=== PATIENT | female | born 1940 | race Caucasian/White ===

== ENCOUNTER 2017-12-02 16:48 | Outpatient (CLI) | payer MEDICARE ==
[2017-12-02 17:28] LABS: ALT (SGPT) 25 U/L (8-55); AST (SGOT) 23 U/L (5-34); Albumin 4.6 g/dL (3.4-4.8); Alkaline Phosphatase 93 U/L (40-150); Anion Gap 13 mmol/L (10-20); BUN (Urea Nitrogen) 22 mg/dL (9.8-20.1); Bilirubin, Total 0.7 mg/dL (0.2-1.2); Calc. Creatinine Clearance 0 mL/min (70-130); Calcium 9.8 mg/dL (7.8-10.44); Carbon Dioxide 24 mmol/L (23-31); Chloride 106 mmol/L (98-107); Estimated GFR-MDRD 40; Globulin 3.3 g/dL (2.4-3.5); Glucose 101 mg/dL (83-110); Potassium 4.4 mmol/L (3.5-5.1); Protein, Total 7.9 g/dL (6.0-8.3); Sodium 139 mmol/L (136-145)
[2017-12-02 18:01] LABS: #Basophils 0.1 thou/uL (0.0-0.2); #Eosinphils 0.3 thou/uL (0.0-0.7); #Lymphocytes 2.2 thou/uL (1.20-3.40); #Monocytes 0.4 thou/uL (0.11-0.59); #Neutrophils 2.7 thou/uL (1.40-6.50); %Eosinophils 5.4 % (0.0-10.0); %Lymphocytes 38.1 % (21.0-51.0); %Monocytes 7.2 % (0.0-10.0); %Neutrophils 48.3 % (42.0-75.0); Hemoglobin 11.7 g/dL (12.0-16.0); MDiff Complete? YES; Macrocytosis SLIGHT = 6-15 cells (100X) (0-5/hpf); Mean Corpuscular HGB CONC 35.8 g/dL (32.0-36.0); Mean Corpuscular Hemoglobin 42.2 pg (27.0-31.0); PLT Morphology Comment Appears Adequate; Platelet Count 334 thou/uL (130-400); RBC Distribution Width 11.4 % (11.5-14.5); Red Blood Cell (RBC) Count 2.78 mill/uL (4.20-5.40); White Blood Cell (WBC) Count 5.7 thou/uL (4.8-10.8)
--- NOTE | 2017-12-02 21:51 | HP ---
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 Has been in the [facility] for more than 50 years. B ecause of complaints of right upper quadrant pain and back radiation, CAT scan of abdomen and pelvis was ordered by Dr. Fer Day. Study performed at [facility] on 10/04/2017 revealing a large calcified gallstone without findings of cholecystitis, otherwise normal CAT scan. The patient repor ts for evaluation. Labs submitted in 03/2017, CBC, comprehensive metabolic profile, clinical patholo gy laboratories were negative. Urinalysis on 09/20/2017 was normal. Urine culture on 09/20/2017 was normal. PAST MEDICAL HISTORY: Noncontributory. PAST SURGICAL HISTORY: Hysterectomy, bilateral salpingo-oophorectomy. TOBACCO: None. ALCOHOL: None. ALLERGIES: PENICILLIN. MEDICATIONS: Pravastatin, Combivir. SOCIAL HISTORY: The patient has not had a colonoscopy or mammogram in the past. REVIEW OF SYSTEMS: Ten point noncontributory. PHYSICAL EXAMINATION: VITAL SIGNS: 135 pounds, 5 feet 9 inches, blood pressure 162/88, heart rate 99, temperature 99.5 deg quin. HEAD, EARS, EYES, NOSE, AND THROAT: Unremarkable. LUNGS: Clear to auscultation. CARDIAC: Regular rate and rhythm without murmur or gallop. ABDOMEN: Soft. Mild tenderness in right upper quadrant, mild guarding. EXTREMITIES: Unremarkable. ASSESSMENT AND PLAN: Cholecystitis. We recommend laparoscopic video cholecystectomy for her gallsto ne, cholelithiasis, and cholecystitis. Risk of infection, bleeding, visceral and biliary injury disc ussed. Questions were answered. I have offered laparoscopic cholecystectomy tomorrow, but the patie nt wishes to wait until next week. She will follow up with me in 2-3 weeks postoperatively.
== END 2017-12-02 16:49 | disposition home or self-care (01) ==
LOC: LABBT 16:48
PROVIDERS: ATTEND Specialist
DX: Z01.818 Encounter for other preprocedural examination (principal); K80.20 Calculus of gallbladder without cholecystitis without obstruction
CPT/HCPCS: 80053; 85025; 93005; 93010

== ENCOUNTER 2017-12-08 06:11 | Day surgery (SDC) | payer MEDICARE ==
[2017-12-02 17:12] VITALS: BMI 19.9
--- NOTE | 2017-12-02 21:51 | HP ---
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 Has been in the [employer] [facility] for more than 50 years. B ecause of complaints of right upper quadrant pain and back radiation, CAT scan of abdomen and pelvis was ordered by Dr. Fer Day. Study performed at [facility] on 10/04/2017 revealing a large calcified gallstone without findings of cholecystitis, otherwise normal CAT scan. The patient repor ts for evaluation. Labs submitted in 03/2017, CBC, comprehensive metabolic profile, clinical patholo gy laboratories were negative. Urinalysis on 09/20/2017 was normal. Urine culture on 09/20/2017 was normal. PAST MEDICAL HISTORY: Noncontributory. PAST SURGICAL HISTORY: Hysterectomy, bilateral salpingo-oophorectomy. TOBACCO: None. ALCOHOL: None. ALLERGIES: PENICILLIN. MEDICATIONS: Pravastatin, Combivir. SOCIAL HISTORY: The patient has not had a colonoscopy or mammogram in the past. REVIEW OF SYSTEMS: Ten point noncontributory. PHYSICAL EXAMINATION: VITAL SIGNS: 135 pounds, 5 feet 9 inches, blood pressure 162/88, heart rate 99, temperature 99.5 deg quin. HEAD, EARS, EYES, NOSE, AND THROAT: Unremarkable. LUNGS: Clear to auscultation. CARDIAC: Regular rate and rhythm without murmur or gallop. ABDOMEN: Soft. Mild tenderness in right upper quadrant, mild guarding. EXTREMITIES: Unremarkable. ASSESSMENT AND PLAN: Cholecystitis. We recommend laparoscopic video cholecystectomy for her gallsto ne, cholelithiasis, and cholecystitis. Risk of infection, bleeding, visceral and biliary injury disc ussed. Questions were answered. I have offered laparoscopic cholecystectomy tomorrow, but the patie nt wishes to wait until next week. She will follow up with me in 2-3 weeks postoperatively.
[2017-12-08] MEDS ORDERED: Levofloxacin 500 mg/D5W 100 ml Premix Bag ONE (06:41)
[2017-12-08] MEDS ORDERED: Ketorolac Tromethamine 30 MG/ML VIAL ONE (06:41)
[2017-12-08] MEDS ORDERED: Bupivacaine HCl 0.5%/Epinephrine 1:200,000/PF 30 ml Vial ONE (07:03)
[2017-12-08] MEDS ORDERED: Fentanyl 100 MCG/2 ML VIAL ONE ×2 (07:23)
--- NOTE | 2017-12-08 09:46 | OP ---
DATE OF PROCEDURE: 12/08/2017 PREOPERATIVE DIAGNOSES: Chronic cholecystitis, cholelithiasis, human immunodeficiency virus positive . POSTOPERATIVE DIAGNOSES: Chronic cholecystitis, cholelithiasis, human immunodeficiency virus positiv e. PROCEDURE: Laparoscopic video cholecystectomy. FINDINGS: Very large stone. SURGEON: Dr. Moise Rankin ANESTHESIA: General. Local 0.5% Marcaine with epinephrine 30 mL. PROCEDURE IN DETAIL: The patient was taken to the operating room under general anesthesia, abdomen w as prepared with ChloraPrep, draped in routine fashion. Local anesthetic infiltrated in the skin and subcutaneous tissue about each port site. A right subcostal midclavicular incision made and pneumop eritoneum to 15 mmHg obtained with the Veress needle, replacing it with a 5 port and video laparoscop e inserted. Periumbilical adhesions noted and supraumbilical incision made and a 5 mm port placed an d video laparoscope moved to this port. Right subxiphoid incision made and 11 port placed. Right la teral subcostal incision made and a 5 port placed. Liver appeared to be normal. Fundus of gallbladd er grasped and reflected cephalad. Infundibulum grasped laterally. Cystic artery and duct dissected free. Critical view obtained. Cystic artery and duct doubly clipped proximally, divided, and gallb ladder dissected free from liver bed obtaining good hemostasis prior to division of final peritoneal attachments. Gallbladder and large stone removed by fragmenting the stone. Hemostasis ensured with the cautery. Irrigant and pneumoperitoneum evacuated. All instruments removed and all skin incision s approximated with interrupted subdermal 4-0 Monocryl and DermaGlue applied.
[2017-12-08] MEDS ORDERED: Lidocaine 1% PF 5 ML VIAL ONE (11:56)
[2017-12-08] MEDS ORDERED: PROPOFOL 200 MG/20 ML VIAL ONE (11:56)
[2017-12-08] MEDS ORDERED: Dexamethasone 20 MG/5 ML VIAL ONE (11:56)
[2017-12-08] MEDS ORDERED: Ondansetron HCl/PF 4 MG/2 ML Vial ONE (11:56)
[2017-12-08] MEDS ORDERED: Glycopyrrolate 0.2 MG/ML 5 ML SYRINGE ONE (11:56)
[2017-12-08] MEDS ORDERED: PHENYLEPHRINE-NS 100 MCG/ML 10 ML SYRINGE ONE (11:56)
== END 2017-12-08 10:30 | disposition home or self-care (01) ==
LOC: SDC 06:11
PROVIDERS: ATTEND Specialist
PROC: 0FT44ZZ Resection of Gallbladder, Percutaneous Endoscopic Approach (ICD-10-PCS; principal; 2017-12-08)
DX: K80.10 Calculus of gallbladder with chronic cholecystitis without obstruction (principal); Z79.2 Long term (current) use of antibiotics; Z79.899 Other long term (current) drug therapy; Z88.0 Allergy status to penicillin
CPT/HCPCS: 88304; J0131; J0670; J1100; J1885; J1956; J2001; J2405; J2704; J3010

== ENCOUNTER 2018-02-10 08:09 | Outpatient (CLI) | payer MEDICARE | END 2018-02-10 08:10 | disposition home or self-care (01) | LOC: BICMAMMO 08:09 | PROVIDERS: ATTEND Internal Medicine | DX: Z13.820 Encounter for screening for osteoporosis (principal); M81.0 Age-related osteoporosis without current pathological fracture; M85.852 Other specified disorders of bone density and structure, left thigh | CPT/HCPCS: 77080 ==

== ENCOUNTER 2019-07-19 13:46 | Outpatient (CLI) | payer MEDICARE ==
[2019-07-19 14:53] LABS: ALT (SGPT) 22 U/L (8-55); AST (SGOT) 27 U/L (5-34); Albumin 4.2 g/dL (3.4-4.8); Alkaline Phosphatase 83 U/L (40-110); Anion Gap 10 mmol/L (10-20); BUN (Urea Nitrogen) 21 mg/dL (9.8-20.1); Bilirubin, Total 1.2 mg/dL (0.2-1.2); Calc. Creatinine Clearance 0 mL/min (70-130); Calcium 9.7 mg/dL (7.8-10.44); Carbon Dioxide 28 mmol/L (23-31); Chloride 104 mmol/L (98-107); Estimated GFR-MDRD 38; Globulin 3.4 g/dL (2.4-3.5); Glucose 116 mg/dL (83-110); Potassium 4.1 mmol/L (3.5-5.1); Protein, Total 7.6 g/dL (6.0-8.3); Sodium 138 mmol/L (136-145)
[2019-07-19 16:20] LABS: #Basophils 0.1 thou/uL (0.0-0.2); #Eosinphils 0.2 thou/uL (0.0-0.7); #Lymphocytes 2.3 thou/uL (1.20-3.40); #Monocytes 0.4 thou/uL (0.11-0.59); #Neutrophils 2.7 thou/uL (1.40-6.50); %Basophils 1.2 % (0.0-1.0); %Eosinophils 3.9 % (0.0-10.0); %Lymphocytes 40.5 % (21.0-51.0); %Monocytes 6.5 % (0.0-10.0); %Neutrophils 47.9 % (42.0-75.0); Hemoglobin 11.2 g/dL (12.0-16.0); MDiff Complete? YES; Macrocytosis SLIGHT = 6-15 cells (100X) (0-5/hpf); Mean Corpuscular HGB CONC 35.3 g/dL (32.0-36.0); Mean Corpuscular Hemoglobin 42.1 pg (27.0-31.0); Mean Platelet Volume 6.4 fL (7.4-10.4); Ovalocytes SLIGHT = 2-5 cells (100X) (0-1/hpf); Platelet Count 244 thou/uL (130-400); Platelet Morphology Comment Appears Adequate; Polychromasia SLIGHT = 2-3 cells (100X) (0-2/hpf); RBC Distribution Width 11.4 % (11.5-14.5); Red Blood Cell (RBC) Count 2.66 mill/uL (4.20-5.40); Tear Drops SLIGHT = 2-5 cells (100X) (0-1/hpf); White Blood Cell (WBC) Count 5.7 thou/uL (4.8-10.8)
== END 2019-07-19 13:47 | disposition home or self-care (01) ==
LOC: LABBT 13:46
PROVIDERS: ATTEND Internal Medicine Cardiovascular Disease
DX: Z01.812 Encounter for preprocedural laboratory examination (principal)
CPT/HCPCS: 80053; 85025

== ENCOUNTER 2019-07-28 05:59 | Inpatient (IN) | payer MEDICARE ==
[2019-07-28] MEDS ORDERED: Diazepam 5 MG TAB ONE (07:28)
[2019-07-28 07:36] LABS: ALT (SGPT) 22 U/L (8-55); AST (SGOT) 31 U/L (5-34); Albumin 4.2 g/dL (3.4-4.8); Alkaline Phosphatase 82 U/L (40-110); Anion Gap 11 mmol/L (10-20); BUN (Urea Nitrogen) 28 mg/dL (9.8-20.1); Bilirubin, Total 2.3 mg/dL (0.2-1.2); Calc. Creatinine Clearance 31 mL/min (70-130); Calcium 9.9 mg/dL (7.8-10.44); Carbon Dioxide 25 mmol/L (23-31); Cardiac Risk 5.7 (Less than 4.5); Chloride 107 mmol/L (98-107); Cholesterol 199 mg/dl (< 200 Desired); Estimated GFR-MDRD 34; Globulin 3.2 g/dL (2.4-3.5); Glucose 110 mg/dL (83-110); HDL Cholesterol 35 mg/dL (>60 Neg Risk); LDL Cholesterol, Calculated 102 mg/dL; Potassium 4.1 mmol/L (3.5-5.1); Protein, Total 7.4 g/dL (6.0-8.3); Sodium 139 mmol/L (136-145); Triglycerides 309 mg/dL (Less than 150)
[2019-07-28] MEDS ORDERED: Diazepam 5 MG TAB PO SCH (07:45)
[2019-07-28] MEDS ORDERED: Heparin (Artline) 1,000 ML ONE (09:34)
[2019-07-28] MEDS ORDERED: Nitroglycerin 100MG/250ML BOT 250 ML ONE (09:35)
[2019-07-28] MEDS ORDERED: Heparin 10,000 UNITS/1 ML VIAL ONE (09:35)
[2019-07-28] MEDS ORDERED: Verapamil 5 MG/2 ML VIAL ONE (09:39)
[2019-07-28] MEDS ORDERED: Fentanyl 100 MCG/2 ML VIAL ONE (09:39)
[2019-07-28] MEDS ORDERED: Midazolam HCl 2 mg/2 ml Vial ONE (09:39)
[2019-07-28] MEDS ORDERED: Lidocaine 1% (PF) 30 ML VIAL ONE (09:39)
[2019-07-28] MEDS ORDERED: Sodium Chloride 0.9% 1,000 ML IV SCH (11:56)
[2019-07-28] MEDS ORDERED: Nitroglycerin 0.4 MG TAB (25 Tab Bottle) SL PRN ×2 (11:56→20:12)
[2019-07-28] MEDS ORDERED: Acetaminophen/Codeine 30-300mg Tablet PO PRN ×4 (11:56→20:13)
[2019-07-28] MEDS ORDERED: Iopamidol 370 76% 100 ML VIAL ONE (13:20)
[2019-07-28] MEDS ORDERED: Communication Order-Pharmacy FS SCH (14:48)
[2019-07-28] MEDS ORDERED: Communication Order-Pharmacy FS ONE (14:48)
[2019-07-28] MEDS: [UNRECOGNIZED DRUG - OTHER] PO SCH ×2 (16:52→21:08)
--- NOTE | 2019-07-28 16:58 | ULT ---
BILATERAL CAROTID DUPLEX ULTRASOUND: HISTORY: Bilateral carotid bruits. TECHNIQUE: Grayscale, color-flow and spectral Doppler ultrasound imaging of the extracranial carotid artery syst ems was performed bilaterally. FINDINGS: There is atherosclerotic plaque seen within the bilateral common carotid arteries as well as involvin g the carotid bulb and proximal internal carotid arteries bilaterally. There is severe (greater than 70%) stenosis involving the left internal carotid artery based on eleva nani peak systolic velocity of 257.6 cm/s. There is also elevated left ICA/CCA ratio of 2.68. There is less than 50% maximal stenosis in the right internal carotid artery based on the peak systol ic velocity of 115.2 cm/s and an ICA/CCA ratio of 1.68. Vertebral arteries: Antegrade flow is demonstrated in the vertebral arteries bilaterally. IMPRESSION: 1. Severe (greater than 70%) stenosis involving the left internal carotid artery based on elevated pe ak systolic velocity measurements. 2. No hemodynamically significant stenosis in the right internal carotid artery.
--- NOTE | 2019-07-28 17:38 | RAD ---
RADIOGRAPH CHEST 2 VIEWS: 07/28/19 HISTORY: 79-year-old female for preoperative clearance. Scheduled for CABG. FINDINGS: The thoracic aorta is tortuous and ectatic. There is no evidence of air space density, pneumothorax, or pulmonary edema. There is no cardiomegaly or pleural effusion. IMPRESSION: 1) No acute cardiopulmonary findings. 2) Ectasia of thoracic aorta. jn [] POS: TPC
--- NOTE | 2019-07-28 19:59 | CON ---
DATE OF CONSULTATION: 07/28/2019 REQUESTING PHYSICIAN: Dr. Clarke. PRIMARY CARE PHYSICIAN: Dr. Fer Day. CHIEF COMPLAINT: Chest discomfort. HISTORY OF PRESENT ILLNESS: The patient is a 79-year-old woman with no known prior cardiac history. About three months ago, she began having some chest discomfort when she walks, it is a pressure or heaviness and typically associated with some shortness of breath and will go away with rest. It has gradually been getting worse and it is now typical that when she walks her dog, she will walk about half a block and then come back and start having pain and have to sit down and rest. There is a long haul at work, where she walks, two lengths of the talbot will generate the symptoms. Stress testing showed a fixed apical defect as well as a moderate reversible in the inferior wall with nearly identical stress and resting EF at 49% and 48% respectively. Echocardiography suggested an EF of around 55% to 60%. Her apex was somewhat thinned and was akinetic. Cardiac catheterization today demonstrates an occluded dominant right coronary artery ulcerated lesion associated with about a 60% stenosis in the left main and a proximal 80% lesion in her LAD. PAST MEDICAL HISTORY: Significant for hypertension and an HIV infection with undetectable viral load on antiviral. MEDICATIONS: 1. Combivir (lamivudine/zidovudine one capsule b.i.d.). 2. Crixivan (indinavir) 800 mg t.i.d. 3. Pravachol 40 mg at bedtime. 4. Multivitamin. 5. Calcium carbonate. 6. Baby aspirin a day. ALLERGIES: SHE REPORTS AN ALLERGY TO PENICILLIN WHICH CAUSES A SENSATION OF THROAT SWELLING AND THICKENING OF HER TONGUE. SHE HAS NEVER SMOKED. FAMILY HISTORY: The patient's father of complications of emphysema. The patient's mother of pneumonia complicating surgery. REVIEW OF SYSTEMS: Negative for any other shortness of breath, any PND, or any dependent edema. Negative for any palpitations. Negative for any eye, speech, facial, or extremity symptoms consistent with TIAs. Negative for any crampy pain in her calves, thighs, or buttocks when she walks. PHYSICAL EXAMINATION: GENERAL: She is a thin woman, in no distress. Height 5 feet 10 inches. Weight is 141 pounds. VITAL SIGNS: Heart rate 69 and blood pressure 141/72. HEENT: She has no xanthelasma. NECK: No JVD. She has a fairly loud left carotid bruit and a soft right carotid bruit. CHEST: Clear to auscultation. HEART: She has regular rate and rhythm without obvious murmur or gallop. ABDOMEN: Soft and nontender without any obvious masses or bruits. EXTREMITIES: She has palpable radial and femoral pulses bilaterally with bilateral femoral bruits, louder on the left than on the right. She has faintly palpable popliteal pulses and very difficult to appreciate dorsalis pedis pulses. I was not able to feel posterior tibial pulses. Her feet were warm and pink with about 1.5 second capillary refill. There is no clubbing, cyanosis, or edema. She has a large what appears to be good quality saphenous vein readily available for the length of the lower legs. LABORATORY EXAM: White count of 5.7, hemoglobin 11.2, hematocrit 31.7, platelets 244,000 with an MCV of 119, which is similar to what it was in November of 2017 when she had a laparoscopic cholecystectomy. Her electrolytes were normal. Glucose 110 , BUN 18, creatinine 1.49 with an estimated GFR of 34, calcium is 9.0, protein 7.4, albumin 4.2, bilirubin is 2.3, alkaline phosphatase 82, AST 31, and ALT 22. On the of this month, her bilirubin was 1.2, alkaline phosphatase 83, AST 27, ALT 22, BUN 21, creatinine 1.36, and estimated GFR 38. In November of 2017, her bilirubin was 0.7, alkaline phosphatase 93, AST 23, ALT 25, BUN is 22, creatinine 1.28, and estimated GFR of 40. Her fasting lipid showed a triglyceride of 309, cholesterol 199, LDL 102, and HDL 35. Echo and stress testing are as above. Cardiac catheterization shows a right-dominant system with an occluded right coronary with PDA filling by [id number] collaterals. She has an ulcerated lesion in her mid distal left main, associated with serial 60% stenoses and then an apple core type 80% lesion of the proximal LAD with some luminal irregularity scattered in the LAD. She has a circumflex that appears to be free of disease and gives rise to a fairly large obtuse marginal. Aortic pressure on pullback was 114/62 with a mean of 83 from an LV pressure of 122/6 with an EDP of 11. IMPRESSION AND RECOMMENDATIONS: Reasonably healthy-appearing woman in spite of her HIV status with significant left main and proximal LAD lesions and occluded right coronary, it is probably worth looking into why her bilirubin is elevated on this morning's labs. We are going to check a chest x-ray and even though she is asymptomatic, check a carotid ultrasound to assess the carotid bruits. We will tentatively plan on coronary artery bypass grafting on Wednesday. Job ID: [id number] MTDD
[2019-07-28] MEDS ORDERED: CABG-Vancomycin 1 GM in Premix Bag 1 BAG IVPB SCH (20:30)
[2019-07-28] MEDS ORDERED: FLU VACC TS2019-20(65YR UP)/PF 180 MCG/0.5 ML SYRINGE IM ONE (21:00)
[2019-07-28] MEDS ORDERED: Docusate 100 MG CAP PO SCH (21:00)
[2019-07-28] MEDS ORDERED: Atorvastatin Calcium 10 MG TAB PO SCH (21:00)
[2019-07-28] MEDS: Docusate 100 MG CAP PO SCH (21:09)
[2019-07-28] MEDS: Atorvastatin Calcium 10 MG TAB PO SCH (21:09)
[2019-07-28] MEDS: LAMIVUDINE PO SCH (21:10)
[2019-07-28] MEDS: ZIDOVUDINE PO SCH (21:10)
--- NOTE | 2019-07-28 23:19 | CON ---
DATE OF CONSULTATION: 07/28/2019 CHIEF COMPLAINT: Abnormal liver tests. HISTORY OF PRESENT ILLNESS: Ms. Fox is a 79-year-old woman, who underwent cardiac catheterization today due to chest pain on exertion that has been gradually increasing over the last few months. She has had no nausea, vomiting, diarrhea, or constipation. No weight loss. No blood in the stool. She does get some shortness of breath with exertion as well. Heart catheterization today showed severe stenosis of the left main carotid artery, proximal LAD, and proximal left circumflex. She was therefore admitted and is being evaluated for coronary artery bypass graft for Wednesday morning. She did have blood work done today and incidentally was noted to have an elevated bilirubin at 2.3. She had had prior liver tests at this institution back a week ago and also in November of 2017, at which point her bilirubin was normal in the 1.2 to 0.7 range. Rest of her liver tests are normal currently. PAST MEDICAL HISTORY: HIV. States that her viral levels have always been very low without any problems on anti-retroviral treatment. PAST SURGICAL HISTORY: Laparoscopic cholecystectomy back in November of 2017, hysterectomy. FAMILY HISTORY: Negative for GI malignancy. SOCIAL HISTORY: No alcohol, tobacco, or drugs. 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 ALLERGIES: PENICILLIN. OUTPATIENT MEDICATIONS: Include: 1. Combivir and indinavir. 2. Multiple vitamin. 3. Pravastatin. 4. Calcium. 5. Aspirin. REVIEW OF SYSTEMS: Negative x10 systems reviewed, except as stated in the history of present illness. PHYSICAL EXAMINATION: VITAL SIGNS: Temperature 97.8, pulse 76, blood pressure 156/69. GENERAL: She is in no acute distress. Alert and oriented x3. EYES: Have no scleral icterus. Oropharynx is clear without lesions. No cervical or supraclavicular lymphadenopathy. LUNGS: Clear to auscultation bilaterally. HEART: Regular rate and rhythm without murmur. ABDOMEN: Soft, nontender, and nondistended. Bowel sounds are present. EXTREMITIES: No lower extremity edema. Cranial nerves are grossly intact. LABORATORY DATA: White blood cell count 5.7, hemoglobin 11.2, MCV 119, platelets 244, creatinine 1.49, bilirubin 2.3, AST 31, ALT 22, albumin 4.2. IMPRESSION: 1. Severe coronary artery disease of the left main and proximal LAD and proximal left circumflex. The plan is for coronary artery bypass graft on Wednesday. 2. Isolated hyperbilirubinemia. She has bilirubin of 2.3 with otherwise completely normal liver tests including alkaline phosphatase. This could be due to Gilbert's and there is not any prior history of elevated bilirubin. Other possibilities would be a medication side effect. However, her alkaline phosphatase is normal and transaminases are normal, and this is not likely. HIV cholangiopathy would be unlikely given that she has never had any decompensation with her HIV. Otherwise, consideration could be another source for cholestasis. Choledocholithiasis is in consideration. However, she has had no symptoms to suggest this and she only had a large gallstone at the time of her cholecystectomy and all her other liver tests are normal. The likelihood of this is very low. Overall, this bilirubin should not require further intervention at this time and the primary treatment will just be to follow the trend of her liver tests. If they significantly start increasing, then further workup can be performed. In the meantime, I will check a viral hepatitis panel. 3. Macrocytic anemia. 4. Apparent chronic renal insufficiency. RECOMMENDATIONS: 1. Follow the trend of her liver tests. Please call if these increase further. If they do, then consideration for additional blood work and imaging will be performed at that time. 2. Check B12 and folate and iron studies given the macrocytic anemia. 3. There is no contraindication for following through with heart surgery from a GI standpoint regarding the elevated bilirubin. 4. I will sign off for now. Please call if GI can be of assistance. Job ID: [id number]
[2019-07-29 04:19] LABS: #Eosinphils 0.2 thou/uL (0.0-0.7); #Monocytes 0.4 thou/uL (0.11-0.59); #Neutrophils 2.1 thou/uL (1.40-6.50); %Basophils 0.6 % (0.0-1.0); %Lymphocytes 42.2 % (21.0-51.0); %Monocytes 7.6 % (0.0-10.0); %Neutrophils 45.6 % (42.0-75.0); Hemoglobin 10.8 g/dL (12.0-16.0); Mean Corpuscular Hemoglobin 42.3 pg (27.0-31.0); Mean Platelet Volume 6.6 fL (7.4-10.4); Platelet Count 220 thou/uL (130-400); RBC Distribution Width 11.3 % (11.5-14.5); Red Blood Cell (RBC) Count 2.56 mill/uL (4.20-5.40); White Blood Cell (WBC) Count 4.7 thou/uL (4.8-10.8)
[2019-07-29 04:31] LABS: ALT (SGPT) 21 U/L (8-55); AST (SGOT) 25 U/L (5-34); Albumin 3.8 g/dL (3.4-4.8); Alkaline Phosphatase 76 U/L (40-110); Anion Gap 14 mmol/L (10-20); BUN (Urea Nitrogen) 22 mg/dL (9.8-20.1); Bilirubin, Total 1.7 mg/dL (0.2-1.2); Calc. Creatinine Clearance 36 mL/min (70-130); Calcium 9.2 mg/dL (7.8-10.44); Carbon Dioxide 22 mmol/L (23-31); Chloride 108 mmol/L (98-107); Estimated GFR-MDRD 43; Globulin 3.1 g/dL (2.4-3.5); Glucose 92 mg/dL (83-110); Iron 68 ug/dL (50-170); Iron Binding Capacity, Total 255 mcg/dL (265-497); Potassium 3.9 mmol/L (3.5-5.1); Protein, Total 6.9 g/dL (6.0-8.3); Sodium 140 mmol/L (136-145)
[2019-07-29 04:55] LABS: Vitamin B12 274 pg/mL (211-911)
[2019-07-29 05:00] LABS: HBSAB Concentration 1.56 mIU/mL; HBSAg Index 0.22 S/CO (0-0.99); Hep B Surf AB Non-Reactive (NonReactive); Hep B Surf Ag Non-Reactive S/CO (NonReactive); Hep C IgG Ab Non-Reactive (NonReactive); Hep C Index 0.15 S/CO (0-0.79)
[2019-07-29] MEDS: Multivitamin W/ Minerals 1 TAB PO SCH (08:55)
[2019-07-29] MEDS: Calcium Carbonate 600 MG TAB PO SCH (08:55)
[2019-07-29] MEDS: Docusate 100 MG CAP PO SCH ×2 (08:55→20:23)
[2019-07-29] MEDS: [UNRECOGNIZED DRUG - OTHER] PO SCH ×3 (08:56→20:24)
[2019-07-29] MEDS: LAMIVUDINE PO SCH ×2 (08:56→20:24)
[2019-07-29] MEDS: Aspirin 81 mg Enteric Coated Tablet PO SCH (08:56)
[2019-07-29] MEDS: ZIDOVUDINE PO SCH ×2 (08:56→20:24)
[2019-07-29] MEDS ORDERED: Aspirin 81 mg Enteric Coated Tablet PO SCH (09:00)
[2019-07-29] MEDS ORDERED: Multivitamin W/ Minerals 1 TAB PO SCH (09:00)
[2019-07-29] MEDS ORDERED: Calcium Carbonate 600 MG TAB PO SCH (09:00)
[2019-07-29] MEDS ORDERED: FLU VACC TS2019-20(65YR UP)/PF 180 MCG/0.5 ML SYRINGE IM ONE (16:30)
[2019-07-29] MEDS: Atorvastatin Calcium 10 MG TAB PO SCH (20:23)
[2019-07-30 05:08] LABS: ALT (SGPT) 18 U/L (8-55); AST (SGOT) 22 U/L (5-34); Albumin 3.9 g/dL (3.4-4.8); Alkaline Phosphatase 81 U/L (40-110); Anion Gap 13 mmol/L (10-20); BUN (Urea Nitrogen) 21 mg/dL (9.8-20.1); Bilirubin, Total 1.4 mg/dL (0.2-1.2); Calc. Creatinine Clearance 31 mL/min (70-130); Calcium 9.2 mg/dL (7.8-10.44); Carbon Dioxide 25 mmol/L (23-31); Chloride 106 mmol/L (98-107); Estimated GFR-MDRD 35; Glucose 99 mg/dL (83-110); Potassium 4.1 mmol/L (3.5-5.1); Protein, Total 6.9 g/dL (6.0-8.3); Sodium 140 mmol/L (136-145)
[2019-07-30] MEDS: Aspirin 81 mg Enteric Coated Tablet PO SCH (08:37)
[2019-07-30] MEDS: Docusate 100 MG CAP PO SCH ×2 (08:37→21:34)
[2019-07-30] MEDS: Calcium Carbonate 600 MG TAB PO SCH (08:37)
[2019-07-30] MEDS: [UNRECOGNIZED DRUG - OTHER] PO SCH ×3 (08:38→21:36)
[2019-07-30] MEDS: Multivitamin W/ Minerals 1 TAB PO SCH (08:38)
[2019-07-30] MEDS: LAMIVUDINE PO SCH ×2 (08:38→21:35)
[2019-07-30] MEDS: ZIDOVUDINE PO SCH ×2 (08:38→21:35)
[2019-07-30] MEDS: Atorvastatin Calcium 10 MG TAB PO SCH (21:34)
[2019-07-31 05:15] LABS: ALT (SGPT) 17 U/L (8-55); AST (SGOT) 23 U/L (5-34); Alkaline Phosphatase 74 U/L (40-110); Anion Gap 13 mmol/L (10-20); BUN (Urea Nitrogen) 24 mg/dL (9.8-20.1); Bilirubin, Total 1.4 mg/dL (0.2-1.2); Calc. Creatinine Clearance 31 mL/min (70-130); Calcium 9.5 mg/dL (7.8-10.44); Carbon Dioxide 23 mmol/L (23-31); Chloride 106 mmol/L (98-107); Estimated GFR-MDRD 35; Glucose 107 mg/dL (83-110); Potassium 4.2 mmol/L (3.5-5.1); Sodium 138 mmol/L (136-145)
[2019-07-31] MEDS ORDERED: Albumin 5% 500 ML ONE (05:53)
[2019-07-31] MEDS ORDERED: Heparin 10,000 UNITS/1 ML VIAL 30,000 UNITS in Sodium Chloride 0.9% 1,000 ML FS SCH (06:30)
[2019-07-31] MEDS ORDERED: CABG-Vancomycin 1 GM in Premix Bag 1 BAG IVPB SCH (09:00)
[2019-07-31] MEDS ORDERED: Midazolam HCl 5 mg/5 ml Vial ONE (09:08)
[2019-07-31] MEDS ORDERED: Fentanyl 250 MCG/5 ML VIAL ONE (09:08)
[2019-07-31] MEDS ORDERED: PHENYLEPHRINE-NS 100 MCG/ML 10 ML SYRINGE ONE ×3 (10:15→11:22)
[2019-07-31] MEDS ORDERED: Cardioplegic Soln 1,000 ML BAG ONE (10:35)
[2019-07-31] MEDS ORDERED: Rocuronium Bromide 10 MG/ML (10ML VIAL) ONE (10:35)
[2019-07-31] MEDS ORDERED: Aminocaproic Acid 5 GM/20 ML VIAL ONE (10:35)
[2019-07-31] MEDS ORDERED: Heparin 30,000 units/30 ml VIAL ONE (10:35)
[2019-07-31] MEDS ORDERED: PROPOFOL 200 MG/20 ML VIAL ONE (10:35)
[2019-07-31] MEDS ORDERED: Calcium Chloride 1 GM/10 ML Abboject SYRINGE ONE (10:35)
[2019-07-31] MEDS ORDERED: Papaverine 60 MG/2 ML VIAL ONE (10:35)
[2019-07-31] MEDS ORDERED: Vecuronium 10 MG VIAL ONE (10:35)
[2019-07-31] MEDS ORDERED: Magnesium Sulfate 1 GM/2 ML VIAL ONE (10:35)
[2019-07-31] MEDS ORDERED: Protamine Sulfate 250 MG/25 ML VIAL ONE (10:35)
[2019-07-31] MEDS ORDERED: Lidocaine 2% PF 5 ML VIAL ONE (10:35)
[2019-07-31] MEDS ORDERED: Potassium Chloride 60 MEQ/30 ML VIAL ONE (10:35)
[2019-07-31] MEDS ORDERED: ePHEDrine/0.9% NaCl/PF SYRINGE 50 mg/10 ml ONE (10:35)
[2019-07-31] MEDS ORDERED: Sodium Bicarb 50 MEQ/50 ML Abboject 8.4% SYRINGE ONE (10:35)
[2019-07-31] MEDS ORDERED: Heparin 5,000 UNITS/ML VIAL ONE (10:35)
[2019-07-31] MEDS ORDERED: Thrombin 5000 UNITS/5 ML VIAL ONE (10:35)
[2019-07-31] MEDS ORDERED: Potassium Chloride 20 MEQ/100 ML PREMIX BAG IVPB PRN (14:24)
[2019-07-31] MEDS ORDERED: Post-Op Insulin Drip Protocol IVPB ONE (14:24)
[2019-07-31] MEDS ORDERED: Guaifenesin DM 100-10/5 ML UDCUP PO PRN (14:24)
[2019-07-31] MEDS ORDERED: Nitroglycerin 50 MG/250 ML BOT 250 ML IVPB PRN (14:24)
[2019-07-31] MEDS ORDERED: Hetastarch 6% 500 ML 500 ML IVPB PRN (14:24)
[2019-07-31] MEDS ORDERED: Bisacodyl 5 MG TAB PO PRN (14:24)
[2019-07-31] MEDS ORDERED: hydrALAZINE 20 MG/ML VIAL SLOW IVP PRN (14:24)
[2019-07-31] MEDS ORDERED: Morphine 2 MG/ML SYRINGE SLOW IVP PRN (14:24)
[2019-07-31] MEDS ORDERED: Fentanyl 100 MCG/2 ML VIAL SLOW IVP PRN (14:24)
[2019-07-31] MEDS ORDERED: Bisacodyl 10 MG SUPP PR PRN (14:24)
[2019-07-31] MEDS ORDERED: HYDROcodone/Acetaminophen 5/325 mg Tablet PO PRN (14:24)
[2019-07-31] MEDS ORDERED: Promethazine HCl 25 MG/ML VIAL IM PRN (14:24)
[2019-07-31] MEDS ORDERED: Acetaminophen 325 MG TAB PO PRN (14:24)
[2019-07-31] MEDS ORDERED: Norepinephrine 8 MG/0.9% NS 250 ML IVPB PRN (14:24)
[2019-07-31] MEDS ORDERED: Mag-Al 1200 mg/1200 mg/30 ML UDCUP PO PRN (14:24)
[2019-07-31] MEDS ORDERED: niCARdipine 25 MG in Sodium Chloride 0.9% 250 ML 250 ML IVPB PRN (14:24)
[2019-07-31 14:26] LABS: Actual Bicarbonate (HCO3a) 20.6 mEq/L (22-28); CO2 Tension 36.2 mmHg (35.0-45.0); Calcium, Ionized 1.11 mmol/L (1.12-1.30); Carboxyhemoglobin (COHb) 0.6 gm% (0.0-3.0); Hemoglobin (Hb) 11.6 g/dL (12.0-16.0); O2 Tension (PaO2) 113.5 mmHg (> 70.0); Potassium - ABG Lab 4.03 mmol/L (3.70-5.30); Puncture Site ALINE; pH, Arterial 7.37 (7.35-7.45)
--- NOTE | 2019-07-31 14:30 | RAD ---
Exam: Chest one view HISTORY:Status post open heart surgery Comparison: 07/28/2019 FINDINGS: Lines and tubes: Endotracheal tube at the level of the thoracic inlet. Right-sided central venous cat heter with the distal tip projecting over superior vena cava. 2 mediastinal drainage catheters are noted. There are sternotomy wires. Epicardial pacer wires are suspected. Cardiac silhouette: Normal Aorta: Unremarkable Pulmonary vessels: Normal Costophrenic angles: Left-sided pleural effusion. LUNGS: Left lower lobe parenchymal changes. Pneumothorax: Small left apical pneumothorax. Osseous abnormalities: None IMPRESSION: 1. Postoperative changes compatible with open heart surgery. 2. Small left apical pneumothorax. Pleural and parenchymal changes left lung base, obstructing the le ft hemidiaphragm. Transcribed Date/Time: 07/31/2019 2:42 PM
[2019-07-31] MEDS ORDERED: HUMULIN R 100 UNITS in Sodium Chloride 0.9% 100 ML IVPB SCH (14:32)
[2019-07-31] MEDS ORDERED: Dextrose 5% in Water 1,000 ML IV PRN (14:32)
[2019-07-31] MEDS ORDERED: Dextrose 50% Abboject 50 ML SYRINGE SLOW IVP PRN (14:32)
[2019-07-31 14:35] LABS: #Eosinphils 0.1 thou/uL (0.0-0.7); #Lymphocytes 1.4 thou/uL (1.20-3.40); #Monocytes 0.2 thou/uL (0.11-0.59); #Neutrophils 5.7 thou/uL (1.40-6.50); %Basophils 0.2 % (0.0-1.0); %Eosinophils 0.7 % (0.0-10.0); %Lymphocytes 18.6 % (21.0-51.0); %Monocytes 3.2 % (0.0-10.0); %Neutrophils 77.3 % (42.0-75.0); Mean Corpuscular HGB CONC 34.8 g/dL (32.0-36.0); Mean Corpuscular Hemoglobin 40.2 pg (27.0-31.0); Platelet Count 138 thou/uL (130-400); Red Blood Cell (RBC) Count 2.73 mill/uL (4.20-5.40); White Blood Cell (WBC) Count 7.4 thou/uL (4.8-10.8)
[2019-07-31 14:42] LABS: INR-International Normal Ratio 1.3; PTT 28.3 SEC (22.9-36.1); Prothrombin Time 15.9 SEC (12.0-14.7)
[2019-07-31 15:04] LABS: Anion Gap 14 mmol/L (10-20); BUN (Urea Nitrogen) 19 mg/dL (9.8-20.1); Calc. Creatinine Clearance 42 mL/min (70-130); Calcium 7.9 mg/dL (7.8-10.44); Carbon Dioxide 18 mmol/L (23-31); Chloride 114 mmol/L (98-107); Estimated GFR-MDRD 50; Glucose 171 mg/dL (83-110); Potassium 4.2 mmol/L (3.5-5.1); Sodium 142 mmol/L (136-145)
[2019-07-31] MEDS: Sodium Chloride 0.9% 1,000 ML IV SCH (15:14)
--- NOTE | 2019-07-31 19:02 | PDOC.CPN ---
- Subjective Date: 07/31/19 Time: 18:59 Interval history: She had CABG earlier today. She is currently still intubated. - Review of Systems ROS unobtainable: due to endotracheal tube - Objective Allergies/Adverse Reactions: Allergies Allergy/AdvReac Type Severity Reaction Status Date / Time Penicillins Allergy Severe THROAT Verified 07/28/19 15:38 SWELLING Visit Medications: Current Medications Acetaminophen (Tylenol) 650 mg PO Q6H PRN PRN Reason: Headache/Fever Or Mild Pain Hydrocodone Bitart/Acetaminophen (Grasston 5/325) 1 tab PO Q4H PRN PRN Reason: Moderate Pain (4-6) Hydrocodone Bitart/Acetaminophen ([place]ston 5/325) 2 tab PO Q4H PRN PRN Reason: Severe Pain (7-10) Al Hydroxide/Mg Hydroxide (Maalox) 30 ml PO Q4H PRN PRN Reason: Indigestion Albumin Human (Albumin 5%) 12.5 gm IVPB Q6H PRN PRN Reason: To Maintain SBP> 90 mmHG Stop: 08/01/19 14:25 Albumin Human (Albumin 5%) 25 gm IVPB Q6H PRN PRN Reason: To Maintain SBP > 90 mmHG Stop: 08/01/19 14:25 Last Admin: 07/31/19 15:14 Dose: 25 gm Albuterol/Ipratropium (Duoneb) 3 ml NEB Q6H PRN PRN Reason: SHORTNESS OF BREATH Bisacodyl (Dulcolax) 10 mg PO Q12H PRN PRN Reason: Constipation Bisacodyl (Dulcolax) 10 mg WV Q12H PRN PRN Reason: Constipation Dextrose/Water (Dextrose 50%) 25 gm SLOW IVP PRN PRN PRN Reason: PER HYPOGLYCEMIC PROTOCOL Famotidine (Pepcid) 20 mg SLOW IVP DAILY SEAN Fentanyl (Sublimaze) 25 mcg SLOW IVP Q2H PRN PRN Reason: Moderate Pain (4-6) Stop: 08/02/19 08:38 Fentanyl (Sublimaze) 50 mcg SLOW IVP Q2H PRN PRN Reason: Severe Pain (7-10) Stop: 08/02/19 08:38 Glucagon (Glucagon) 1 mg SC PRN PRN PRN Reason: PER HYPOGLYCEMIC PROTOCOL Guaifenesin/Dextromethorphan (Robitussin Dm) 15 ml PO Q4H PRN PRN Reason: Cough Hydralazine HCl (Apresoline) 10 mg SLOW IVP Q6H PRN PRN Reason: To Maintain SBP< 140mmHG Hetastarch/Sodium Chloride (Hespan) 500 mls @ 0 mls/hr IVPB PRN PRN PRN Reason: To Maintain SBP > 90mmHg Stop: 08/01/19 08:38 Norepinephrine Bitartrate (Levophed) 250 mls @ 0 mls/hr IVPB PRN PRN; Protocol PRN Reason: To maintain SBP > 90 mmHG Last Admin: 07/31/19 18:15 Dose: 250 mls Nicardipine HCl 25 mg/ Sodium (Chloride) 260 mls @ 0 mls/hr IVPB INF PRN; Protocol PRN Reason: To Maintain SBP< 140mmHG Nitroglycerin/Dextrose (Nitroglycerin 50 Mg/250 Ml Bot) 250 mls @ 0 mls/hr IVPB PRN PRN; Protocol PRN Reason: To Maintain SBP< 140mmHG Sodium Chloride (Normal Saline 0.9%) 1,000 mls @ 75 mls/hr IV .[id number] SEAN Last Admin: 07/31/19 15:14 Dose: 1,000 mls Insulin Human Regular 100 (units/ Sodium Chloride) 101 mls @ 0 mls/hr IVPB INF SEAN; Protocol Last Admin: 07/31/19 16:15 Dose: 101 mls Dextrose/Water (D5w) 1,000 mls @ 0 mls/hr IV INF PRN PRN Reason: PRN HYPOGLYCEMIC PROTOCOL Insulin Human Regular (Humulin R) 0 units SC Q4H PRN; Protocol PRN Reason: POST OP SLIDING SCALE Morphine Sulfate (Morphine) 2 mg SLOW IVP Q15MIN PRN PRN Reason: Severe Pain (7-10) Ondansetron HCl (Zofran) 4 mg IVP Q6H PRN PRN Reason: Nausea/Vomiting Potassium Chloride (Kcl) 20 meq IVPB PRN PRN PRN Reason: K level </= 4.0 Promethazine HCl (Phenergan) 6.25 mg IM Q4H PRN PRN Reason: Nausea/Vomiting Vital Signs & Weight: Vital Signs Temp Resp 07/31/19 18:00 18 07/31/19 16:00 98.1 F 16 07/31/19 14:30 16 07/31/19 14:10 97.7 F Weight 134 lb 12.8 oz - Physical Exam General: other (Intubated.) HEENT: normocephaly Neck: supple neck Cardiac: regular rate and rhythm Lungs: scattered rhonchi Neuro: no lateralizing findings Abdomen: active bowel sounds Extremities: no edema Skin: clear Musculoskeletal: normal range of motion - Labs Result Diagrams: 07/31/19 14:13 07/31/19 14:13 - Telemetry Sinus rhythms and dysrhythmias: sinus rhythm - Assessment/Plan Assessment/Plan: 1. Severe multivessel CAD 2. S/P CABG 3. HIV with undetectable CD4 count PLAN: - Continue supportive care. - ASA/Statin for life. - BB and ACEI once BP allows.
--- NOTE | 2019-07-31 20:32 | OP ---
DATE OF PROCEDURE: 07/31/2019 PROCEDURES PERFORMED: Coronary artery bypass grafting x4 with left internal mammary artery to the LAD and reverse greater saphenous vein graft from aorta to the first diagonal to the obtuse marginal into the PDA. PREOPERATIVE DIAGNOSIS: Left main coronary artery disease. POSTOPERATIVE DIAGNOSIS: Left main coronary artery disease. HAND LENS POLISHER: Fer Casanova MD ANESTHESIA: General endotracheal anesthesia. INDICATIONS FOR PROCEDURE: The patient is a 79-year-old woman with recent onset of symptoms consistent with angina. She had an abnormal stress test prompting cardiac catheterization that demonstrated serial lesions in her left main and a high-grade lesion in her proximal LAD with more modest disease in the mid LAD and a lesion in her circumflex system proximally. Her occluded right coronary filled by left-sided collaterals. She is now taken to the operating room for surgical revascularization. FINDINGS: Pump time 90 minutes. Cross-clamp time 48 minutes. Good quality saphenous vein. The mammary was small, but dilated to about 2 mm with instillation of papaverine and had excellent flow. The LAD was about a 1.5 mm vessel. The diagonal ran in a ramus position and was about 1.5 to 2 mm. The OM was 1.5 to 2 mm. The PDA was about 1.5 mm. NARRATIVE REPORT: After informed consent was obtained, the patient was taken to the operating room and placed in supine position on the operating table. After the induction of general anesthesia, her saphenous vein which was visible for much of its course through the leg up into the proximal thigh was marked. She was placed in Trendelenburg and her left upper chest was prepped and draped in sterile fashion. A triple-lumen central line kit was used to place a left subclavian line by the Seldinger technique. All 3 ports easily aspirated and flushed. The line was secured with suture. The patient's torso, groins, and lower extremities were then prepped and draped in sterile fashion. Saphenous vein was harvested from the groin to the mid calf using a skin bridge technique. It was prepared for use as a graft and the harvest sites were closed in layers, the subcutaneous and subcuticular Vicryl. A median sternotomy was performed, and the left internal mammary artery was harvested as a skeletonized in-situ graft through an extrapleural exposure, taking the mobilization from the level of the xiphoid up to just beyond the level of the subclavian vein. Side branches were controlled with the use of small hemoclips. The patient was heparinized. The mammary was ligated and divided distally. Papaverine solution was instilled intraluminally resulting in good dilatation of the mammary. The mammary bed was inspected for hemostasis. The NOMAN retractor was replaced with a Yañez retractor. The pericardium was opened and marsupialized. The aorta was palpated and it was soft. A double concentric pursestring of 2-0 Ethibond was placed in ascending aorta just beyond the pericardial reflection. A single pursestring was placed in the right atrial appendage. Aortic and venous cannulae were inserted and secured by their pursestrings. Cardiopulmonary bypass was instituted and the patient was systemically cooled. The heart was examined and the vessels to be bypassed were identified. The hilar reflections of the pleura were mobilized and a longitudinal slit was made in the pericardium anterior to the left phrenic nerve through which the mammary could be passed. An aortic cross-clamp was applied and cardioplegia was administered through an aortic root needle. When arrest had been achieved, attention was turned to the obtuse marginal. It was exposed and opened with a Rincon blade and Argyle scissors. Reverse greater saphenous vein was then anastomosed to it end-to-side with running 6-0 Prolene suture and the anastomosis was tested by flushing cold cardioplegia down the graft. The first diagonal where it ran in the ramus position and the proximal PDA was then each open and grafted in a similar fashion in turn. The LAD was then opened where it emerged on the epicardial surface distally. The mammary was introduced into the pericardium and anastomosed there with running 7-0 Prolene and tacked to the epicardium. The aortic cross-clamp was replaced with a partial occluding clamp and aortotomy was made in the ascending aorta with a scalpel and punch incorporating the root needle site into the most proximal aortotomy. The PDA graft was then anastomosed to that proximal aortotomy. The diagonal and OM grafts were anastomosed to the middle and distal aortotomies respectively. The partial occluding clamp was removed and the vein grafts were de-aired. The bulldogs were removed from them. The anastomoses were inspected for hemostasis. The posterior pericardial drain was brought out through a separate incision and secured with suture. Right atrial and right ventricular temporary epicardial pacing wires were placed. The patient was then easily from cardiopulmonary bypass. The aortic and venous cannulae were removed and they were pursestring secured. Hemostasis was achieved at the aortic cannulation site by first over-sewing the pursestring of 4-0 Prolene and then using a vein pledgeted 4-0 Prolene mattress suture to complete hemostasis. The proximal anastomoses were marked with small hemoclips. When hemostasis was adequate, an anterior mediastinal drain was placed. Complete closure of the pericardium was not feasible. The mediastinal fat was tacked together to cover up the aorta and proximal portions of the vein grafts and the inferior medial aspects of the pericardium were loosely tacked back together. The cut surfaces of the sternum were treated with platelet rich GPS and vancomycin paste. The sternum was then reapproximated with #7 stainless steel wires. The soft tissues were irrigated and treated with platelet poor GPS. The fascia was closed over the wires with #1 Vicryl. Subcutaneous tissue was reapproximated with 2-0 Vicryl and the skin was closed with 3-0 Vicryl subcuticular stitch. The wounds were dressed and the patient was taken to the intensive care unit in stable condition. Job ID: [id number]
[2019-08-01] MEDS: Fentanyl 100 MCG/2 ML VIAL SLOW IVP PRN ×2 (01:26→08:06)
[2019-08-01] MEDS: Sodium Chloride 0.9% 1,000 ML IV SCH ×2 (03:20→16:40)
[2019-08-01 04:02] LABS: #Monocytes 0.7 thou/uL (0.11-0.59); #Neutrophils 6.5 thou/uL (1.40-6.50); %Eosinophils 0.2 % (0.0-10.0); %Lymphocytes 12.2 % (21.0-51.0); %Monocytes 8.7 % (0.0-10.0); %Neutrophils 78.9 % (42.0-75.0); Hemoglobin 8.8 g/dL (12.0-16.0); Mean Corpuscular HGB CONC 35.3 g/dL (32.0-36.0); Mean Corpuscular Hemoglobin 40.8 pg (27.0-31.0); Mean Platelet Volume 7.3 fL (7.4-10.4); Platelet Count 164 thou/uL (130-400); RBC Distribution Width 15.2 % (11.5-14.5); Red Blood Cell (RBC) Count 2.16 mill/uL (4.20-5.40); White Blood Cell (WBC) Count 8.2 thou/uL (4.8-10.8)
[2019-08-01 04:23] LABS: Anion Gap 14 mmol/L (10-20); BUN (Urea Nitrogen) 21 mg/dL (9.8-20.1); Calc. Creatinine Clearance 36 mL/min (70-130); Calcium 8.4 mg/dL (7.8-10.44); Carbon Dioxide 18 mmol/L (23-31); Chloride 116 mmol/L (98-107); Estimated GFR-MDRD 43; Glucose 139 mg/dL (83-110); Potassium 4.3 mmol/L (3.5-5.1); Sodium 144 mmol/L (136-145)
[2019-08-01] MEDS: Famotidine/PF 20 mg/2ml Vial SLOW IVP SCH (08:09)
[2019-08-01 08:15] LABS: Actual Bicarbonate (HCO3a) 18.5 mEq/L (22-28); Base Excess (BEa) -5.7 mEq/L (-2.0 to +3.0); CO2 Tension 30.8 mmHg (35.0-45.0); Calcium, Ionized 1.11 mmol/L (1.12-1.30); Carboxyhemoglobin (COHb) 1.2 gm% (0.0-3.0); Hemoglobin (Hb) 8.2 g/dL (12.0-16.0); O2 Tension (PaO2) 93.1 mmHg (> 70.0); Potassium - ABG Lab 4.02 mmol/L (3.70-5.30)
[2019-08-01 08:16] LABS: Puncture Site LINE
--- NOTE | 2019-08-01 08:23 | RAD ---
EXAM: CHEST ONE VIEW HISTORY: Post open heart surgery. Follow-up evaluation. COMPARISON: 07/31/2019 FINDINGS: Endotracheal tube, left subclavian central venous catheter, and mediastinal drains remain in place an d unchanged in position. Median sternotomy wires and postsurgical changes related to CABG are again noted. Cardiac silhouette is stable in size. The pulmonary vasculature is within normal limits. Again noted is small left pleural effusion with atelectasis at the left lung base. The right lung remains clear. The previously seen tiny left apical pneumothorax is less well delineated on the curre nt exam. No other interval change. IMPRESSION: 1. Postsurgical changes related to CABG with lines and tubes stable in position. 2. Pleural and parenchymal changes are again seen at the left lung base related to left pleural effus ion and probable atelectasis. 3. Previously seen tiny left apical pneumothorax is less well delineated on the current exam.
[2019-08-01] MEDS: Ondansetron PF 4 MG/2 ML Vial IVP PRN (13:14)
[2019-08-01] MEDS ORDERED: Insulin Glargine 8 UNITS in Pre-Filled Syringe 1 EACH SC SCH (13:45)
[2019-08-01] MEDS: Insulin Regular 300 UNITS/3 ML VIAL SC PRN (17:02)
[2019-08-01] MEDS: HYDROcodone/Acetaminophen 5/325 mg Tablet PO PRN (17:29)
--- NOTE | 2019-08-01 19:06 | PDOC.CPN ---
- Subjective Date: 08/01/19 Time: 19:05 Interval history: She was extuibated this morning. SHe is currently sleepy as she just received pain meds. No new issues. - Review of Systems General: denies: fever/chills, weight/appetite/sleep changes, night sweats, fatigue Respiratory: denies: cough, congestion, shortness of breath, exercise intolerance Cardiovascular: reports: chest pain. denies: palpitation, edema, paroxysmal nocturnal dyspnea, orthopnea Gastrointestinal: denies: nausea, vomiting, diarrhea, constipation, abd pain, GI bleeding Musculoskeletal: reports: pain. denies: tenderness, stiffness, swelling, arthritis/arthralgias Neurological: denies: numbness, syncope, seizure, weakness - Objective Allergies/Adverse Reactions: Allergies Allergy/AdvReac Type Severity Reaction Status Date / Time Penicillins Allergy Severe THROAT Verified 07/28/19 15:38 SWELLING Visit Medications: Current Medications Acetaminophen (Tylenol) 650 mg PO Q6H PRN PRN Reason: Headache/Fever Or Mild Pain Hydrocodone Bitart/Acetaminophen ([place] 5/325) 1 tab PO Q4H PRN PRN Reason: Moderate Pain (4-6) Last Admin: 08/01/19 17:29 Dose: 1 tab Hydrocodone Bitart/Acetaminophen ([place] 5/325) 2 tab PO Q4H PRN PRN Reason: Severe Pain (7-10) Last Admin: 08/01/19 13:14 Dose: 2 tab Al Hydroxide/Mg Hydroxide (Maalox) 30 ml PO Q4H PRN PRN Reason: Indigestion Albuterol/Ipratropium (Duoneb) 3 ml NEB Q6H PRN PRN Reason: SHORTNESS OF BREATH Bisacodyl (Dulcolax) 10 mg PO Q12H PRN PRN Reason: Constipation Bisacodyl (Dulcolax) 10 mg [place] Q12H PRN PRN Reason: Constipation Dextrose/Water (Dextrose 50%) 25 gm SLOW IVP PRN PRN PRN Reason: PER HYPOGLYCEMIC PROTOCOL Famotidine (Pepcid) 20 mg SLOW IVP DAILY SEAN Last Admin: 08/01/19 08:09 Dose: 20 mg Fentanyl (Sublimaze) 25 mcg SLOW IVP Q2H PRN PRN Reason: Moderate Pain (4-6) Stop: 08/02/19 08:38 Last Admin: 08/01/19 08:06 Dose: 25 mcg Fentanyl (Sublimaze) 50 mcg SLOW IVP Q2H PRN PRN Reason: Severe Pain (7-10) Stop: 08/02/19 08:38 Glucagon (Glucagon) 1 mg SC PRN PRN PRN Reason: PER HYPOGLYCEMIC PROTOCOL Guaifenesin/Dextromethorphan (Robitussin Dm) 15 ml PO Q4H PRN PRN Reason: Cough Hydralazine HCl (Apresoline) 10 mg SLOW IVP Q6H PRN PRN Reason: To Maintain SBP< 140mmHG Norepinephrine Bitartrate (Levophed) 250 mls @ 0 mls/hr IVPB PRN PRN; Protocol PRN Reason: To maintain SBP > 90 mmHG Last Admin: 07/31/19 18:15 Dose: 250 mls Nicardipine HCl 25 mg/ Sodium (Chloride) 260 mls @ 0 mls/hr IVPB INF PRN; Protocol PRN Reason: To Maintain SBP< 140mmHG Nitroglycerin/Dextrose (Nitroglycerin 50 Mg/250 Ml Bot) 250 mls @ 0 mls/hr IVPB PRN PRN; Protocol PRN Reason: To Maintain SBP< 140mmHG Insulin Human Regular 100 (units/ Sodium Chloride) 101 mls @ 0 mls/hr IVPB INF SEAN; Protocol Last Admin: 07/31/19 16:15 Dose: 101 mls Dextrose/Water (D5w) 1,000 mls @ 0 mls/hr IV INF PRN PRN Reason: PRN HYPOGLYCEMIC PROTOCOL Insulin Human Regular (Humulin R) 0 units SC Q4H PRN; Protocol PRN Reason: POST OP SLIDING SCALE Last Admin: 08/01/19 17:02 Dose: 4 unit Ondansetron HCl (Zofran) 4 mg IVP Q6H PRN PRN Reason: Nausea/Vomiting Last Admin: 08/01/19 13:14 Dose: 4 mg Potassium Chloride (Kcl) 20 meq IVPB PRN PRN PRN Reason: K level </= 4.0 Promethazine HCl (Phenergan) 6.25 mg IM Q4H PRN PRN Reason: Nausea/Vomiting Vital Signs & Weight: Vital Signs Temp Pulse Resp BP Pulse Ox 08/01/19 16:00 97.9 F 08/01/19 12:00 99.0 F 100 08/01/19 08:00 99.3 F 22 H 08/01/19 07:35 99 08/01/19 07:34 83 92/58 L Weight 136 lb 7.458 oz - Physical Exam General: appears well HEENT: mucus membranes moist Neck: supple neck Cardiac: regular rate and rhythm Lungs: clear to auscultation Neuro: grossly intact Extremities: no edema Skin: clear Musculoskeletal: normal range of motion - Labs Result Diagrams: 08/01/19 03:25 08/01/19 03:25 - Telemetry Sinus rhythms and dysrhythmias: sinus rhythm - Assessment/Plan Assessment/Plan: 1. Severe multivessel CAD 2. S/P CABG x 4 3. HIV with undetectable CD4 count PLAN: - ASA/Statin for life. - BB and ACEI once BP allows currently borderline low. She was weaned off levophed this morning. - Increase PT as tolerated.
[2019-08-02] MEDS ORDERED: Diltiazem HCl 125 MG, Admixture Fee 1 EACH in Sodium Chloride 0.9% 100 ML IVPB SCH (02:30)
[2019-08-02 03:45] LABS: Anion Gap 10 mmol/L (10-20); BUN (Urea Nitrogen) 23 mg/dL (9.8-20.1); Calc. Creatinine Clearance 36 mL/min (70-130); Calcium 8.7 mg/dL (7.8-10.44); Carbon Dioxide 21 mmol/L (23-31); Chloride 113 mmol/L (98-107); Estimated GFR-MDRD 42; Glucose 151 mg/dL (83-110); Potassium 4.1 mmol/L (3.5-5.1); Sodium 140 mmol/L (136-145)
[2019-08-02 04:16] LABS: #Lymphocytes 1.3 thou/uL (1.20-3.40); #Monocytes 0.6 thou/uL (0.11-0.59); #Neutrophils 6.3 thou/uL (1.40-6.50); %Eosinophils 0.3 % (0.0-10.0); %Lymphocytes 15.7 % (21.0-51.0); %Monocytes 7.1 % (0.0-10.0); %Neutrophils 76.9 % (42.0-75.0); Anisocytosis SLIGHT = 6-15 cells (100X) (0-5/hpf); Hemoglobin 7.3 g/dL (12.0-16.0); MDiff Complete? YES; Mean Corpuscular HGB CONC 35.2 g/dL (32.0-36.0); Mean Corpuscular Hemoglobin 41.2 pg (27.0-31.0); Mean Platelet Volume 7.3 fL (7.4-10.4); Platelet Count 112 thou/uL (130-400); Platelet Morphology Comment Appears Decreased; RBC Distribution Width 14.7 % (11.5-14.5); Red Blood Cell (RBC) Count 1.77 mill/uL (4.20-5.40); White Blood Cell (WBC) Count 8.2 thou/uL (4.8-10.8)
[2019-08-02] MEDS: Insulin Regular 300 UNITS/3 ML VIAL SC PRN (06:00)
[2019-08-02] MEDS: HYDROcodone/Acetaminophen 5/325 mg Tablet PO PRN (08:29)
--- NOTE | 2019-08-02 08:43 | RAD ---
PORTABLE CHEST: HISTORY: Respiratory distress. COMPARISON: Prior day's study. FINDINGS: Endotracheal tube has been removed. Left subclavian line is unchanged. Increased density in the lef t base is similar to the prior exam. IMPRESSION: Interval removal of the endotracheal tube; otherwise, stable exam. POS: TPC
[2019-08-02] MEDS ORDERED: Zolpidem Tartrate 5 MG TAB PO PRN (09:22)
[2019-08-02] MEDS ORDERED: Nitroglycerin 0.4 MG TAB (25 Tab Bottle) SL PRN (09:22)
[2019-08-02] MEDS ORDERED: Bisacodyl 5 MG TAB PO PRN (09:22)
[2019-08-02] MEDS ORDERED: Mineral Oil ENEMA PR PRN (09:22)
[2019-08-02] MEDS ORDERED: Mag-Al 1200 mg/1200 mg/30 ML UDCUP PO PRN (09:22)
[2019-08-02] MEDS ORDERED: Artificial Tears 18 DROP/0.9 ML EA EYE PRN (09:22)
[2019-08-02] MEDS ORDERED: Guaifenesin DM 100-10/5 ML UDCUP PO PRN (09:22)
[2019-08-02] MEDS ORDERED: diphenhydrAMINE 25 MG CAP PO PRN (09:22)
[2019-08-02] MEDS ORDERED: Bisacodyl 10 MG SUPP PR PRN (09:22)
[2019-08-02] MEDS: Metoprolol Tartrate 25 MG TAB PO SCH ×2 (11:12→19:32)
[2019-08-02] MEDS ORDERED: Amiodarone 200 MG TAB PO SCH (11:30)
[2019-08-02] MEDS: Famotidine/PF 20 mg/2ml Vial SLOW IVP SCH (12:37)
[2019-08-02] MEDS ORDERED: Furosemide 40 MG/4 ML VIAL SLOW IVP SCH (14:00)
--- NOTE | 2019-08-02 17:47 | PDOC.CPN ---
- Subjective Date: 08/02/19 Time: 17:45 Interval history: She is doing well. Pain is well controlled. No BM's but passing gas. - Review of Systems General: denies: fever/chills, weight/appetite/sleep changes, night sweats, fatigue Respiratory: denies: cough, congestion, shortness of breath, exercise intolerance Cardiovascular: denies: chest pain, palpitation, edema, paroxysmal nocturnal dyspnea, orthopnea Gastrointestinal: denies: nausea, vomiting, diarrhea, constipation, abd pain, GI bleeding Musculoskeletal: denies: pain, tenderness, stiffness, swelling, arthritis/ arthralgias Neurological: denies: numbness, syncope, seizure, weakness - Objective Allergies/Adverse Reactions: Allergies Allergy/AdvReac Type Severity Reaction Status Date / Time Penicillins Allergy Severe THROAT Verified 07/28/19 15:38 SWELLING Visit Medications: Current Medications Hydrocodone Bitart/Acetaminophen ([place] 5/325) 1 tab PO Q4H PRN PRN Reason: Moderate Pain (4-6) Last Admin: 08/02/19 08:29 Dose: 1 tab Hydrocodone Bitart/Acetaminophen ([place] 5/325) 2 tab PO Q4H PRN PRN Reason: Severe Pain (7-10) Last Admin: 08/01/19 13:14 Dose: 2 tab Al Hydroxide/Mg Hydroxide (Maalox) 30 ml PO Q4H PRN PRN Reason: Indigestion Albuterol/Ipratropium (Duoneb) 3 ml NEB Q6H PRN PRN Reason: SHORTNESS OF BREATH Amiodarone HCl (Cordarone) 400 mg PO BID [facility] Artificial Tears (Tears Naturale) 1 drop EA EYE PRN PRN PRN Reason: Dry Eyes Aspirin (Ecotrin) 81 mg PO DAILY [facility] Bisacodyl (Dulcolax) 10 mg PO Q12H PRN PRN Reason: Constipation Bisacodyl (Dulcolax) 10 mg [place] Q12H PRN PRN Reason: Constipation Diphenhydramine HCl (Benadryl) 25 mg PO Q6H PRN PRN Reason: Itching & Insomnia or Abhi Mitch Guaifenesin/Dextromethorphan (Robitussin Dm) 15 ml PO Q4H PRN PRN Reason: Cough Metoprolol Tartrate (Lopressor) 12.5 mg PO BID [facility] Last Admin: 08/02/19 11:12 Dose: 12.5 mg Mineral Oil (Fleet Mineral Oil) 133 ml MA DAILYPRN PRN PRN Reason: Constipation Nitroglycerin (Nitrostat) 0.4 mg SL Q5MIN PRN PRN Reason: Chest Pain Ondansetron HCl (Zofran) 4 mg IVP Q6H PRN PRN Reason: Nausea/Vomiting Last Admin: 08/01/19 13:14 Dose: 4 mg Zolpidem Tartrate (Ambien) 5 mg PO HSPRN PRN PRN Reason: Insomnia Vital Signs & Weight: Vital Signs Temp Pulse Pulse Pulse Resp BP BP 08/02/19 13:35 92 90 130/66 106/66 08/02/19 12:00 98.1 F 75 29 H 08/02/19 11:26 98.1 F 19 08/02/19 09:10 80 87 125/56 L 123/53 L 08/02/19 09:02 97.9 F 28 H 08/02/19 08:00 08/02/19 07:30 97.9 F 23 H 08/02/19 07:00 97.9 F BP Pulse Ox Pulse Ox Pulse Ox 08/02/19 13:35 89 L 95 08/02/19 12:00 123/71 98 08/02/19 11:26 08/02/19 09:10 96 93 L 08/02/19 09:02 95 08/02/19 08:00 94 L 08/02/19 07:30 95 08/02/19 07:00 Weight 131 lb 13.383 oz - Physical Exam General: alert & oriented x3 HEENT: mucus membranes moist Neck: supple neck Cardiac: regular rate and rhythm Lungs: normal breath sounds Neuro: grossly intact Abdomen: active bowel sounds Extremities: no edema Skin: clear Musculoskeletal: no pain - Labs Result Diagrams: 08/02/19 02:55 08/02/19 02:55 - Telemetry Supraventricular conduction: atrial fibrillation - Assessment/Plan Assessment/Plan: 1. Severe multivessel CAD 2. S/P CABG x 4 3. HIV with undetectable CD4 count 4. Post op afib. PLAN: - ASA/Statin for life. - Continue amiodarone for afib, will switch to a drip to make her convert to sinus. - Increase PT as tolerated. - Critical Care Time Critical care time (mins): 30
[2019-08-02] MEDS: Amiodarone 200 MG TAB PO SCH (19:32)
[2019-08-03 04:41] LABS: #Eosinphils 0.1 thou/uL (0.0-0.7); #Lymphocytes 1.6 thou/uL (1.20-3.40); #Monocytes 0.5 thou/uL (0.11-0.59); #Neutrophils 6.1 thou/uL (1.40-6.50); %Basophils 0.2 % (0.0-1.0); %Eosinophils 0.8 % (0.0-10.0); %Lymphocytes 19.3 % (21.0-51.0); %Neutrophils 73.7 % (42.0-75.0); Anisocytosis SLIGHT = 6-15 cells (100X) (0-5/hpf); Hemoglobin 9.3 g/dL (12.0-16.0); MDiff Complete? YES; Macrocytosis SLIGHT = 6-15 cells (100X) (0-5/hpf); Mean Corpuscular HGB CONC 34.2 g/dL (32.0-36.0); Mean Corpuscular Hemoglobin 35.7 pg (27.0-31.0); Mean Platelet Volume 7.6 fL (7.4-10.4); Platelet Count 128 thou/uL (130-400); RBC Distribution Width 22.7 % (11.5-14.5); Red Blood Cell (RBC) Count 2.61 mill/uL (4.20-5.40); White Blood Cell (WBC) Count 8.3 thou/uL (4.8-10.8)
[2019-08-03 04:43] LABS: Anion Gap 11 mmol/L (10-20); BUN (Urea Nitrogen) 26 mg/dL (9.8-20.1); Calc. Creatinine Clearance 39 mL/min (70-130); Calcium 8.8 mg/dL (7.8-10.44); Carbon Dioxide 22 mmol/L (23-31); Chloride 109 mmol/L (98-107); Estimated GFR-MDRD 47; Glucose 120 mg/dL (83-110); Potassium 3.8 mmol/L (3.5-5.1); Sodium 138 mmol/L (136-145)
--- NOTE | 2019-08-03 07:37 | RAD ---
Chest one view HISTORY: Surgery. Follow-up. COMPARISON: 08/02/2019. FINDINGS: Cardiac silhouette is magnified by projection. Pulmonary vasculature remains upper limits o f normal. Left pleural fluid and basilar atelectasis similar in appearance to the previous exam. Mediastinum is midline with postoperative changes and a left subclavian central venous catheter uncha nged. Patient is slightly rotated leftward. Lung markings extend beyond the skinfold over the right chest that mimics a pneumothorax. IMPRESSION: Stable postoperative appearance of the chest.
[2019-08-03] MEDS: Furosemide 40 MG TAB PO SCH ×2 (08:39→14:28)
[2019-08-03] MEDS: Potassium Chloride 20 MEQ TAB PO SCH ×2 (08:40→17:28)
[2019-08-03] MEDS: Metoprolol Tartrate 25 MG TAB PO SCH ×2 (08:40→20:12)
[2019-08-03] MEDS: Aspirin 81 mg Enteric Coated Tablet PO SCH (08:40)
[2019-08-03] MEDS ORDERED: Furosemide 20 MG TAB PO SCH (09:00)
[2019-08-03] MEDS: Amiodarone 200 MG TAB PO SCH (10:06)
[2019-08-03] MEDS: Ondansetron PF 4 MG/2 ML Vial IVP PRN (13:35)
--- NOTE | 2019-08-03 17:31 | PDOC.CPN ---
- Subjective Date: 08/03/19 Time: 17:29 Interval history: She had a BM today, had diarrhea and she is upset about this. She has been working with PT and doing well. - Review of Systems General: denies: fever/chills, weight/appetite/sleep changes, night sweats, fatigue Respiratory: denies: cough, congestion, shortness of breath, exercise intolerance Cardiovascular: denies: chest pain, palpitation, edema, paroxysmal nocturnal dyspnea, orthopnea Gastrointestinal: denies: nausea, vomiting, diarrhea, constipation, abd pain, GI bleeding Musculoskeletal: denies: pain, tenderness, stiffness, swelling, arthritis/ arthralgias Neurological: denies: numbness, syncope, seizure, weakness - Objective Allergies/Adverse Reactions: Allergies Allergy/AdvReac Type Severity Reaction Status Date / Time Penicillins Allergy Severe THROAT Verified 07/28/19 15:38 SWELLING Visit Medications: Current Medications Hydrocodone Bitart/Acetaminophen ([place] 5/325) 1 tab PO Q4H PRN PRN Reason: Moderate Pain (4-6) Last Admin: 08/02/19 08:29 Dose: 1 tab Hydrocodone Bitart/Acetaminophen ([place] 5/325) 2 tab PO Q4H PRN PRN Reason: Severe Pain (7-10) Last Admin: 08/01/19 13:14 Dose: 2 tab Al Hydroxide/Mg Hydroxide (Maalox) 30 ml PO Q4H PRN PRN Reason: Indigestion Albuterol/Ipratropium (Duoneb) 3 ml NEB Q6H PRN PRN Reason: SHORTNESS OF BREATH Artificial Tears (Tears Naturale) 1 drop EA EYE PRN PRN PRN Reason: Dry Eyes Aspirin (Ecotrin) 81 mg PO DAILY [facility] Last Admin: 08/03/19 08:40 Dose: 81 mg Bisacodyl (Dulcolax) 10 mg PO Q12H PRN PRN Reason: Constipation Bisacodyl (Dulcolax) 10 mg [place] Q12H PRN PRN Reason: Constipation Diphenhydramine HCl (Benadryl) 25 mg PO Q6H PRN PRN Reason: Itching & Insomnia or Abhi Mitch Furosemide (Lasix) 40 mg PO 0900,1400 [facility] Stop: 08/04/19 14:01 Last Admin: 08/03/19 14:28 Dose: 40 mg Guaifenesin/Dextromethorphan (Robitussin Dm) 15 ml PO Q4H PRN PRN Reason: Cough Lamivudine (Epivir) 150 mg PO BID [facility] Metoprolol Tartrate (Lopressor) 25 mg PO BID [facility] Last Admin: 08/03/19 08:40 Dose: 25 mg Mineral Oil (Fleet Mineral Oil) 133 ml [place] DAILYPRN PRN PRN Reason: Constipation Nitroglycerin (Nitrostat) 0.4 mg SL Q5MIN PRN PRN Reason: Chest Pain Ondansetron HCl (Zofran) 4 mg IVP Q6H PRN PRN Reason: Nausea/Vomiting Last Admin: 08/03/19 13:35 Dose: 4 mg Crixivan (Indinavir) (800 Mg) 1 each PO TID [facility] Potassium Chloride (K-Dur) 40 meq PO BID- [facility] Stop: 08/04/19 17:01 Last Admin: 08/03/19 08:40 Dose: 40 meq Zidovudine (Retrovir) 300 mg PO BID [facility] Zolpidem Tartrate (Ambien) 5 mg PO HSPRN PRN PRN Reason: Insomnia Vital Signs & Weight: Vital Signs Temp Pulse Pulse BP BP Pulse Ox Pulse Ox 08/03/19 14:00 98.6 F 08/03/19 12:00 97.9 F 08/03/19 10:49 66 66 131/69 125/71 100 08/03/19 08:00 97.7 F 100 Pulse Ox 08/03/19 14:00 08/03/19 12:00 08/03/19 10:49 97 08/03/19 08:00 Weight 132 lb 11.492 oz - Physical Exam General: alert & oriented x3 HEENT: mucus membranes moist Neck: supple neck Cardiac: regular rate and rhythm Lungs: clear to auscultation Neuro: grossly intact Abdomen: active bowel sounds Extremities: no edema Skin: clear Musculoskeletal: no pain - Labs Result Diagrams: 08/03/19 04:00 08/03/19 04:00 - Telemetry Sinus rhythms and dysrhythmias: sinus rhythm - Assessment/Plan Assessment/Plan: 1. Severe multivessel CAD 2. S/P CABG x 4 3. HIV with undetectable CD4 count 4. Post op afib. PLAN: - ASA/Statin for life. - had to stop amiodarone as it has major interactions with her anti retrovirals. Currently she remains in sinus. - Increase PT as tolerated. - Will up titrate BB as much as possible for post op afib.
[2019-08-03] MEDS ORDERED: Loperamide HCl 1 MG/7.5 ML UDCUP PO PRN (20:38)
[2019-08-03] MEDS ORDERED: Loperamide HCl 2 MG CAP PO SCH (21:00)
[2019-08-04] MEDS ORDERED: metroNIDAZOLE 500 MG TAB PO SCH ×2 (00:30→06:00)
[2019-08-04] MEDS ORDERED: Vancomycin HCl 25 MG/ML Oral PO SCH (00:45)
[2019-08-04 04:37] LABS: #Eosinphils 0.1 thou/uL (0.0-0.7); #Lymphocytes 1.2 thou/uL (1.20-3.40); #Monocytes 0.4 thou/uL (0.11-0.59); #Neutrophils 2.9 thou/uL (1.40-6.50); %Eosinophils 1.9 % (0.0-10.0); %Lymphocytes 26.6 % (21.0-51.0); %Monocytes 9.4 % (0.0-10.0); Hemoglobin 9.6 g/dL (12.0-16.0); Mean Corpuscular Hemoglobin 34.6 pg (27.0-31.0); Platelet Count 184 thou/uL (130-400); Red Blood Cell (RBC) Count 2.78 mill/uL (4.20-5.40); White Blood Cell (WBC) Count 4.6 thou/uL (4.8-10.8)
[2019-08-04 04:51] LABS: Anion Gap 12 mmol/L (10-20); BUN (Urea Nitrogen) 30 mg/dL (9.8-20.1); Calc. Creatinine Clearance 39 mL/min (70-130); Calcium 8.9 mg/dL (7.8-10.44); Carbon Dioxide 25 mmol/L (23-31); Chloride 108 mmol/L (98-107); Estimated GFR-MDRD 47; Glucose 106 mg/dL (83-110); Potassium 3.4 mmol/L (3.5-5.1); Sodium 142 mmol/L (136-145)
[2019-08-04] MEDS: Vancomycin HCl 25 MG/ML Oral PO SCH ×4 (05:51→23:44)
[2019-08-04] MEDS ORDERED: [UNRECOGNIZED DRUG - OTHER] PO SCH (09:00)
[2019-08-04] MEDS: Aspirin 81 mg Enteric Coated Tablet PO SCH (09:10)
[2019-08-04] MEDS: Metoprolol Tartrate 25 MG TAB PO SCH ×2 (09:10→20:31)
[2019-08-04] MEDS: Potassium Chloride 20 MEQ TAB PO SCH ×2 (09:10→18:15)
[2019-08-04] MEDS: CRIXIVAN PO SCH ×3 (09:33→20:30)
--- NOTE | 2019-08-04 10:08 | RAD ---
PORTABLE CHEST: Date: 08/04/2019 PROVIDED CLINICAL HISTORY: Post open heart. COMPARISON: 08/03/2019. FINDINGS: Significant interval change with respect to the prior examination is not apparent. IMPRESSION: As above. POS: OFF
[2019-08-04] MEDS: Sodium Chloride 0.9% 1,000 ML IV SCH ×2 (12:03→23:44)
[2019-08-04] MEDS ORDERED: CRIXIVAN PO SCH (15:00)
--- NOTE | 2019-08-04 15:50 | PDOC.CPN ---
- Subjective Date: 08/04/19 Time: 15:48 Interval history: She is doing better today. Her diarrhea sample tested positive for C-Diff and was started on abx for this and ID was consulted. She is working with PT but is still needing a lot more assistance and will need inpatient rehab on discharge. Her demeanor seems down and not optimistic about her recovery, she states she feels depressed. - Review of Systems General: denies: fever/chills, weight/appetite/sleep changes, night sweats, fatigue Respiratory: denies: cough, congestion, shortness of breath, exercise intolerance Cardiovascular: denies: chest pain, palpitation, edema, paroxysmal nocturnal dyspnea, orthopnea Gastrointestinal: reports: nausea, vomiting, diarrhea. denies: constipation, abd pain, GI bleeding Musculoskeletal: denies: pain, tenderness, stiffness, swelling, arthritis/ arthralgias Neurological: denies: numbness, syncope, seizure, weakness - Objective Allergies/Adverse Reactions: Allergies Allergy/AdvReac Type Severity Reaction Status Date / Time Penicillins Allergy Severe THROAT Verified 07/28/19 15:38 SWELLING Visit Medications: Current Medications Hydrocodone Bitart/Acetaminophen ([place] 5/325) 1 tab PO Q4H PRN PRN Reason: Moderate Pain (4-6) Last Admin: 08/02/19 08:29 Dose: 1 tab Hydrocodone Bitart/Acetaminophen ([place] 5/325) 2 tab PO Q4H PRN PRN Reason: Severe Pain (7-10) Last Admin: 08/01/19 13:14 Dose: 2 tab Al Hydroxide/Mg Hydroxide (Maalox) 30 ml PO Q4H PRN PRN Reason: Indigestion Albuterol/Ipratropium (Duoneb) 3 ml NEB Q6H PRN PRN Reason: SHORTNESS OF BREATH Artificial Tears (Tears Naturale) 1 drop EA EYE PRN PRN PRN Reason: Dry Eyes Aspirin (Ecotrin) 81 mg PO DAILY [facility] Last Admin: 08/04/19 09:10 Dose: 81 mg Bisacodyl (Dulcolax) 10 mg PO Q12H PRN PRN Reason: Constipation Bisacodyl (Dulcolax) 10 mg [place] Q12H PRN PRN Reason: Constipation Diphenhydramine HCl (Benadryl) 25 mg PO Q6H PRN PRN Reason: Itching & Insomnia or Abhi Mitch Guaifenesin/Dextromethorphan (Robitussin Dm) 15 ml PO Q4H PRN PRN Reason: Cough Sodium Chloride (Normal Saline 0.9%) 1,000 mls @ 75 mls/hr IV .[id number] [facility] Last Admin: 08/04/19 12:03 Dose: 1,000 mls Lamivudine (Epivir) 150 mg PO BID [facility] Last Admin: 08/04/19 09:31 Dose: 150 mg Loperamide HCl (Imodium) 1 mg PO Q4H PRN PRN Reason: Diarrhea/Loose Stools Metoprolol Tartrate (Lopressor) 25 mg PO BID [facility] Last Admin: 08/04/19 09:10 Dose: 25 mg Mineral Oil (Fleet Mineral Oil) 133 ml [place] DAILYPRN PRN PRN Reason: Constipation Nitroglycerin (Nitrostat) 0.4 mg SL Q5MIN PRN PRN Reason: Chest Pain Ondansetron HCl (Zofran) 4 mg IVP Q6H PRN PRN Reason: Nausea/Vomiting Last Admin: 08/03/19 13:35 Dose: 4 mg Crixivan (Indinavir) (400 Mg) 2 each PO TID [facility] Last Admin: 08/04/19 15:32 Dose: 2 each Potassium Chloride (K-Dur) 40 meq PO BID[facility] Stop: 08/04/19 17:01 Last Admin: 08/04/19 09:10 Dose: 40 meq Vancomycin HCl (First Vancomycin) 250 mg PO Q6HR [facility] Zidovudine (Retrovir) 300 mg PO BID [facility] Last Admin: 08/04/19 09:30 Dose: 300 mg Zolpidem Tartrate (Ambien) 5 mg PO HSPRN PRN PRN Reason: Insomnia Vital Signs & Weight: Vital Signs Temp Pulse Pulse BP BP Pulse Ox 08/04/19 11:00 97.8 F 08/04/19 09:42 65 67 121/71 128/66 08/04/19 08:00 97.3 F L 97 Weight 129 lb 6.581 oz - Physical Exam General: alert & oriented x3, other (Flat affect) HEENT: mucus membranes moist Neck: supple neck Cardiac: regular rate and rhythm Lungs: clear to auscultation Neuro: grossly intact Abdomen: active bowel sounds Extremities: no edema Skin: clear Musculoskeletal: no pain - Labs Result Diagrams: 08/04/19 04:16 08/04/19 04:16 - Telemetry Sinus rhythms and dysrhythmias: sinus rhythm - Assessment/Plan Assessment/Plan: 1. Severe multivessel CAD 2. S/P CABG x 4 3. HIV with undetectable CD4 count 4. Post op afib. 5. C-diff colitis 6. Depression PLAN: - ASA/Statin for life. - No amiodarone as it has major interactions with her anti retrovirals. Currently she remains in sinus on BB alone. - Increase PT as tolerated. - Will up titrate BB as much as possible for post op afib. - Will need inpatient rehab on discharge. - Appreciate Dr. Araceli jimenez. - After discussion with Pharmacy will start Lexapro. - Critical Care Time Critical care time (mins): 45
--- NOTE | 2019-08-04 18:15 | CON ---
DATE OF CONSULTATION: 08/04/2019 CONSULT REQUEST: C difficile colitis in the setting of HIV infection. HISTORY OF PRESENT ILLNESS: A 79-year-old, who has longstanding HIV infection for at least 20 years and has been on a regimen of Crixivan and zidovudine, which is a quite old regimen and is quite cumbersome, associated with some side effects. Obviously, she has been very adherent to this regimen and has been followed by her primary physician with reportedly suppressed viral load as recently as a few months ago. She does not recall her CD4 cell count, but has not had any opportunistic infections in the past, and has developed unstable angina symptoms and has had coronary artery bypass graft surgery. She is in the ICU in the postop period and has developed C difficile colitis. We were asked to assist with the management. She is lying on her left lateral decubitus. She is awake, follows commands. Does not appear in acute distress. Denies headaches. No respiratory symptoms. Still with some diarrhea. No abdominal cramps or pain. She still has an indwelling Pearce catheter. PAST MEDICAL HISTORY: Includes HIV infection, long-standing, on anti-retroviral therapy with excellent adherence to treatment; coronary artery disease with status post bypass for left main disease; laparoscopic cholecystectomy. FAMILY HISTORY: Noncontributory. SOCIAL HISTORY: Lives in [place]. 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 No smoking. No alcoholic beverage use. ALLERGIES: PENICILLIN. MEDICATIONS: 1. Crixivan. 2. Combivir. 3. Pravastatin. 4. Calcium. 5. Aspirin. 6. She is now also on vancomycin orally and some p.r.n. medications. PHYSICAL EXAMINATION: VITAL SIGNS: She has been afebrile. Other vitals not particularly remarkable. O2 saturation 99. SKIN: Peripheral IV access. Pearce catheter. No lymphadenopathy. HEENT: Ocular movements are normal. Oral cavity is unremarkable. NECK: Supple. LUNGS: Symmetric, clear breath sounds. HEART: Sternotomy site appears normal. No inflammatory changes or tenderness. S1 and S2 regular rate. ABDOMEN: Soft. Increased bowel sounds, but no tenderness. Slightly distended. : No bladder distention. EXTREMITIES: No joint inflammatory activity. Moves extremities equally. No edema. Pulses 1+ in dorsalis pedis. Plantar responses are flexor. No clonus. NEUROLOGIC: Cognitive function appears to be intact. LABORATORY STUDIES: White cell count was 4.7, went up to 8.2 and now is 4.6; hemoglobin 9.6; platelets 184; normal differential. Sodium 142; creatinine 1.1, baseline is 1.06; bilirubin 1.4; AST 23; ALT 17; alkaline phosphatase 74; albumin 4; globulin 3. Hepatitis C, B, and A are negative, serology. Imaging, we got a latest chest x-ray from this morning with no significant findings. We do not have any abdominal imaging study submitted. C diff positive for toxin and antigen. ASSESSMENT: 1. Longstanding human immunodeficiency virus infection with excellent adherence to anti-retroviral therapy and reported suppressed viral load as recently as a few months ago. Her current total lymphocyte count is 1.2, which would suggest a CD4 cell count less than 200. 2. Unstable coronary syndrome, status post coronary artery bypass graft surgery for left main disease with normal postop course except for Clostridium difficile colitis development. DISCUSSION: The patient will be treated with oral vancomycin, we will up the dose to 250 q.6. I think the case is mild to moderate and should be able to be handled with this treatment alone. She has about 20% chance of recurrence. In that case, then I would treat her with a full course and then prescribe vancomycin taper. Regarding her HIV infection, we will go ahead and reassess CD4 and viral load. Continue the current anti-retroviral therapy. Of note, her ART is an old ART regimen, quite cumbersome, and there are newer single dose regimens that would be much easier for her to take, and I will talk to her primary physician and see if he is willing to switch her to one of these new options. I do not think she would be willing to come to my clinic for treatment due to social reasons. If her CD4 is less than 200 she would require PJP prophylaxis and work up for OI additionally. Job ID: [id number] [facility] [place] DIVISIONSari
[2019-08-05] MEDS: Vancomycin HCl 25 MG/ML Oral PO SCH ×3 (05:21→17:00)
[2019-08-05 05:43] LABS: #Eosinphils 0.1 thou/uL (0.0-0.7); #Lymphocytes 1.1 thou/uL (1.20-3.40); #Monocytes 0.5 thou/uL (0.11-0.59); %Basophils 0.4 % (0.0-1.0); %Lymphocytes 23.2 % (21.0-51.0); %Monocytes 10.4 % (0.0-10.0); Anion Gap 13 mmol/L (10-20); BUN (Urea Nitrogen) 27 mg/dL (9.8-20.1); Band 3 % (5-11); Calc. Creatinine Clearance 35 mL/min (70-130); Calcium 8.7 mg/dL (7.8-10.44); Carbon Dioxide 20 mmol/L (23-31); Chloride 113 mmol/L (98-107); Elliptocytes SLIGHT = 2-5 cells (100X) (0-1/hpf); Eosinophils 1 % (0-10); Estimated GFR-MDRD 44; Glucose 105 mg/dL (83-110); Hemoglobin 10.3 g/dL (12.0-16.0); Lymphocytes 19 % (21-51); MDiff Complete? YES; Macrocytosis MODERATE=16-30 cells (100X) (0-5/hpf); Mean Corpuscular HGB CONC 34.7 g/dL (32.0-36.0); Mean Corpuscular Hemoglobin 37.6 pg (27.0-31.0); Mean Platelet Volume 6.8 fL (7.4-10.4); Monocytes 5 % (0-10); Neutrophil 72 % (42-75); Platelet Count 189 thou/uL (130-400); Platelet Morphology Comment Appears Adequate; Potassium 4.1 mmol/L (3.5-5.1); RBC Distribution Width 21.6 % (11.5-14.5); Red Blood Cell (RBC) Count 2.73 mill/uL (4.20-5.40); Sodium 142 mmol/L (136-145); White Blood Cell (WBC) Count 4.8 thou/uL (4.8-10.8)
--- NOTE | 2019-08-05 09:01 | PDOC.CPN ---
- Subjective Date: 08/05/19 Time: 08:40 Interval history: Ms. Fox is awake, eating breakfast. She is discouraged with frequent diarrhea, frustrates her. Feels like this limits her ability to ambulate, work with physical therapy. Denies N/V, cough. Complains of incisional pain with movement. No angina. No overnight events on telemetry. - Review of Systems General: denies: fever/chills, weight/appetite/sleep changes, night sweats, fatigue Respiratory: denies: cough, congestion, shortness of breath, exercise intolerance Cardiovascular: reports: chest pain (Incisional) Gastrointestinal: reports: diarrhea Musculoskeletal: denies: pain, tenderness, stiffness, swelling, arthritis/ arthralgias Neurological: denies: numbness, syncope, seizure, weakness - Objective Allergies/Adverse Reactions: Allergies Allergy/AdvReac Type Severity Reaction Status Date / Time Penicillins Allergy Severe THROAT Verified 07/28/19 15:38 SWELLING amiodarone Allergy Verified 08/05/19 17:41 Visit Medications: Current Medications Hydrocodone Bitart/Acetaminophen ([place] 5/325) 1 tab PO Q4H PRN PRN Reason: Moderate Pain (4-6) Last Admin: 08/02/19 08:29 Dose: 1 tab Hydrocodone Bitart/Acetaminophen ([place] 5/325) 2 tab PO Q4H PRN PRN Reason: Severe Pain (7-10) Last Admin: 08/01/19 13:14 Dose: 2 tab Al Hydroxide/Mg Hydroxide (Maalox) 30 ml PO Q4H PRN PRN Reason: Indigestion Albuterol/Ipratropium (Duoneb) 3 ml NEB Q6H PRN PRN Reason: SHORTNESS OF BREATH Artificial Tears (Tears Naturale) 1 drop EA EYE PRN PRN PRN Reason: Dry Eyes Aspirin (Ecotrin) 81 mg PO DAILY [facility] Last Admin: 08/04/19 09:10 Dose: 81 mg Bisacodyl (Dulcolax) 10 mg PO Q12H PRN PRN Reason: Constipation Bisacodyl (Dulcolax) 10 mg [place] Q12H PRN PRN Reason: Constipation Diphenhydramine HCl (Benadryl) 25 mg PO Q6H PRN PRN Reason: Itching & Insomnia or Abhi Mitch Guaifenesin/Dextromethorphan (Robitussin Dm) 15 ml PO Q4H PRN PRN Reason: Cough Lamivudine (Epivir) 150 mg PO BID [facility] Last Admin: 08/04/19 20:30 Dose: 150 mg Loperamide HCl (Imodium) 1 mg PO Q4H PRN PRN Reason: Diarrhea/Loose Stools Metoprolol Tartrate (Lopressor) 25 mg PO BID [facility] Last Admin: 08/04/19 20:31 Dose: 25 mg Mineral Oil (Fleet Mineral Oil) 133 ml [place] DAILYPRN PRN PRN Reason: Constipation Nitroglycerin (Nitrostat) 0.4 mg SL Q5MIN PRN PRN Reason: Chest Pain Ondansetron HCl (Zofran) 4 mg IVP Q6H PRN PRN Reason: Nausea/Vomiting Last Admin: 08/03/19 13:35 Dose: 4 mg Crixivan (Indinavir) (400 Mg) 2 each PO TID [facility] Last Admin: 08/04/19 20:30 Dose: 2 each Vancomycin HCl (First Vancomycin) 250 mg PO Q6HR [facility] Last Admin: 08/05/19 05:21 Dose: 250 mg Zidovudine (Retrovir) 300 mg PO BID [facility] Last Admin: 08/04/19 20:31 Dose: 300 mg Zolpidem Tartrate (Ambien) 5 mg PO HSPRN PRN PRN Reason: Insomnia Vital Signs & Weight: Vital Signs Temp Pulse Resp BP Pulse Ox 08/05/19 07:43 96.7 F L 69 18 129/62 95 08/05/19 03:42 98.1 F 75 14 133/69 93 L Weight 128 lb 4.8 oz - Quality Measures CV meds: Beta Jan: Yes, SRINI/ARB: No, Statin: Yes, ASA: Yes, Plavix/Effient/ Brilinta: No, Anticoagulant: No - Physical Exam General: alert & oriented x3, no apparent distress HEENT: mucus membranes moist, normocephaly Neck: no JVD/HJR, no bruit Cardiac: regular rate and rhythm, no murmur, S1/S2 Lungs: clear to auscultation, normal breath sounds, no wheeze, rales, rhonchi Abdomen: active bowel sounds, soft, non-tender Extremities: no edema - Labs Result Diagrams: 08/05/19 05:15 08/05/19 05:15 - Telemetry Sinus rhythms and dysrhythmias: sinus rhythm - Assessment/Plan Assessment/Plan: 1. Severe multivessel CAD 2. S/P CABG x 4-expected postoperative pain, no angina 3. HIV with undetectable CD4 count-followed by ID 4. Post op afib-maintaining SR 5. C-diff colitis 6. Depression-per Dr. Clarke's note 08/04/2019, okay to add, was verified with pharmacy PLAN: - ASA/Statin for life. Resume statin. - No amiodarone as it has major interactions with her anti retrovirals. Currently she remains in sinus on BB alone. - Encouraged ambulation, increase PT - Will up titrate BB as much as possible for post op afib. - Plan on inpatient rehab placement Will start low-dose Lexapro. Pt seen and examined. Doing weel from CV standpoint. On Abx for C Dif.
[2019-08-05] MEDS: Aspirin 81 mg Enteric Coated Tablet PO SCH (09:55)
[2019-08-05] MEDS: Metoprolol Tartrate 25 MG TAB PO SCH ×2 (09:55→20:34)
[2019-08-05] MEDS: CRIXIVAN PO SCH ×3 (09:55→20:34)
--- NOTE | 2019-08-05 10:55 | RAD ---
PORTABLE CHEST: HISTORY: Post CABG. COMPARISON: Prior day's study. FINDINGS: Increasing density over the left chest. This may just be related to differences in recumbency of the patient with layering of effusion. Left subclavian line is unchanged in position. IMPRESSION: Increasing opacification over the left lung base. This could represent layering of effusion related to differences in recumbency of the patient. Continued followup is recommended. POS: DANIELLA
[2019-08-05] MEDS ORDERED: Escitalopram Oxalate 10 mg Tablet PO SCH (16:00)
[2019-08-05 16:09] LABS: %CD4 (Helper/Inducer) 52.7 % (30.8-58.5); Absolute CD4 316 /uL (359-1519); Lymphocytes/Gated Cell Count 0.6 x10E3/uL (0.7-3.1); Total Lymphocyte 13 % (Not Estab.); WBC Total Count 4.8 x10E3/uL (3.4-10.8)
[2019-08-05] MEDS: Ondansetron PF 4 MG/2 ML Vial IVP PRN (18:25)
[2019-08-05] MEDS: Atorvastatin Calcium 10 MG TAB PO SCH (20:33)
[2019-08-06] MEDS: Vancomycin HCl 25 MG/ML Oral PO SCH ×4 (00:52→18:15)
[2019-08-06 05:15] LABS: #Eosinphils 0.1 thou/uL (0.0-0.7); #Lymphocytes 1.3 thou/uL (1.20-3.40); #Monocytes 0.7 thou/uL (0.11-0.59); #Neutrophils 3.9 thou/uL (1.40-6.50); %Basophils 0.3 % (0.0-1.0); %Eosinophils 2.1 % (0.0-10.0); %Neutrophils 64.7 % (42.0-75.0); Hemoglobin 9.3 g/dL (12.0-16.0); Mean Corpuscular HGB CONC 34.9 g/dL (32.0-36.0); Mean Corpuscular Hemoglobin 37.5 pg (27.0-31.0); Mean Platelet Volume 6.9 fL (7.4-10.4); Platelet Count 231 thou/uL (130-400); RBC Distribution Width 21.1 % (11.5-14.5); Red Blood Cell (RBC) Count 2.49 mill/uL (4.20-5.40)
[2019-08-06 05:35] LABS: Anion Gap 11 mmol/L (10-20); BUN (Urea Nitrogen) 23 mg/dL (9.8-20.1); Calc. Creatinine Clearance 32 mL/min (70-130); Calcium 8.9 mg/dL (7.8-10.44); Carbon Dioxide 21 mmol/L (23-31); Chloride 112 mmol/L (98-107); Estimated GFR-MDRD 40; Glucose 104 mg/dL (83-110); Potassium 3.4 mmol/L (3.5-5.1); Sodium 141 mmol/L (136-145)
[2019-08-06] MEDS ORDERED: Escitalopram Oxalate 10 mg Tablet PO SCH (09:00)
[2019-08-06] MEDS: Metoprolol Tartrate 25 MG TAB PO SCH ×2 (09:39→20:47)
[2019-08-06] MEDS: Aspirin 81 mg Enteric Coated Tablet PO SCH (09:39)
[2019-08-06] MEDS: Escitalopram Oxalate 10 mg Tablet PO SCH (09:39)
[2019-08-06] MEDS: CRIXIVAN PO SCH ×3 (09:41→20:47)
--- NOTE | 2019-08-06 10:44 | PDOC.CPN ---
- Subjective Date: 08/06/19 Time: 10:42 Interval history: Only c/o weakness/GI upset from CDiff - Review of Systems General: reports: fatigue Respiratory: denies: cough, congestion, shortness of breath, exercise intolerance Cardiovascular: denies: chest pain, palpitation, edema, paroxysmal nocturnal dyspnea, orthopnea Gastrointestinal: reports: diarrhea Musculoskeletal: denies: pain, tenderness, stiffness, swelling, arthritis/ arthralgias Neurological: reports: weakness - Objective Allergies/Adverse Reactions: Allergies Allergy/AdvReac Type Severity Reaction Status Date / Time Penicillins Allergy Severe THROAT Verified 07/28/19 15:38 SWELLING amiodarone Allergy Verified 08/05/19 17:41 Visit Medications: Current Medications Hydrocodone Bitart/Acetaminophen ([place] 5/325) 1 tab PO Q4H PRN PRN Reason: Moderate Pain (4-6) Last Admin: 08/02/19 08:29 Dose: 1 tab Hydrocodone Bitart/Acetaminophen ([place] 5/325) 2 tab PO Q4H PRN PRN Reason: Severe Pain (7-10) Last Admin: 08/01/19 13:14 Dose: 2 tab Al Hydroxide/Mg Hydroxide (Maalox) 30 ml PO Q4H PRN PRN Reason: Indigestion Albuterol/Ipratropium (Duoneb) 3 ml NEB Q6H PRN PRN Reason: SHORTNESS OF BREATH Artificial Tears (Tears Naturale) 1 drop EA EYE PRN PRN PRN Reason: Dry Eyes Aspirin (Ecotrin) 81 mg PO DAILY [facility] Last Admin: 08/06/19 09:39 Dose: 81 mg Atorvastatin Calcium (Lipitor) 10 mg PO HS [facility] Last Admin: 08/05/19 20:33 Dose: 10 mg Bisacodyl (Dulcolax) 10 mg PO Q12H PRN PRN Reason: Constipation Bisacodyl (Dulcolax) 10 mg [place] Q12H PRN PRN Reason: Constipation Diphenhydramine HCl (Benadryl) 25 mg PO Q6H PRN PRN Reason: Itching & Insomnia or Abhi Mitch Escitalopram Oxalate (Lexapro) 10 mg PO DAILY [facility] Last Admin: 08/06/19 09:39 Dose: 10 mg Guaifenesin/Dextromethorphan (Robitussin Dm) 15 ml PO Q4H PRN PRN Reason: Cough Lamivudine (Epivir) 150 mg PO BID [facility] Last Admin: 08/06/19 10:11 Dose: 150 mg Loperamide HCl (Imodium) 1 mg PO Q4H PRN PRN Reason: Diarrhea/Loose Stools Metoprolol Tartrate (Lopressor) 25 mg PO BID [facility] Last Admin: 08/06/19 09:39 Dose: 25 mg Mineral Oil (Fleet Mineral Oil) 133 ml [place] DAILYPRN PRN PRN Reason: Constipation Nitroglycerin (Nitrostat) 0.4 mg SL Q5MIN PRN PRN Reason: Chest Pain Ondansetron HCl (Zofran) 4 mg IVP Q6H PRN PRN Reason: Nausea/Vomiting Last Admin: 08/05/19 18:25 Dose: 4 mg Crixivan (Indinavir) (400 Mg) 2 each PO TID [facility] Last Admin: 08/06/19 09:41 Dose: 2 each Vancomycin HCl (First Vancomycin) 250 mg PO Q6HR [facility] Last Admin: 08/06/19 05:03 Dose: 250 mg Zidovudine (Retrovir) 300 mg PO BID [facility] Last Admin: 08/06/19 09:38 Dose: 300 mg Zolpidem Tartrate (Ambien) 5 mg PO HSPRN PRN PRN Reason: Insomnia Vital Signs & Weight: Vital Signs Temp Pulse Resp BP BP Pulse Ox 08/06/19 08:00 97.0 F L 68 17 133/68 96 08/06/19 03:30 98.0 F 72 14 135/61 95 Weight 126 lb 12.8 oz - Quality Measures CV meds: Beta Jan: Yes, SRINI/ARB: No, Statin: Yes, ASA: Yes, Plavix/Effient/ Brilinta: No, Anticoagulant: No - Physical Exam General: alert & oriented x3, appears well, no apparent distress HEENT: mucus membranes moist Neck: supple neck Cardiac: regular rate and rhythm Lungs: clear to auscultation, no wheeze, rales, rhonchi Neuro: grossly intact Abdomen: soft Extremities: no edema, 2+ Posterior Tibial, 2+ Dorsalis Pedus Skin: clear Musculoskeletal: no pain - Labs Result Diagrams: 08/06/19 04:28 08/06/19 04:28 - Assessment/Plan Assessment/Plan: 1. Severe multivessel CAD 2. S/P CABG x 4 3. HIV with undetectable CD4 count 4. Post op afib. 5. C-diff colitis 6. Depression Slow progress, but doing well. Remains in SR. No Amio with retrovirals. Supportive care for CDiff. Increase PT.
[2019-08-06 12:08] LABS: HIV-1 Quantitative, RNA PCR <20 copies/mL (.)
[2019-08-06] MEDS: Atorvastatin Calcium 10 MG TAB PO SCH (20:47)
[2019-08-07] MEDS: Vancomycin HCl 25 MG/ML Oral PO SCH ×5 (00:35→23:31)
[2019-08-07 04:40] LABS: #Eosinphils 0.2 thou/uL (0.0-0.7); #Lymphocytes 1.7 thou/uL (1.20-3.40); #Monocytes 0.6 thou/uL (0.11-0.59); #Neutrophils 4.5 thou/uL (1.40-6.50); %Basophils 0.3 % (0.0-1.0); %Eosinophils 3.2 % (0.0-10.0); %Lymphocytes 23.8 % (21.0-51.0); %Monocytes 8.9 % (0.0-10.0); %Neutrophils 63.8 % (42.0-75.0); Hemoglobin 9.5 g/dL (12.0-16.0); Mean Corpuscular HGB CONC 34.1 g/dL (32.0-36.0); Mean Corpuscular Hemoglobin 36.4 pg (27.0-31.0); Mean Platelet Volume 7.2 fL (7.4-10.4); Platelet Count 250 thou/uL (130-400); RBC Distribution Width 20.6 % (11.5-14.5); White Blood Cell (WBC) Count 7.1 thou/uL (4.8-10.8)
[2019-08-07 04:45] LABS: Anion Gap 12 mmol/L (10-20); BUN (Urea Nitrogen) 22 mg/dL (9.8-20.1); Calc. Creatinine Clearance 33 mL/min (70-130); Carbon Dioxide 22 mmol/L (23-31); Chloride 111 mmol/L (98-107); Estimated GFR-MDRD 40; Potassium 3.5 mmol/L (3.5-5.1); Sodium 141 mmol/L (136-145)
[2019-08-07 04:46] LABS: Calcium 8.9 mg/dL (7.8-10.44); Glucose 111 mg/dL (83-110)
[2019-08-07] MEDS: Escitalopram Oxalate 10 mg Tablet PO SCH (10:10)
[2019-08-07] MEDS: Metoprolol Tartrate 25 MG TAB PO SCH ×2 (10:10→21:26)
[2019-08-07] MEDS: CRIXIVAN PO SCH ×3 (10:12→21:26)
[2019-08-07] MEDS: Aspirin 81 mg Enteric Coated Tablet PO SCH (10:14)
--- NOTE | 2019-08-07 12:15 | RAD ---
XR Chest Pa Lat STANDARD HISTORY: Status post CABG, pleural effusion COMPARISON: 08/05/2019 FINDINGS: Changes of median sternotomy are again seen. Left-sided subclavian central venous catheter remains in place. There are bilateral pleural effusions, left larger than right with Consolidation/atelectatic change in the left lung base. No pneumothoraces are identified.
[2019-08-07] MEDS: Ondansetron PF 4 MG/2 ML Vial IVP PRN (12:59)
--- NOTE | 2019-08-07 16:48 | PDOC.CPN ---
- Subjective Date: 08/07/19 Time: 16:47 Interval history: She is doing better. Diarrhea improved but no normal BM yet. - Review of Systems General: denies: fever/chills, weight/appetite/sleep changes, night sweats, fatigue Respiratory: denies: cough, congestion, shortness of breath, exercise intolerance Cardiovascular: reports: chest pain. denies: palpitation, edema, paroxysmal nocturnal dyspnea, orthopnea Gastrointestinal: reports: diarrhea. denies: nausea, vomiting, constipation, abd pain, GI bleeding Musculoskeletal: denies: pain, tenderness, stiffness, swelling, arthritis/ arthralgias Neurological: denies: numbness, syncope, seizure, weakness - Objective Allergies/Adverse Reactions: Allergies Allergy/AdvReac Type Severity Reaction Status Date / Time Penicillins Allergy Severe THROAT Verified 07/28/19 15:38 SWELLING amiodarone Allergy Verified 08/05/19 17:41 Visit Medications: Current Medications Hydrocodone Bitart/Acetaminophen ([place] 5/325) 1 tab PO Q4H PRN PRN Reason: Moderate Pain (4-6) Last Admin: 08/02/19 08:29 Dose: 1 tab Hydrocodone Bitart/Acetaminophen ([place] 5/325) 2 tab PO Q4H PRN PRN Reason: Severe Pain (7-10) Last Admin: 08/01/19 13:14 Dose: 2 tab Al Hydroxide/Mg Hydroxide (Maalox) 30 ml PO Q4H PRN PRN Reason: Indigestion Albuterol/Ipratropium (Duoneb) 3 ml NEB Q6H PRN PRN Reason: SHORTNESS OF BREATH Artificial Tears (Tears Naturale) 1 drop EA EYE PRN PRN PRN Reason: Dry Eyes Aspirin (Ecotrin) 81 mg PO DAILY [facility] Last Admin: 08/07/19 10:14 Dose: 81 mg Atorvastatin Calcium (Lipitor) 10 mg PO HS [facility] Last Admin: 08/06/19 20:47 Dose: 10 mg Bisacodyl (Dulcolax) 10 mg PO Q12H PRN PRN Reason: Constipation Bisacodyl (Dulcolax) 10 mg [place] Q12H PRN PRN Reason: Constipation Diphenhydramine HCl (Benadryl) 25 mg PO Q6H PRN PRN Reason: Itching & Insomnia or Abhi Mitch Escitalopram Oxalate (Lexapro) 10 mg PO DAILY [facility] Last Admin: 08/07/19 10:10 Dose: 10 mg Guaifenesin/Dextromethorphan (Robitussin Dm) 15 ml PO Q4H PRN PRN Reason: Cough Lamivudine (Epivir) 150 mg PO BID [facility] Last Admin: 08/07/19 10:11 Dose: 150 mg Loperamide HCl (Imodium) 1 mg PO Q4H PRN PRN Reason: Diarrhea/Loose Stools Metoprolol Tartrate (Lopressor) 25 mg PO BID [facility] Last Admin: 08/07/19 10:10 Dose: 25 mg Mineral Oil (Fleet Mineral Oil) 133 ml [place] DAILYPRN PRN PRN Reason: Constipation Nitroglycerin (Nitrostat) 0.4 mg SL Q5MIN PRN PRN Reason: Chest Pain Ondansetron HCl (Zofran) 4 mg IVP Q6H PRN PRN Reason: Nausea/Vomiting Last Admin: 08/07/19 12:59 Dose: 4 mg Crixivan (Indinavir) (400 Mg) 2 each PO TID [facility] Last Admin: 08/07/19 14:47 Dose: 2 each Vancomycin HCl (First Vancomycin) 250 mg PO Q6HR [facility] Last Admin: 08/07/19 12:59 Dose: 250 mg Zidovudine (Retrovir) 300 mg PO BID [facility] Last Admin: 08/07/19 10:11 Dose: 300 mg Zolpidem Tartrate (Ambien) 5 mg PO HSPRN PRN PRN Reason: Insomnia Vital Signs & Weight: Vital Signs Temp Pulse Pulse Pulse Resp BP BP 08/07/19 16:16 97.8 F 63 19 08/07/19 12:00 97.8 F 62 12 08/07/19 11:08 61 63 130/64 142/64 H 08/07/19 08:00 96.9 F L 65 BP BP Pulse Ox 08/07/19 16:16 134/62 97 08/07/19 12:00 127/60 95 08/07/19 11:08 08/07/19 08:00 140/64 95 Weight 131 lb - Quality Measures CV meds: Beta Jan: Yes, SRINI/ARB: No, Statin: Yes, ASA: Yes, Plavix/Effient/ Brilinta: No, Anticoagulant: No - Physical Exam General: alert & oriented x3 HEENT: mucus membranes moist Neck: supple neck Cardiac: regular rate and rhythm Lungs: normal breath sounds Neuro: grossly intact Abdomen: active bowel sounds Extremities: no edema Skin: clear Musculoskeletal: no pain - Labs Result Diagrams: 08/07/19 04:10 08/07/19 04:10 - Telemetry Sinus rhythms and dysrhythmias: sinus rhythm - Assessment/Plan Assessment/Plan: 1. Severe multivessel CAD 2. S/P CABG x 4 3. HIV with undetectable CD4 count 4. Post op afib. 5. C-diff colitis 6. Depression PLAN: - ASA/Statin for life. - No amiodarone as it has major interactions with her anti retrovirals. Currently she remains in sinus on BB alone. - Increase PT as tolerated. - Will need inpatient rehab on discharge. - Appreciate Dr. Araceli jimenez, continue PO vanc.
--- NOTE | 2019-08-07 17:46 | PRG ---
DATE OF SERVICE: 08/07/2019 SUBJECTIVE: Ms. Fox is still having some nausea. No respiratory symptoms. No abdominal pain. OBJECTIVE: VITAL SIGNS: Normal. GENERAL: She does not appear in distress. LUNGS: Clear. HEART: S1 and S2, regular rate. ABDOMEN: Soft with stable bowel sounds. LABORATORY DATA: White cell count 7.1, hemoglobin 9.5, and platelets 250. Sodium 141, creatinine 1.29. HIV RNA PCR less than 20 and a CD4 cell count 316. Repeat chest x-ray from this morning with atelectases, left lung base. A left subclavian central venous catheter remains in place. ASSESSMENT AND DISCUSSION: Longstanding human immunodeficiency virus infection on anti-retroviral therapy despite being an older regimen but taken with consistency and adequate suppression of viral load. Now, Clostridium difficile colitis, which developed following coronary artery bypass graft surgery for left main disease, is slowly improving. She will need a taper dose of vancomycin since she has a high risk of relapse. Job ID: [id number] [facility]
[2019-08-07] MEDS: Atorvastatin Calcium 10 MG TAB PO SCH (21:25)
--- NOTE | 2019-08-08 01:26 | CON ---
DATE OF CONSULTATION: 08/07/2019 HISTORY OF PRESENT ILLNESS: Ms. Fox is a very pleasant 79-year-old female. I was consulted for pleural effusion. She is having some difficulty with dyspnea on exertion and fatigability with rehab. She recently underwent coronary artery bypass grafting. She has developed Clostridium difficile colitis postoperatively. She is HIV positive, but is apparently compliant with anti-retroviral therapy. She denies shortness of breath at rest. PAST MEDICAL HISTORY: 1. HIV positive for least 20 years, compliant with therapy. Apparently, she has never had an opportunistic infection. 2. Coronary artery disease status post coronary artery bypass grafting. 3. Clostridium difficile colitis. 4. History of laparoscopic cholecystectomy. SOCIAL HISTORY: She is a nonsmoker and nondrinker. She lives in [place]. 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 FAMILY HISTORY: Negative for lung disease in early age. REVIEW OF SYSTEMS: 10 point review of systems completed, otherwise, negative. PHYSICAL EXAMINATION: GENERAL: She is a wonderfully pleasant woman. She is afebrile. VITAL SIGNS: Heart rate 63, respiratory rate is 19, oximetry is 97% on room air , blood pressure 130/64. HEENT: Unremarkable. NECK: Without lymphadenopathy. LUNGS: Clear. HEART: Regular rhythm. S1 and S2 are normal. ABDOMEN: Soft and nontender. EXTREMITIES: Without clubbing, cyanosis, or edema. NEUROLOGICAL: Nonfocal. LABORATORY DATA: White count 7.1, hemoglobin 9.5, platelets 250,000. Sodium 141, potassium 3.5, chloride 111, bicarb 22, BUN 22, creatinine 1.29. Chest x-ray shows a small left effusion, estimating that she has between 200 and 300 mL of pleural fluid on the left. This most likely represents a mixture of blood and water. I do not recommend a thoracentesis as it will not likely lead to significant improvement in her exercise tolerance at this point. I will have her to be happy to follow along with the other physicians caring for her. TIME SPENT: This is a 50-minute consult, with greater than 50% of the time was spent on the unit coordinating care. Job ID: [id number] [facility]
[2019-08-08 05:48] LABS: #Eosinphils 0.1 thou/uL (0.0-0.7); #Lymphocytes 1.6 thou/uL (1.20-3.40); #Monocytes 0.6 thou/uL (0.11-0.59); #Neutrophils 3.9 thou/uL (1.40-6.50); %Basophils 0.4 % (0.0-1.0); %Lymphocytes 25.5 % (21.0-51.0); %Monocytes 8.8 % (0.0-10.0); %Neutrophils 63.2 % (42.0-75.0); Anion Gap 11 mmol/L (10-20); BUN (Urea Nitrogen) 20 mg/dL (9.8-20.1); Calc. Creatinine Clearance 34 mL/min (70-130); Calcium 8.9 mg/dL (7.8-10.44); Carbon Dioxide 23 mmol/L (23-31); Chloride 107 mmol/L (98-107); Estimated GFR-MDRD 41; Glucose 101 mg/dL (83-110); Hemoglobin 9.5 g/dL (12.0-16.0); Mean Corpuscular HGB CONC 35.4 g/dL (32.0-36.0); Mean Corpuscular Hemoglobin 37.9 pg (27.0-31.0); Mean Platelet Volume 6.9 fL (7.4-10.4); Platelet Count 277 thou/uL (130-400); Potassium 3.5 mmol/L (3.5-5.1); RBC Distribution Width 20.6 % (11.5-14.5); Red Blood Cell (RBC) Count 2.51 mill/uL (4.20-5.40); Sodium 137 mmol/L (136-145); White Blood Cell (WBC) Count 6.2 thou/uL (4.8-10.8)
[2019-08-08] MEDS: Vancomycin HCl 25 MG/ML Oral PO SCH ×3 (06:16→18:37)
[2019-08-08] MEDS: Escitalopram Oxalate 10 mg Tablet PO SCH (09:05)
[2019-08-08] MEDS: Metoprolol Tartrate 25 MG TAB PO SCH ×2 (09:05→20:22)
[2019-08-08] MEDS: Aspirin 81 mg Enteric Coated Tablet PO SCH (09:05)
[2019-08-08] MEDS: CRIXIVAN PO SCH ×3 (09:05→20:22)
--- NOTE | 2019-08-08 15:15 | PRG ---
DATE OF SERVICE: 08/08/2019 SUBJECTIVE: Ms. Fox is afebrile. Heart rate 63, respiratory rate 20, oximetry is 95% on room air, blood pressure 120/53. She walked back and forth in the [place] today, so she is doing much better than she did yesterday from a performance standpoint. Lungs, heart, and abdomen are unchanged. LABORATORY DATA: White count 6.2, hemoglobin 9.5, platelets 277. Electrolytes are unremarkable. Creatinine is 1.25. IMPRESSION AND PLAN: Postop small left pleural effusion. At this point in time, I do not feel thoracentesis is indicated. I will continue to follow her. Probably see her once she is out of here in a month to 6 weeks to document clearing of her effusion. Job ID: [id number]
--- NOTE | 2019-08-08 18:51 | PDOC.CPN ---
- Subjective Date: 08/08/19 Time: 18:49 Interval history: She is doing much better today. She had a normal BM today. No chest pain. Working with PT well. - Review of Systems General: denies: fever/chills, weight/appetite/sleep changes, night sweats, fatigue Respiratory: denies: cough, congestion, shortness of breath, exercise intolerance Cardiovascular: denies: chest pain, palpitation, edema, paroxysmal nocturnal dyspnea, orthopnea Gastrointestinal: denies: nausea, vomiting, diarrhea, constipation, abd pain, GI bleeding Musculoskeletal: denies: pain, tenderness, stiffness, swelling, arthritis/ arthralgias Neurological: denies: numbness, syncope, seizure, weakness - Objective Allergies/Adverse Reactions: Allergies Allergy/AdvReac Type Severity Reaction Status Date / Time Penicillins Allergy Severe THROAT Verified 07/28/19 15:38 SWELLING amiodarone Allergy Verified 08/05/19 17:41 Visit Medications: Current Medications Hydrocodone Bitart/Acetaminophen ([place] 5/325) 1 tab PO Q4H PRN PRN Reason: Moderate Pain (4-6) Last Admin: 08/02/19 08:29 Dose: 1 tab Hydrocodone Bitart/Acetaminophen ([place] 5/325) 2 tab PO Q4H PRN PRN Reason: Severe Pain (7-10) Last Admin: 08/01/19 13:14 Dose: 2 tab Al Hydroxide/Mg Hydroxide (Maalox) 30 ml PO Q4H PRN PRN Reason: Indigestion Albuterol/Ipratropium (Duoneb) 3 ml NEB Q6H PRN PRN Reason: SHORTNESS OF BREATH Artificial Tears (Tears Naturale) 1 drop EA EYE PRN PRN PRN Reason: Dry Eyes Aspirin (Ecotrin) 81 mg PO DAILY [facility] Last Admin: 08/08/19 09:05 Dose: 81 mg Atorvastatin Calcium (Lipitor) 10 mg PO HS [facility] Last Admin: 08/07/19 21:25 Dose: 10 mg Bisacodyl (Dulcolax) 10 mg PO Q12H PRN PRN Reason: Constipation Bisacodyl (Dulcolax) 10 mg NE Q12H PRN PRN Reason: Constipation Diphenhydramine HCl (Benadryl) 25 mg PO Q6H PRN PRN Reason: Itching & Insomnia or Abhi Mitch Escitalopram Oxalate (Lexapro) 10 mg PO DAILY [facility] Last Admin: 08/08/19 09:05 Dose: 10 mg Guaifenesin/Dextromethorphan (Robitussin Dm) 15 ml PO Q4H PRN PRN Reason: Cough Lamivudine (Epivir) 150 mg PO BID [facility] Last Admin: 08/08/19 10:38 Dose: 150 mg Loperamide HCl (Imodium) 1 mg PO Q4H PRN PRN Reason: Diarrhea/Loose Stools Metoprolol Tartrate (Lopressor) 25 mg PO BID [facility] Last Admin: 08/08/19 09:05 Dose: 25 mg Mineral Oil (Fleet Mineral Oil) 133 ml NE DAILYPRN PRN PRN Reason: Constipation Nitroglycerin (Nitrostat) 0.4 mg SL Q5MIN PRN PRN Reason: Chest Pain Ondansetron HCl (Zofran) 4 mg IVP Q6H PRN PRN Reason: Nausea/Vomiting Last Admin: 08/07/19 12:59 Dose: 4 mg Crixivan (Indinavir) (400 Mg) 2 each PO TID [facility] Last Admin: 08/08/19 16:25 Dose: 2 each Vancomycin HCl (First Vancomycin) 250 mg PO Q6HR [facility] Last Admin: 08/08/19 18:37 Dose: 250 mg Zidovudine (Retrovir) 300 mg PO BID [facility] Last Admin: 08/08/19 09:05 Dose: 300 mg Zolpidem Tartrate (Ambien) 5 mg PO HSPRN PRN PRN Reason: Insomnia Vital Signs & Weight: Vital Signs Temp Pulse Pulse Pulse Resp BP BP 08/08/19 15:10 97.7 F 63 18 08/08/19 14:10 124/60 08/08/19 12:00 97.8 F 63 20 08/08/19 11:17 62 63 132/62 127/58 L 08/08/19 07:46 96.4 F L 83 20 BP Pulse Ox 08/08/19 15:10 135/63 97 08/08/19 14:10 08/08/19 12:00 128/53 L 95 08/08/19 11:17 08/08/19 07:46 135/72 95 Weight 134 lb - Quality Measures CV meds: Beta Jan: Yes, SRINI/ARB: No, Statin: Yes, ASA: Yes, Plavix/Effient/ Brilinta: No, Anticoagulant: No - Physical Exam General: alert & oriented x3 HEENT: mucus membranes moist Neck: supple neck Cardiac: regular rate and rhythm Lungs: clear to auscultation Neuro: grossly intact Abdomen: active bowel sounds Extremities: no edema Skin: clear Musculoskeletal: no pain - Labs Result Diagrams: 08/08/19 04:29 08/08/19 04:29 - Telemetry Sinus rhythms and dysrhythmias: sinus rhythm - Assessment/Plan Assessment/Plan: 1. Severe multivessel CAD 2. S/P CABG x 4 3. HIV with undetectable CD4 count 4. Post op afib. 5. C-diff colitis 6. Depression 7. Small pleural effusion. PLAN: - ASA/Statin for life. - No amiodarone as it has major interactions with her anti retrovirals. Still in sinus on BB alone. - Increase PT as tolerated. - Will need inpatient rehab on discharge. - Appreciate Dr. Araceli jimenez, continue PO vanc. - Appreciate Dr. Chiu's input, no plan on thoracentesis - Placement to inpatient rehab.
[2019-08-08] MEDS: Atorvastatin Calcium 10 MG TAB PO SCH (20:22)
[2019-08-09] MEDS: Vancomycin HCl 25 MG/ML Oral PO SCH ×5 (00:19→23:46)
[2019-08-09 04:54] LABS: Anion Gap 12 mmol/L (10-20); BUN (Urea Nitrogen) 21 mg/dL (9.8-20.1); Calc. Creatinine Clearance 38 mL/min (70-130); Calcium 8.9 mg/dL (7.8-10.44); Carbon Dioxide 21 mmol/L (23-31); Chloride 108 mmol/L (98-107); Estimated GFR-MDRD 46; Glucose 104 mg/dL (83-110); Potassium 3.6 mmol/L (3.5-5.1); Sodium 137 mmol/L (136-145)
[2019-08-09 04:56] LABS: #Eosinphils 0.2 thou/uL (0.0-0.7); #Lymphocytes 2.1 thou/uL (1.20-3.40); #Monocytes 0.5 thou/uL (0.11-0.59); #Neutrophils 4.2 thou/uL (1.40-6.50); %Basophils 0.6 % (0.0-1.0); %Eosinophils 2.6 % (0.0-10.0); %Lymphocytes 29.8 % (21.0-51.0); %Neutrophils 59.9 % (42.0-75.0); Hemoglobin 10.2 g/dL (12.0-16.0); MDiff Complete? YES; Macrocytosis SLIGHT = 6-15 cells (100X) (0-5/hpf); Mean Corpuscular Hemoglobin 38.1 pg (27.0-31.0); Mean Platelet Volume 6.6 fL (7.4-10.4); Platelet Count 299 thou/uL (130-400); Platelet Morphology Comment Appears Adequate; RBC Distribution Width 20.3 % (11.5-14.5); Red Blood Cell (RBC) Count 2.68 mill/uL (4.20-5.40); White Blood Cell (WBC) Count 7.1 thou/uL (4.8-10.8)
[2019-08-09] MEDS: Escitalopram Oxalate 10 mg Tablet PO SCH (09:51)
[2019-08-09] MEDS: Aspirin 81 mg Enteric Coated Tablet PO SCH (09:51)
[2019-08-09] MEDS: Metoprolol Tartrate 25 MG TAB PO SCH ×2 (09:51→19:50)
[2019-08-09] MEDS: CRIXIVAN PO SCH ×3 (09:52→19:50)
[2019-08-09 13:43] VITALS: BMI 19.5
--- NOTE | 2019-08-09 14:07 | PRG ---
DATE OF SERVICE: 08/09/2019 SUBJECTIVE: Katie Fox says she is feeling better. She is less dyspnea on exertion. OBJECTIVE: VITAL SIGNS: She is afebrile, heart rate 62, respiratory rate 17, oximetry is 96% on room air, and blood pressure 119/54. LUNGS: Unchanged. HEART: Unchanged. ABDOMEN: Unchanged. IMPRESSION: Left pleural effusion after heart surgery. I do not feel that this is large enough to tap at this point in time. It certainly could be tapped, but I do not feel that we will give her any therapeutic relief from a physical therapy standpoint. I will continue to follow the other physicians caring for. Job ID: [id number]
--- NOTE | 2019-08-09 19:11 | PDOC.CPN ---
- Subjective Date: 08/09/19 Time: 19:09 Interval history: She is doing much better. No chest pain. Normal Bowel movement, no more diarrhea. - Review of Systems General: denies: fever/chills, weight/appetite/sleep changes, night sweats, fatigue Respiratory: denies: cough, congestion, shortness of breath, exercise intolerance Cardiovascular: denies: chest pain, palpitation, edema, paroxysmal nocturnal dyspnea, orthopnea Gastrointestinal: denies: nausea, vomiting, diarrhea, constipation, abd pain, GI bleeding Musculoskeletal: denies: pain, tenderness, stiffness, swelling, arthritis/ arthralgias Neurological: denies: numbness, syncope, seizure, weakness - Objective Allergies/Adverse Reactions: Allergies Allergy/AdvReac Type Severity Reaction Status Date / Time Penicillins Allergy Severe THROAT Verified 07/28/19 15:38 SWELLING amiodarone Allergy Verified 08/05/19 17:41 Visit Medications: Current Medications Hydrocodone Bitart/Acetaminophen ([place] 5/325) 1 tab PO Q4H PRN PRN Reason: Moderate Pain (4-6) Last Admin: 08/02/19 08:29 Dose: 1 tab Hydrocodone Bitart/Acetaminophen ([place] 5/325) 2 tab PO Q4H PRN PRN Reason: Severe Pain (7-10) Last Admin: 08/01/19 13:14 Dose: 2 tab Al Hydroxide/Mg Hydroxide (Maalox) 30 ml PO Q4H PRN PRN Reason: Indigestion Albuterol/Ipratropium (Duoneb) 3 ml NEB Q6H PRN PRN Reason: SHORTNESS OF BREATH Artificial Tears (Tears Naturale) 1 drop EA EYE PRN PRN PRN Reason: Dry Eyes Aspirin (Ecotrin) 81 mg PO DAILY [facility] Last Admin: 08/09/19 09:51 Dose: 81 mg Atorvastatin Calcium (Lipitor) 10 mg PO HS [facility] Last Admin: 08/08/19 20:22 Dose: 10 mg Bisacodyl (Dulcolax) 10 mg PO Q12H PRN PRN Reason: Constipation Bisacodyl (Dulcolax) 10 mg MT Q12H PRN PRN Reason: Constipation Diphenhydramine HCl (Benadryl) 25 mg PO Q6H PRN PRN Reason: Itching & Insomnia or Abhi Mitch Escitalopram Oxalate (Lexapro) 10 mg PO DAILY [facility] Last Admin: 08/09/19 09:51 Dose: 10 mg Guaifenesin/Dextromethorphan (Robitussin Dm) 15 ml PO Q4H PRN PRN Reason: Cough Lamivudine (Epivir) 150 mg PO BID [facility] Last Admin: 08/09/19 10:41 Dose: 150 mg Loperamide HCl (Imodium) 1 mg PO Q4H PRN PRN Reason: Diarrhea/Loose Stools Metoprolol Tartrate (Lopressor) 25 mg PO BID [facility] Last Admin: 08/09/19 09:51 Dose: 25 mg Mineral Oil (Fleet Mineral Oil) 133 ml MT DAILYPRN PRN PRN Reason: Constipation Nitroglycerin (Nitrostat) 0.4 mg SL Q5MIN PRN PRN Reason: Chest Pain Ondansetron HCl (Zofran) 4 mg IVP Q6H PRN PRN Reason: Nausea/Vomiting Last Admin: 08/07/19 12:59 Dose: 4 mg Crixivan (Indinavir) (400 Mg) 2 each PO TID [facility] Last Admin: 08/09/19 14:29 Dose: 2 each Vancomycin HCl (First Vancomycin) 250 mg PO Q6HR [facility] Last Admin: 08/09/19 18:35 Dose: 250 mg Zidovudine (Retrovir) 300 mg PO BID [facility] Last Admin: 08/09/19 09:51 Dose: 300 mg Zolpidem Tartrate (Ambien) 5 mg PO HSPRN PRN PRN Reason: Insomnia Vital Signs & Weight: Vital Signs Temp Pulse Pulse Pulse Resp BP BP 08/09/19 16:00 96.6 F L 60 16 08/09/19 12:00 96.8 F L 62 17 08/09/19 09:29 65 69 160/70 H 139/62 08/09/19 08:00 08/09/19 07:39 96.6 F L 66 16 BP BP Pulse Ox 08/09/19 16:00 154/65 H 08/09/19 12:00 119/54 L 96 08/09/19 09:29 08/09/19 08:00 94 L 08/09/19 07:39 142/68 H 94 L Admit Weight 140 lb Weight 132 lb 3.2 oz - Quality Measures CV meds: Beta Jan: Yes, SRINI/ARB: No, Statin: Yes, ASA: Yes, Plavix/Effient/ Brilinta: No, Anticoagulant: No - Physical Exam General: alert & oriented x3 HEENT: mucus membranes moist, normocephaly Neck: supple neck Cardiac: regular rate and rhythm, no murmur Lungs: normal breath sounds Neuro: grossly intact Abdomen: active bowel sounds Extremities: no edema Skin: clear Musculoskeletal: no pain - Labs Result Diagrams: 08/09/19 04:18 08/09/19 04:18 - Telemetry Sinus rhythms and dysrhythmias: sinus rhythm - Assessment/Plan Assessment/Plan: 1. Severe multivessel CAD 2. S/P CABG x 4 3. HIV with undetectable CD4 count 4. Post op afib. 5. C-diff colitis 6. Depression 7. Small pleural effusion. PLAN: - ASA/Statin for life. - No amiodarone as it has major interactions with her anti retrovirals. Still in sinus on BB alone. - Increase PT as tolerated. - Will need inpatient rehab on discharge. - Appreciate Dr. Araceli jimenez, continue PO vanc. - Appreciate Dr. Chiu's input, no plan on thoracentesis - Placement to inpatient rehab. - She is ready to move on at this time. [facility]
[2019-08-09] MEDS: Enoxaparin Sodium 40 MG/0.4 ML SYRINGE SC SCH (19:49)
[2019-08-09] MEDS: Atorvastatin Calcium 10 MG TAB PO SCH (19:50)
[2019-08-10 04:36] LABS: #Eosinphils 0.2 thou/uL (0.0-0.7); #Lymphocytes 1.6 thou/uL (1.20-3.40); #Monocytes 0.5 thou/uL (0.11-0.59); #Neutrophils 4.5 thou/uL (1.40-6.50); %Basophils 0.6 % (0.0-1.0); %Eosinophils 3.1 % (0.0-10.0); %Monocytes 7.1 % (0.0-10.0); %Neutrophils 65.1 % (42.0-75.0); Mean Corpuscular HGB CONC 34.3 g/dL (32.0-36.0); Mean Corpuscular Hemoglobin 37.1 pg (27.0-31.0); Mean Platelet Volume 6.5 fL (7.4-10.4); Platelet Count 305 thou/uL (130-400); RBC Distribution Width 20.5 % (11.5-14.5); Red Blood Cell (RBC) Count 2.71 mill/uL (4.20-5.40); White Blood Cell (WBC) Count 6.8 thou/uL (4.8-10.8)
[2019-08-10 04:54] LABS: Anion Gap 12 mmol/L (10-20); BUN (Urea Nitrogen) 20 mg/dL (9.8-20.1); Calc. Creatinine Clearance 35 mL/min (70-130); Calcium 8.7 mg/dL (7.8-10.44); Carbon Dioxide 22 mmol/L (23-31); Chloride 106 mmol/L (98-107); Estimated GFR-MDRD 41; Glucose 104 mg/dL (83-110); Potassium 3.9 mmol/L (3.5-5.1); Sodium 136 mmol/L (136-145)
[2019-08-10] MEDS: Vancomycin HCl 25 MG/ML Oral PO SCH ×4 (05:32→23:55)
[2019-08-10] MEDS: Metoprolol Tartrate 25 MG TAB PO SCH ×2 (09:19→20:29)
[2019-08-10] MEDS: Aspirin 81 mg Enteric Coated Tablet PO SCH (09:19)
[2019-08-10] MEDS: Escitalopram Oxalate 10 mg Tablet PO SCH (09:19)
[2019-08-10] MEDS: CRIXIVAN PO SCH ×3 (09:20→20:30)
--- NOTE | 2019-08-10 11:04 | PRG ---
DATE OF SERVICE: 08/09/2019 SUBJECTIVE: Ms. Fox has the appearance of resolution of the diarrhea she is much more alert and comfortable at rest. OBJECTIVE: VITAL SIGNS: Normal. She is afebrile. LUNGS: Clear. HEART: S1 and S2, regular rate. ABDOMEN: Soft. Bowel sounds are normal. NEURO: Nonfocal. LABORATORY DATA: White cell count 7.1, hemoglobin 10.2, platelets 299 with normal differential. Creatinine is at 1.26. The CD4 was 316 and viral load was undetectable. ASSESSMENT AND DISCUSSION: Longstanding human immunodeficiency virus infection, well controlled with the old regimen which he takes faithfully, and Clostridium difficile colitis following coronary artery bypass graft surgery. The patient has improved markedly and we will continue vancomycin. Eventually, I would advise a taper to prevent a relapse since she is at high risk. Job ID: [id number] MTDD
--- NOTE | 2019-08-10 19:18 | PDOC.CPN ---
- Subjective Date: 08/10/19 Time: 19:15 Interval history: She is doing well today. No angina. She went to the [employer] garden today. No more diarrhea. - Review of Systems General: denies: fever/chills, weight/appetite/sleep changes, night sweats, fatigue Respiratory: denies: cough, congestion, shortness of breath, exercise intolerance Cardiovascular: denies: chest pain, palpitation, edema, paroxysmal nocturnal dyspnea, orthopnea Gastrointestinal: denies: nausea, vomiting, diarrhea, constipation, abd pain, GI bleeding Musculoskeletal: denies: pain, tenderness, stiffness, swelling, arthritis/ arthralgias Neurological: denies: numbness, syncope, seizure, weakness - Objective Allergies/Adverse Reactions: Allergies Allergy/AdvReac Type Severity Reaction Status Date / Time Penicillins Allergy Severe THROAT Verified 07/28/19 15:38 SWELLING amiodarone Allergy Verified 08/05/19 17:41 Visit Medications: Current Medications Hydrocodone Bitart/Acetaminophen ([place] 5/325) 1 tab PO Q4H PRN PRN Reason: Moderate Pain (4-6) Last Admin: 08/02/19 08:29 Dose: 1 tab Hydrocodone Bitart/Acetaminophen ([place] 5/325) 2 tab PO Q4H PRN PRN Reason: Severe Pain (7-10) Last Admin: 08/01/19 13:14 Dose: 2 tab Al Hydroxide/Mg Hydroxide (Maalox) 30 ml PO Q4H PRN PRN Reason: Indigestion Albuterol/Ipratropium (Duoneb) 3 ml NEB Q6H PRN PRN Reason: SHORTNESS OF BREATH Artificial Tears (Tears Naturale) 1 drop EA EYE PRN PRN PRN Reason: Dry Eyes Aspirin (Ecotrin) 81 mg PO DAILY [facility] Last Admin: 08/10/19 09:19 Dose: 81 mg Atorvastatin Calcium (Lipitor) 10 mg PO HS [facility] Last Admin: 08/09/19 19:50 Dose: 10 mg Bisacodyl (Dulcolax) 10 mg PO Q12H PRN PRN Reason: Constipation Bisacodyl (Dulcolax) 10 mg IN Q12H PRN PRN Reason: Constipation Diphenhydramine HCl (Benadryl) 25 mg PO Q6H PRN PRN Reason: Itching & Insomnia or Abhi Mitch Enoxaparin Sodium (Lovenox) 40 mg SC 2100 [facility] Last Admin: 08/09/19 19:49 Dose: 40 mg Escitalopram Oxalate (Lexapro) 10 mg PO DAILY [facility] Last Admin: 08/10/19 09:19 Dose: 10 mg Guaifenesin/Dextromethorphan (Robitussin Dm) 15 ml PO Q4H PRN PRN Reason: Cough Lamivudine (Epivir) 150 mg PO BID [facility] Last Admin: 08/10/19 09:19 Dose: 150 mg Loperamide HCl (Imodium) 1 mg PO Q4H PRN PRN Reason: Diarrhea/Loose Stools Metoprolol Tartrate (Lopressor) 25 mg PO BID [facility] Last Admin: 08/10/19 09:19 Dose: 25 mg Mineral Oil (Fleet Mineral Oil) 133 ml IN DAILYPRN PRN PRN Reason: Constipation Nitroglycerin (Nitrostat) 0.4 mg SL Q5MIN PRN PRN Reason: Chest Pain Ondansetron HCl (Zofran) 4 mg IVP Q6H PRN PRN Reason: Nausea/Vomiting Last Admin: 08/07/19 12:59 Dose: 4 mg Crixivan (Indinavir) (400 Mg) 2 each PO TID [facility] Last Admin: 08/10/19 16:21 Dose: 2 each Vancomycin HCl (First Vancomycin) 250 mg PO Q6HR [facility] Last Admin: 08/10/19 18:47 Dose: 250 mg Zidovudine (Retrovir) 300 mg PO BID [facility] Last Admin: 08/10/19 09:20 Dose: 300 mg Zolpidem Tartrate (Ambien) 5 mg PO HSPRN PRN PRN Reason: Insomnia Vital Signs & Weight: Vital Signs Temp Pulse Pulse Pulse Resp BP BP 08/10/19 16:20 97.7 F 67 16 08/10/19 13:52 62 63 135/65 134/65 08/10/19 11:51 97.3 F L 64 16 08/10/19 10:35 66 64 164/66 H 134/64 08/10/19 09:54 64 69 164/66 H 133/60 08/10/19 09:01 97.7 F 69 18 BP Pulse Ox 08/10/19 16:20 143/67 H 99 08/10/19 13:52 08/10/19 11:51 129/60 97 08/10/19 10:35 08/10/19 09:54 08/10/19 09:01 123/57 L 97 Admit Weight 140 lb Weight 135 lb 15.698 oz - Quality Measures CV meds: Beta Jan: Yes, SRINI/ARB: No, Statin: Yes, ASA: Yes, Plavix/Effient/ Brilinta: No, Anticoagulant: No - Physical Exam General: alert & oriented x3 HEENT: mucus membranes moist Neck: supple neck Cardiac: regular rate and rhythm Lungs: normal breath sounds Neuro: grossly intact Abdomen: active bowel sounds Extremities: no edema Skin: clear Musculoskeletal: no pain - Labs Result Diagrams: 08/10/19 04:15 08/10/19 04:15 - Telemetry Sinus rhythms and dysrhythmias: sinus rhythm - Assessment/Plan Assessment/Plan: 1. Severe multivessel CAD 2. S/P CABG x 4 3. HIV with undetectable CD4 count 4. Post op afib. 5. C-diff colitis 6. Depression 7. Small pleural effusion. PLAN: - ASA/Statin for life. - No amiodarone as it has major interactions with her anti retrovirals. Still in sinus on BB alone. - Increase PT as tolerated. - Will need inpatient rehab on discharge. - Appreciate Dr. Araceli jimenez, continue PO vanc, will complete 10 days and then do a taper at same dose but Q8hr for 7 days then q12 for 7 days then q day for 7 days then every other day for 7 days and then stop.
[2019-08-10] MEDS: Atorvastatin Calcium 10 MG TAB PO SCH (20:30)
[2019-08-10] MEDS: Enoxaparin Sodium 40 MG/0.4 ML SYRINGE SC SCH (20:30)
[2019-08-11 05:31] LABS: Anion Gap 13 mmol/L (10-20); BUN (Urea Nitrogen) 20 mg/dL (9.8-20.1); Calc. Creatinine Clearance 34 mL/min (70-130); Calcium 9.2 mg/dL (7.8-10.44); Carbon Dioxide 24 mmol/L (23-31); Chloride 107 mmol/L (98-107); Estimated GFR-MDRD 39; Glucose 95 mg/dL (83-110); Potassium 3.8 mmol/L (3.5-5.1); Sodium 140 mmol/L (136-145)
[2019-08-11] MEDS: Vancomycin HCl 25 MG/ML Oral PO SCH ×2 (05:57→11:07)
[2019-08-11 06:28] LABS: #Basophils 0.1 thou/uL (0.0-0.2); #Eosinphils 0.2 thou/uL (0.0-0.7); #Monocytes 0.4 thou/uL (0.11-0.59); #Neutrophils 3.7 thou/uL (1.40-6.50); %Basophils 0.9 % (0.0-1.0); %Eosinophils 3.2 % (0.0-10.0); %Lymphocytes 31.2 % (21.0-51.0); %Monocytes 6.3 % (0.0-10.0); %Neutrophils 58.4 % (42.0-75.0); Anisocytosis MODERATE=16-30 cells (100X) (0-5/hpf); Hemoglobin 10.4 g/dL (12.0-16.0); MDiff Complete? YES; Mean Corpuscular HGB CONC 35.2 g/dL (32.0-36.0); Mean Corpuscular Hemoglobin 37.8 pg (27.0-31.0); Mean Platelet Volume 6.6 fL (7.4-10.4); Platelet Count 349 thou/uL (130-400); RBC Distribution Width 20.3 % (11.5-14.5); Red Blood Cell (RBC) Count 2.76 mill/uL (4.20-5.40); White Blood Cell (WBC) Count 6.4 thou/uL (4.8-10.8)
[2019-08-11] MEDS: CRIXIVAN PO SCH ×2 (08:12→15:45)
[2019-08-11] MEDS: Aspirin 81 mg Enteric Coated Tablet PO SCH (08:12)
[2019-08-11] MEDS: Metoprolol Tartrate 25 MG TAB PO SCH (08:12)
[2019-08-11] MEDS: Escitalopram Oxalate 10 mg Tablet PO SCH (08:12)
--- NOTE | 2019-08-11 08:26 | PRG ---
DATE OF SERVICE: 08/10/2019 SUBJECTIVE: Katie Fox has no complaints. She walked 150 feet in the [place] today. OBJECTIVE: VITAL SIGNS: Stable. She is afebrile, heart rate 69, respiratory rate is 18, sats are 97% on room air, blood pressure 123/57. Intake and output positive 590 mL. ABDOMEN: Unchanged. IMPRESSION: Small left pleural effusion, stable clinically. No indication for thoracentesis this time. I doubt she has an infected pleural space. We will continue to follow. Job ID: [id number]
[2019-08-11 11:11] VITALS: TEMP 96.8
[2019-08-11 13:15] VITALS: BP 142/66
[2019-08-12] MEDS ORDERED: Lisinopril 2.5 MG TAB PO SCH (09:00)
--- NOTE | 2019-08-14 04:15 | PQF ---
LASHONDA VASQUEZ FERNANDO [id number] [facility]-256 [id number] CLINICAL DOCUMENTATION CLARIFICATION FORM: POST DISCHARGE Addendum to original discharge summary date: ____ Late entry note date: __ DATE: 08/14/2019 ATTN: Ranjit Barclay Please exercise your independent, professional judgment in responding to the clarification form. Clinical indicators are provided on the bottom of this form for your review Please check appropriate box(s): [ ] AIDS /HIV Disease [* ] Asymptomatic HIV infection status [ ] Non-specific serologic evidence of HIV [ ] Other diagnosis [ ] Unable to determine In addition, please specify: Present on Admission (POA): [ * ] Yes [ ] No [ ] Unable to determine For continuity of documentation, please document condition throughout progress notes and discharge summary. Thank You. CLINICAL INDICATORS - SIGNS / SYMPTOMS / LABS Microbiology Stool Culture 08/03 Positive Clostridiodes difficile toxins Laboratory Immunology 08/04 CD5 cound 316, Total Lymphs/Cells Gated 0.6 PN Cardiology p4 07/31 HIV with undetectable CD4 count ID consult p1 08/04 Dr Charles Longstanding HIV infection for at least 20 years and has been on a regimen of Crixivan and Zidovudine ID consult p1 08/04 Dr Charles She has been very adherent to her regimen and has been followed by her primary physician with reportedly suppressed viral load as recently as a vivi months ago ID consult p1 08/04 Dr Charles She does not recall her CD4 cell count, but has not had any opportunistic infections in the past ID consult p1 08/04 Dr Charles She is in the ICU in post period and has develop C diff colitis [employer] ID consult p1 08/04 79-year old Female ID consult p1 08/04 HIV infection ID consult p1 08/04 C Difficile colitis TREATMENTS: AUG 27 IV Vancomycin 1gm AUG 27 IVF 1L AUG 27 Imodium 2mg po AUG 27 Epivir 150mg po BID AUG 27 Retrovir 300mg po BID Blood bank 07/31 - RBC transfusion Ordered 08/03 [facility] culture ID consult 08/04 Chato Kiran Ordered 08/04 CD4 count (This form is maintained as a part of the permanent medical record) 2014 [employer], [employer]. All Rights Reserved [email or web address]
--- NOTE | 2019-08-14 12:04 | DIS ---
DATE OF ADMISSION: 07/29/2019 DATE OF DISCHARGE: 08/11/2019 PRINCIPAL DIAGNOSIS: Left main coronary artery disease. SECONDARY DIAGNOSES: Clostridium difficile colitis, debilitation, left carotid stenosis, human immunodeficiency virus with undetectable viral load. HISTORY OF PRESENT ILLNESS AND HOSPITAL COURSE: The patient is a 79-year-old woman, who recently began developing chest discomfort on ambulation that she described as heaviness and associated with shortness of breath. Echocardiography suggested normal ejection fraction, although on stress testing, her resting and stress ejection fractions were quite similar at 48% to 49%. Her stress test also showed an akinetic apex associated with a fixed defect and a reversible defect in her inferior wall. Cardiac catheterization demonstrated about 60% stenosis in the left main and 80% lesion in her proximal LAD and an occluded right coronary artery. She underwent 4-vessel coronary artery bypass procedure on 07/31/2019, utilizing a left internal mammary artery to LAD and separate reverse greater saphenous vein grafts to her first diagonal, to her obtuse marginal, and to the PDA. She was somewhat slow to wake up enough to pass the ventilator wean, although neurologically, she seemed to be intact other than her level of consciousness. She was successfully extubated about 8:00 in the morning on postoperative day #1. She had a brief run of atrial fibrillation that converted with Cardizem. She had marginal hemoglobin at 7.3 and felt quite weak and was transfused for blood loss anemia superimposed on a preexisting macrocytic anemia and was started on low-dose Lopressor. She was initially started on oral amiodarone, but that was discontinued because of concerns about drug interactions with her antivirals. She began having fairly heavy diarrhea on the night of postoperative day 3, and that proved to be positive for Clostridium difficile toxin. She was started on oral vancomycin and Flagyl. It was several days, however, for her diarrhea began to valerie. She was rather weak from all this. Family requested inpatient rehabilitation transfer and they were not open to the option of care home unit. Initially, her insurance company denied coverage for rehab transfer, but reversed that decision upon appeal, and she was discharged to the rehab facility on postoperative day 11. The plan will be that when she is adequately recovered from her open heart surgery, she will undergo CT angiography to further evaluate her asymptomatic left carotid stenosis associated with internal carotid velocities of around 255 or 260 cm/second with a ratio of around 2.7. Job ID: [id number]
== END 2019-08-11 16:20 | DRG 234 ==
LOC: CCL 05:59 → 2NO 14:50 → CCL 07-29 01:51 → 2NO 07-29 03:10 → CCU 07-31 08:46 → 2NO 08-04 17:59
PROVIDERS: ADMIT Internal Medicine Cardiovascular Disease; ATTEND Internal Medicine Cardiovascular Disease
PROC: 4A023N7 Measurement of Cardiac Sampling and Pressure, Left Heart, Percutaneous Approach (ICD-10-PCS; 2019-07-28)
PROC: B2111ZZ Fluoroscopy of Multiple Coronary Arteries using Low Osmolar Contrast (ICD-10-PCS; 2019-07-28)
PROC: B2151ZZ Fluoroscopy of Left Heart using Low Osmolar Contrast (ICD-10-PCS; 2019-07-28)
PROC: 3E043XZ Introduction of Vasopressor into Central Vein, Percutaneous Approach (ICD-10-PCS; 2019-07-28)
PROC: 021209W Bypass Coronary Artery, Three Arteries from Aorta with Autologous Venous Tissue, Open Approach (ICD-10-PCS; principal; 2019-07-31)
PROC: 02100Z9 Bypass Coronary Artery, One Artery from Left Internal Mammary, Open Approach (ICD-10-PCS; 2019-07-31)
PROC: 06BQ0ZZ Excision of Left Saphenous Vein, Open Approach (ICD-10-PCS; 2019-07-31)
PROC: 5A1221Z Performance of Cardiac Output, Continuous (ICD-10-PCS; 2019-07-31)
PROC: 30233N1 Transfusion of Nonautologous Red Blood Cells into Peripheral Vein, Percutaneous Approach (ICD-10-PCS; 2019-07-31)
DX: I25.110 Atherosclerotic heart disease of native coronary artery with unstable angina pectoris (principal); A04.72 Enterocolitis due to Clostridium difficile, not specified as recurrent; J90 Pleural effusion, not elsewhere classified; I48.91 Unspecified atrial fibrillation; D50.9 Iron deficiency anemia, unspecified; Z21 Asymptomatic human immunodeficiency virus [HIV] infection status; F32.9 Major depressive disorder, single episode, unspecified; Z90.49 Acquired absence of other specified parts of digestive tract; Z28.21 Immunization not carried out because of patient refusal; Z88.0 Allergy status to penicillin; Z79.899 Other long term (current) drug therapy; Z79.82 Long term (current) use of aspirin
CPT/HCPCS: 36415; 36416; 36430; 71045; 71046; 80048; 80053; 80061; 82607; 82728; 82746; 82805; 83540; 83550; 85025; 85048; 85610; 85730; 86361; 86706; 86708; 86803; 86850; 86900; 86901; 87324; 87340; 87449; 87493; 87536; 93005; 93010; 93458; 93798; 93880; 94002; 94003; 94150; 99152; 99153; C1769; J1642; J1644; J1650; J1815; J1940; J2001; J2250; J2270; J2405; J2440; J2704; J2720; J3010; J3370; J3475; J3480; J3490; P9016; P9045; Q9967; S0017; S0028

== ENCOUNTER 2021-05-29 16:43 | Inpatient (IN) | payer MEDICARE ==
[2021-05-29] MEDS ORDERED: Morphine 4 MG/ML VIAL ONE (17:03)
[2021-05-29 17:48] LABS: ALT (SGPT) 25 U/L (8-55); AST (SGOT) 23 U/L (5-34); Alkaline Phosphatase 122 U/L (40-110); Anion Gap 16 mmol/L (10-20); BUN (Urea Nitrogen) 36 mg/dL (9.8-20.1); Bilirubin, Total 1.6 mg/dL (0.2-1.2); Calc. Creatinine Clearance 0 mL/min (70-130); Calcium 8.8 mg/dL (7.8-10.44); Carbon Dioxide 21 mmol/L (23-31); Chloride 104 mmol/L (98-107); Glucose 192 mg/dL (83-110); Lipase 33 U/L (8-78); Potassium 4.3 mmol/L (3.5-5.1); Sodium 137 mmol/L (136-145)
[2021-05-29 18:06] LABS: #Lymphocytes 0.4 thou/uL (1.20-3.40); #Monocytes 0.6 thou/uL (0.11-0.59); #Neutrophils 10.2 thou/uL (1.40-6.50); %Basophils 0.1 % (0.0-1.0); %Eosinophils 0.2 % (0.0-10.0); %Lymphocytes 3.9 % (21.0-51.0); %Monocytes 5.2 % (0.0-10.0); %Neutrophils 90.6 % (42.0-75.0); Hemoglobin 12.7 g/dL (12.0-16.0); Mean Corpuscular HGB CONC 34.7 g/dL (32.0-36.0); Mean Corpuscular Hemoglobin 33.4 pg (27.0-31.0); Mean Corpuscular Volume 96.5 fL (78.0-98.0); Mean Platelet Volume 6.9 fL (7.4-10.4); Platelet Count 154 thou/uL (130-400); RBC Distribution Width 11.9 % (11.5-14.5); Red Blood Cell (RBC) Count 3.79 mill/uL (4.20-5.40); White Blood Cell (WBC) Count 11.2 thou/uL (4.8-10.8)
[2021-05-29] MEDS ORDERED: Sodium Chloride 0.9% 100 ML ONE (18:11)
[2021-05-29] MEDS ORDERED: Piperacillin/Tazobactam 3.375 GM VIAL ONE (18:11)
[2021-05-29 19:01] LABS: Bacteria/HPF 4+ HPF (None Seen); Bilirubin Negative (Negative); Blood, Urine 3+ (Negative); Clarity Extra Turbid (Clear); Glucose, Urine (Dipstick) Normal (Negative); Ketone, Urine Negative (Negative); Leukocyte 500 Leu/uL (Negative); Nitrite Negative (Negative); Protein, Urine (Dipstick) 70 mg/dL (Neg-Trace); RBC/HPF Greater than 50 HPF (0-3); Specific Gravity, Urine 1.012 (1.002-1.036); Squamous Epithelial None Seen HPF (0-3); Urobilinogen Normal mg/dL (Less than 2); WBC/HPF Greater than 50 HPF (0-3); pH, Urine 5.5 (5.0-9.0)
[2021-05-29] MEDS ORDERED: Vancomycin 1 GM/200 ML BAG ONE (20:00)
[2021-05-29 22:55] VITALS: BMI 20.5
[2021-05-30] MEDS: Sodium Chloride 0.9% 1,000 ML IV SCH ×2 (01:05→17:59)
[2021-05-30] MEDS ORDERED: Cefepime 1 GM in Sodium Chloride 0.9% 100 ML IVPB SCH (02:00)
[2021-05-30 06:30] LABS: #Lymphocytes 0.7 thou/uL (1.20-3.40); #Monocytes 0.6 thou/uL (0.11-0.59); #Neutrophils 10.2 thou/uL (1.40-6.50); %Eosinophils 0.4 % (0.0-10.0); %Lymphocytes 5.7 % (21.0-51.0); %Monocytes 5.5 % (0.0-10.0); %Neutrophils 88.4 % (42.0-75.0); Hemoglobin 11.5 g/dL (12.0-16.0); Mean Corpuscular HGB CONC 34.8 g/dL (32.0-36.0); Mean Corpuscular Hemoglobin 33.5 pg (27.0-31.0); Mean Corpuscular Volume 96.3 fL (78.0-98.0); Mean Platelet Volume 6.9 fL (7.4-10.4); Platelet Count 143 thou/uL (130-400); RBC Distribution Width 11.9 % (11.5-14.5); Red Blood Cell (RBC) Count 3.44 mill/uL (4.20-5.40); White Blood Cell (WBC) Count 11.6 thou/uL (4.8-10.8)
[2021-05-30 06:45] LABS: Anion Gap 14 mmol/L (10-20); BUN (Urea Nitrogen) 32 mg/dL (9.8-20.1); Calc. Creatinine Clearance 23 mL/min (70-130); Calcium 8.5 mg/dL (7.8-10.44); Carbon Dioxide 20 mmol/L (23-31); Chloride 107 mmol/L (98-107); Glucose 165 mg/dL (83-110); Potassium 3.7 mmol/L (3.5-5.1); Sodium 137 mmol/L (136-145)
[2021-05-30 06:47] LABS: ALT (SGPT) 24 U/L (8-55); AST (SGOT) 24 U/L (5-34); Albumin 3.3 g/dL (3.4-4.8); Alkaline Phosphatase 92 U/L (40-110); Bilirubin, Direct 0.5 mg/dL (0.1-0.3); Bilirubin, Total 1.2 mg/dL (0.2-1.2); Protein, Total 6.5 g/dL (5.8-8.1)
[2021-05-30] MEDS: Atorvastatin Calcium 10 MG TAB PO SCH (08:18)
[2021-05-30] MEDS: Metoprolol Tartrate 25 MG TAB PO SCH ×2 (08:18→21:05)
[2021-05-30] MEDS ORDERED: Aspirin Chewable 81 MG TAB PO SCH (09:00)
[2021-05-30] MEDS: Ondansetron PF 4 MG/2 ML Vial IVP PRN (12:02)
[2021-05-30 13:05] LABS: SARS-CoV-2 PCR by NAA Not Detected (NotDetected)
[2021-05-30] MEDS ORDERED: Meropenem 1 GM in Sodium Chloride 0.9% 100 ML IVPB SCH (14:45)
[2021-05-30] MEDS: Acetaminophen 325 MG TAB PO PRN (17:48)
[2021-05-31] MEDS: Ondansetron PF 4 MG/2 ML Vial IVP PRN ×2 (01:04→18:24)
[2021-05-31] MEDS: Acetaminophen 325 MG TAB PO PRN (01:04)
[2021-05-31] MEDS ORDERED: Meropenem 500 MG in Sodium Chloride 0.9% 100 ML IVPB SCH (03:00)
[2021-05-31] MEDS: Sodium Chloride 0.9% 1,000 ML IV SCH ×2 (03:09→13:26)
[2021-05-31] MEDS ORDERED: Acetaminophen 325 MG TAB PO SCH (03:45)
[2021-05-31 06:34] LABS: #Lymphocytes 0.3 thou/uL (1.20-3.40); #Monocytes 0.2 thou/uL (0.11-0.59); #Neutrophils 5.4 thou/uL (1.40-6.50); %Basophils 0.1 % (0.0-1.0); %Eosinophils 0.1 % (0.0-10.0); %Lymphocytes 5.2 % (21.0-51.0); %Monocytes 3.8 % (0.0-10.0); %Neutrophils 90.7 % (42.0-75.0); Hemoglobin 9.8 g/dL (12.0-16.0); Mean Corpuscular HGB CONC 34.6 g/dL (32.0-36.0); Mean Corpuscular Hemoglobin 34.2 pg (27.0-31.0); Mean Corpuscular Volume 98.8 fL (78.0-98.0); Mean Platelet Volume 6.9 fL (7.4-10.4); Platelet Count 127 thou/uL (130-400); Red Blood Cell (RBC) Count 2.86 mill/uL (4.20-5.40)
[2021-05-31 07:03] LABS: Anion Gap 12 mmol/L (10-20); BUN (Urea Nitrogen) 30 mg/dL (9.8-20.1); Calc. Creatinine Clearance 23 mL/min (70-130); Calcium 8.5 mg/dL (7.8-10.44); Carbon Dioxide 19 mmol/L (23-31); Chloride 109 mmol/L (98-107); Glucose 176 mg/dL (83-110); Potassium 3.5 mmol/L (3.5-5.1); Sodium 136 mmol/L (136-145)
[2021-05-31] MEDS: Metoprolol Tartrate 25 MG TAB PO SCH ×2 (08:31→20:55)
[2021-05-31] MEDS: Aspirin 81 mg Enteric Coated Tablet PO SCH (08:32)
[2021-05-31] MEDS: Atorvastatin Calcium 10 MG TAB PO SCH (08:32)
[2021-06-01 06:29] LABS: #Eosinphils 0.1 thou/uL (0.0-0.7); #Lymphocytes 0.6 thou/uL (1.20-3.40); #Monocytes 0.4 thou/uL (0.11-0.59); #Neutrophils 4.1 thou/uL (1.40-6.50); %Basophils 0.2 % (0.0-1.0); %Eosinophils 1.3 % (0.0-10.0); %Monocytes 6.8 % (0.0-10.0); %Neutrophils 79.7 % (42.0-75.0); Hemoglobin 10.3 g/dL (12.0-16.0); Mean Corpuscular HGB CONC 32.9 g/dL (32.0-36.0); Mean Corpuscular Hemoglobin 31.9 pg (27.0-31.0); Mean Platelet Volume 6.8 fL (7.4-10.4); Platelet Count 157 thou/uL (130-400); RBC Distribution Width 11.7 % (11.5-14.5); Red Blood Cell (RBC) Count 3.22 mill/uL (4.20-5.40); White Blood Cell (WBC) Count 5.1 thou/uL (4.8-10.8)
[2021-06-01 06:47] LABS: Anion Gap 10 mmol/L (10-20); BUN (Urea Nitrogen) 27 mg/dL (9.8-20.1); Calc. Creatinine Clearance 27 mL/min (70-130); Carbon Dioxide 23 mmol/L (23-31); Chloride 108 mmol/L (98-107); Glucose 115 mg/dL (83-110); Potassium 3.8 mmol/L (3.5-5.1); Sodium 137 mmol/L (136-145)
[2021-06-01 07:14] LABS: Thyroid Stimulating Hormone 1.2086 uIU/mL (0.35-4.94)
[2021-06-01] MEDS ORDERED: Cyanocobalamin 1000 MCG/ML VIAL IM SCH (09:00)
[2021-06-01] MEDS: Cyanocobalamin (Vitamin B-12) 1,000 MCG TAB PO SCH (10:05)
[2021-06-01] MEDS: Metoprolol Tartrate 25 MG TAB PO SCH ×2 (10:05→21:12)
[2021-06-01] MEDS: Aspirin 81 mg Enteric Coated Tablet PO SCH (10:05)
[2021-06-01] MEDS: Atorvastatin Calcium 10 MG TAB PO SCH (10:05)
[2021-06-02] MEDS: Aspirin 81 mg Enteric Coated Tablet PO SCH (08:40)
[2021-06-02] MEDS: Metoprolol Tartrate 25 MG TAB PO SCH ×2 (08:40→20:23)
[2021-06-02] MEDS: Atorvastatin Calcium 10 MG TAB PO SCH (08:40)
[2021-06-02] MEDS: Cyanocobalamin (Vitamin B-12) 1,000 MCG TAB PO SCH (08:41)
[2021-06-03] MEDS: Cyanocobalamin (Vitamin B-12) 1,000 MCG TAB PO SCH (09:35)
[2021-06-03] MEDS: Aspirin 81 mg Enteric Coated Tablet PO SCH (09:35)
[2021-06-03] MEDS: Atorvastatin Calcium 10 MG TAB PO SCH (09:35)
[2021-06-03] MEDS: Metoprolol Tartrate 25 MG TAB PO SCH ×2 (09:35→20:39)
[2021-06-04] MEDS: Atorvastatin Calcium 10 MG TAB PO SCH (09:00)
[2021-06-04] MEDS: Aspirin 81 mg Enteric Coated Tablet PO SCH (09:00)
[2021-06-04] MEDS: Metoprolol Tartrate 25 MG TAB PO SCH ×2 (09:00→20:19)
[2021-06-04] MEDS: Cyanocobalamin (Vitamin B-12) 1,000 MCG TAB PO SCH (09:00)
[2021-06-05] MEDS: Metoprolol Tartrate 25 MG TAB PO SCH ×2 (08:30→20:20)
[2021-06-05] MEDS: Atorvastatin Calcium 10 MG TAB PO SCH (08:30)
[2021-06-05] MEDS: Cyanocobalamin (Vitamin B-12) 1,000 MCG TAB PO SCH (08:30)
[2021-06-05] MEDS: Aspirin 81 mg Enteric Coated Tablet PO SCH (08:30)
[2021-06-06] MEDS: Cyanocobalamin (Vitamin B-12) 1,000 MCG TAB PO SCH (08:45)
[2021-06-06] MEDS: Metoprolol Tartrate 25 MG TAB PO SCH ×2 (08:45→22:07)
[2021-06-06] MEDS: Aspirin 81 mg Enteric Coated Tablet PO SCH (08:45)
[2021-06-06] MEDS: Atorvastatin Calcium 10 MG TAB PO SCH (08:45)
[2021-06-07] MEDS: Atorvastatin Calcium 10 MG TAB PO SCH (09:05)
[2021-06-07] MEDS: Aspirin 81 mg Enteric Coated Tablet PO SCH (09:05)
[2021-06-07] MEDS: Cyanocobalamin (Vitamin B-12) 1,000 MCG TAB PO SCH (09:05)
[2021-06-07] MEDS: Metoprolol Tartrate 25 MG TAB PO SCH ×2 (09:06→20:25)
[2021-06-07 13:55] LABS: SARS-CoV-2 PCR by NAA Not Detected (NotDetected)
[2021-06-08] MEDS: Aspirin 81 mg Enteric Coated Tablet PO SCH (08:18)
[2021-06-08] MEDS: Metoprolol Tartrate 25 MG TAB PO SCH (08:18)
[2021-06-08] MEDS: Atorvastatin Calcium 10 MG TAB PO SCH (08:18)
[2021-06-08] MEDS: Cyanocobalamin (Vitamin B-12) 1,000 MCG TAB PO SCH (08:19)
[2021-06-08 08:52] VITALS: BP 135/81; TEMP 97.9
== END 2021-06-08 15:44 | disposition home or self-care (01) | DRG 975 ==
LOC: ERS 16:43 → T4-B 20:10
PROVIDERS: ADMIT Internal Medicine; ATTEND Family Medicine
DX: A41.51 Sepsis due to Escherichia coli [E. coli] (principal); N13.6 Pyonephrosis; Z20.822 Contact with and (suspected) exposure to COVID-19; B20 Human immunodeficiency virus [HIV] disease; N17.9 Acute kidney failure, unspecified; E87.2 Acidosis; N18.4 Chronic kidney disease, stage 4 (severe); N20.0 Calculus of kidney; Z95.1 Presence of aortocoronary bypass graft; I12.9 Hypertensive chronic kidney disease with stage 1 through stage 4 chronic kidney disease, or unspecified chronic kidney disease; I25.10 Atherosclerotic heart disease of native coronary artery without angina pectoris; D63.1 Anemia in chronic kidney disease; F32.A Depression, unspecified; D51.0 Vitamin B12 deficiency anemia due to intrinsic factor deficiency; Z90.49 Acquired absence of other specified parts of digestive tract; Z88.0 Allergy status to penicillin; Z88.8 Allergy status to other drugs, medicaments and biological substances; Z79.82 Long term (current) use of aspirin; Z79.899 Other long term (current) drug therapy
CPT/HCPCS: 36415; 51701; 71045; 74176; 76770; 80048; 80053; 80076; 81003; 81015; 82565; 82607; 82746; 83605; 83690; 84443; 84484; 85025; 86340; 87040; 87077; 87086; 87149; 87186; 93005; 96365; 96367; 96375; J0692; J2185; J2270; J2405; J2543; J3370; J3420; J3490; J7050; U0003; U0005

== ENCOUNTER 2022-03-06 11:22 | Outpatient (CLI) | payer MEDICARE | END 2022-03-06 11:23 | disposition home or self-care (01) | LOC: BICMAMMO 11:22 | PROVIDERS: ATTEND Internal Medicine | DX: Z12.31 Encounter for screening mammogram for malignant neoplasm of breast (principal) | CPT/HCPCS: 77063; 77067 ==

== ENCOUNTER 2022-05-14 19:36 | Inpatient (IN) | payer MEDICARE ==
[2022-05-14 20:36] LABS: #Eosinphils 0.1 thou/uL (0.0-0.7); #Lymphocytes 1.1 thou/uL (1.20-3.40); #Monocytes 0.5 thou/uL (0.11-0.59); #Neutrophils 3.3 thou/uL (1.40-6.50); %Basophils 0.2 % (0.0-1.0); %Eosinophils 1.6 % (0.0-10.0); %Lymphocytes 22.2 % (21.0-51.0); %Monocytes 9.1 % (0.0-10.0); %Neutrophils 66.8 % (42.0-75.0); Hemoglobin 10.8 g/dL (12.0-16.0); Mean Corpuscular HGB CONC 35.8 g/dL (32.0-36.0); Mean Corpuscular Hemoglobin 34.7 pg (27.0-31.0); Mean Corpuscular Volume 96.7 fl (78.0-98.0); Mean Platelet Volume 6.6 fL (7.4-10.4); Platelet Count 163 10x3/uL (130-400); RBC Distribution Width 12.2 % (11.5-14.5); Red Blood Cell (RBC) Count 3.11 mill/uL (4.20-5.40)
[2022-05-14 20:57] LABS: ALT (SGPT) 38 U/L (8-55); AST (SGOT) 45 U/L (5-34); Albumin 3.7 g/dL (3.4-4.8); Alkaline Phosphatase 83 U/L (40-110); Anion Gap 14 mmol/L (10-20); BUN (Urea Nitrogen) 29 mg/dL (9.8-20.1); Bilirubin, Total 0.8 mg/dL (0.2-1.2); Calc. Creatinine Clearance 0 mL/min (70-130); Calcium 9.2 mg/dL (7.8-10.44); Carbon Dioxide 22 mmol/L (23-31); Chloride 107 mmol/L (98-107); Estimated GFR 28; Globulin 2.9 g/dL (2.4-3.5); Glucose 124 mg/dL (83-110); Potassium 3.9 mmol/L (3.5-5.1); Protein, Total 6.6 g/dL (5.8-8.1); Sodium 139 mmol/L (136-145)
[2022-05-14] MEDS ORDERED: Morphine 4 MG/ML VIAL SLOW IVP PRN (21:24)
[2022-05-14] MEDS ORDERED: TETANUS, DIPHTHERIA TOX,ADULT (TDVAX) 0.5 ML VIAL IM ONE (21:24)
[2022-05-14] MEDS ORDERED: hydrALAZINE 20 MG/ML VIAL SLOW IVP PRN (21:24)
[2022-05-14] MEDS ORDERED: Ondansetron PF 4 MG/2 ML Vial IVP PRN (21:24)
[2022-05-14] MEDS ORDERED: Cyclobenzaprine 10 MG TAB PO PRN (21:27)
[2022-05-14] MEDS ORDERED: traMADol HCl 50 MG TAB PO PRN (21:27)
[2022-05-14 21:28] LABS: INR-International Normal Ratio 1.1; Prothrombin Time 14.5 sec (12.0-14.7)
[2022-05-14] MEDS ORDERED: Sodium Chloride 0.9% 1,000 ML IV SCH (21:30)
[2022-05-14] MEDS ORDERED: Morphine 4 MG/ML VIAL ONE (21:34)
[2022-05-14 21:52] LABS: PTT 21.8 sec (22.9-36.1)
[2022-05-14] MEDS ORDERED: traMADol HCl 50 MG TAB PO SCH (23:45)
[2022-05-14] MEDS: Acetaminophen 500 MG TAB PO SCH (23:55)
[2022-05-15 00:51] LABS: SARS-CoV-2 NAA Rapid Test Not Detected (NotDetected)
[2022-05-15 05:28] LABS: Bacteria/HPF None Seen HPF (None Seen); Bilirubin Negative (Negative); Blood, Urine Negative (Negative); CAUTI Indications for Culture Pelvic or flank pain; Clarity Clear (Clear); Glucose, Urine (Dipstick) Normal (Negative); Ketone, Urine Negative (Negative); Leukocyte Negative Leu/uL (Negative); Nitrite Negative (Negative); Protein, Urine (Dipstick) Negative (Neg-Trace); RBC/HPF 0-3 HPF (0-3); Specific Gravity, Urine 1.014 (1.002-1.036); Squamous Epithelial None Seen HPF (0-3); Urobilinogen Normal mg/dL (Less than 2); WBC/HPF 0-3 HPF (0-3)
[2022-05-15 05:31] LABS: Urine Culture Reflex No No
[2022-05-15 05:42] LABS: #Eosinphils 0.1 thou/uL (0.0-0.7); #Lymphocytes 1.5 thou/uL (1.20-3.40); #Monocytes 0.4 thou/uL (0.11-0.59); #Neutrophils 2.6 thou/uL (1.40-6.50); %Eosinophils 2.8 % (0.0-10.0); %Lymphocytes 32.4 % (21.0-51.0); %Monocytes 8.7 % (0.0-10.0); %Neutrophils 56.1 % (42.0-75.0); Mean Corpuscular HGB CONC 34.6 g/dL (32.0-36.0); Mean Corpuscular Hemoglobin 33.6 pg (27.0-31.0); Mean Corpuscular Volume 97.2 fl (78.0-98.0); Mean Platelet Volume 6.7 fL (7.4-10.4); Platelet Count 153 10x3/uL (130-400); RBC Distribution Width 12.3 % (11.5-14.5); Red Blood Cell (RBC) Count 2.97 mill/uL (4.20-5.40); White Blood Cell (WBC) Count 4.7 10x3/uL (4.8-10.8)
[2022-05-15] MEDS: Acetaminophen 500 MG TAB PO SCH ×3 (05:47→18:05)
[2022-05-15 06:03] LABS: Anion Gap 11 mmol/L (10-20); BUN (Urea Nitrogen) 26 mg/dL (9.8-20.1); Calc. Creatinine Clearance 29 mL/min (70-130); Calcium 8.5 mg/dL (7.8-10.44); Carbon Dioxide 23 mmol/L (23-31); Chloride 108 mmol/L (98-107); Estimated GFR 34; Glucose 115 mg/dL (83-110); Phosphorus 3.6 mg/dL (2.3-4.7); Potassium 3.8 mmol/L (3.5-5.1); Sodium 138 mmol/L (136-145)
[2022-05-15] MEDS ORDERED: Clindamycin/D5W 900 MG in Premix Bag 1 BAG IVPB SCH (07:30)
[2022-05-15] MEDS: Senokot S 8.6-50 MG TAB PO SCH ×3 (08:29→21:30)
[2022-05-15] MEDS: Metoprolol Tartrate 25 MG TAB PO SCH ×2 (08:29→21:33)
[2022-05-15] MEDS: Atorvastatin Calcium 10 MG TAB PO SCH (08:29)
[2022-05-15] MEDS: Multivitamin W/ Minerals 1 TAB PO SCH ×2 (08:29→08:37)
[2022-05-15] MEDS: Famotidine/PF 20 mg/2ml Vial SLOW IVP SCH (08:30)
[2022-05-15] MEDS: Polyethylene Glycol 3350 17 GM Packet PO SCH (08:37)
[2022-05-15] MEDS: traMADol HCl 50 MG TAB PO SCH ×2 (08:37→21:29)
[2022-05-15] MEDS ORDERED: PHOS-NAK 1 PKT PACK PO SCH (09:00)
[2022-05-15] MEDS ORDERED: PROPOFOL 200 MG/20 ML VIAL ONE (10:48)
[2022-05-15] MEDS ORDERED: Rocuronium Bromide 10 MG/ML (10ML VIAL) ONE (10:48)
[2022-05-15] MEDS ORDERED: Dexamethasone 20 MG/5 ML VIAL ONE (10:48)
[2022-05-15] MEDS ORDERED: Ondansetron PF 4 MG/2 ML Vial ONE ×2 (10:48→12:02)
[2022-05-15] MEDS ORDERED: Phenylephrine 10 MG/ML VIAL ONE (10:48)
[2022-05-15] MEDS ORDERED: Clindamycin/D5W 900 mg/50 ml Premix Bag ONE (10:54)
[2022-05-15] MEDS ORDERED: SUGAMMADEX SODIUM 200 MG/2 ML VIAL ONE (12:01)
[2022-05-15] MEDS ORDERED: FENTANYL 50 MCG/ML 1 ML VIAL SLOW IVP PRN (12:19)
[2022-05-15] MEDS ORDERED: Promethazine HCl 25 MG/ML VIAL IM PRN (12:19)
[2022-05-15] MEDS ORDERED: Promethazine HCl 25 MG/ML VIAL IVPB PRN (12:19)
[2022-05-15] MEDS ORDERED: Ondansetron HCl/PF 4 MG/2 ML Vial IVP PRN (12:19)
[2022-05-15] MEDS ORDERED: FENTANYL 50 MCG/ML 1 ML VIAL ONE (12:28)
[2022-05-15] MEDS: Clindamycin/D5W 900 MG in Premix Bag 1 BAG IVPB SCH ×2 (12:47→18:05)
[2022-05-16] MEDS: Acetaminophen 500 MG TAB PO SCH ×3 (00:39→12:05)
[2022-05-16] MEDS: (Bictegrav/Emtricit/Tenofov Ala [Biktarvy 50-200-25 Mg Tablet] PO SCH ×2 (00:40→09:41)
[2022-05-16 06:40] LABS: #Lymphocytes 1.1 thou/uL (1.20-3.40); #Monocytes 0.6 thou/uL (0.11-0.59); #Neutrophils 5.2 thou/uL (1.40-6.50); %Basophils 0.1 % (0.0-1.0); %Eosinophils 0.3 % (0.0-10.0); %Lymphocytes 15.8 % (21.0-51.0); %Monocytes 8.6 % (0.0-10.0); %Neutrophils 75.3 % (42.0-75.0); Hemoglobin 10.6 g/dL (12.0-16.0); Mean Corpuscular HGB CONC 33.4 g/dL (32.0-36.0); Mean Corpuscular Volume 98.6 fl (78.0-98.0); Mean Platelet Volume 6.8 fL (7.4-10.4); Platelet Count 152 10x3/uL (130-400); RBC Distribution Width 12.2 % (11.5-14.5); White Blood Cell (WBC) Count 6.9 10x3/uL (4.8-10.8)
[2022-05-16 07:03] LABS: Anion Gap 11 mmol/L (10-20); BUN (Urea Nitrogen) 20 mg/dL (9.8-20.1); Calc. Creatinine Clearance 33 mL/min (70-130); Calcium 8.4 mg/dL (7.8-10.44); Carbon Dioxide 22 mmol/L (23-31); Chloride 106 mmol/L (98-107); Estimated GFR 41; Glucose 129 mg/dL (83-110); Magnesium 1.9 mg/dL (1.6-2.6); Phosphorus 3.1 mg/dL (2.3-4.7); Potassium 4.2 mmol/L (3.5-5.1); Sodium 135 mmol/L (136-145)
[2022-05-16] MEDS: Polyethylene Glycol 3350 17 GM Packet PO SCH (09:39)
[2022-05-16] MEDS: Senokot S 8.6-50 MG TAB PO SCH ×2 (09:39→21:11)
[2022-05-16] MEDS: Famotidine/PF 20 mg/2ml Vial SLOW IVP SCH (09:39)
[2022-05-16] MEDS: Metoprolol Tartrate 25 MG TAB PO SCH ×2 (09:39→21:09)
[2022-05-16] MEDS: Atorvastatin Calcium 10 MG TAB PO SCH (09:39)
[2022-05-16] MEDS: Multivitamin W/ Minerals 1 TAB PO SCH (09:39)
[2022-05-16] MEDS: traMADol HCl 50 MG TAB PO SCH (09:40)
[2022-05-16] MEDS ORDERED: PHOS-NAK 1 PKT PACK PO SCH (11:30)
[2022-05-16] MEDS ORDERED: Acetaminophen/Codeine 30-300mg Tablet PO PRN (15:16)
[2022-05-16] MEDS: Acetaminophen/Codeine 30-300mg Tablet PO SCH (17:10)
[2022-05-16] MEDS: Acetaminophen 325 MG TAB PO SCH (17:12)
[2022-05-16] MEDS: Heparin 5,000 UNITS/ML VIAL SC SCH (21:11)
[2022-05-17] MEDS: Acetaminophen/Codeine 30-300mg Tablet PO SCH ×5 (00:27→23:21)
[2022-05-17] MEDS: Acetaminophen 325 MG TAB PO SCH ×5 (00:27→23:21)
[2022-05-17 08:05] LABS: #Eosinphils 0.1 thou/uL (0.0-0.7); #Lymphocytes 1.5 thou/uL (1.20-3.40); #Monocytes 0.6 thou/uL (0.11-0.59); #Neutrophils 4.1 thou/uL (1.40-6.50); %Eosinophils 1.8 % (0.0-10.0); %Neutrophils 65.2 % (42.0-75.0); Hemoglobin 10.7 g/dL (12.0-16.0); Mean Corpuscular HGB CONC 34.2 g/dL (32.0-36.0); Mean Corpuscular Hemoglobin 33.5 pg (27.0-31.0); Mean Platelet Volume 6.9 fL (7.4-10.4); Platelet Count 158 10x3/uL (130-400); RBC Distribution Width 12.4 % (11.5-14.5); Red Blood Cell (RBC) Count 3.18 mill/uL (4.20-5.40); White Blood Cell (WBC) Count 6.3 10x3/uL (4.8-10.8)
[2022-05-17 08:28] LABS: Anion Gap 12 mmol/L (10-20); BUN (Urea Nitrogen) 20 mg/dL (9.8-20.1); Calc. Creatinine Clearance 31 mL/min (70-130); Calcium 8.8 mg/dL (7.8-10.44); Carbon Dioxide 23 mmol/L (23-31); Chloride 105 mmol/L (98-107); Estimated GFR 37; Glucose 118 mg/dL (83-110); Magnesium 1.9 mg/dL (1.6-2.6); Phosphorus 2.8 mg/dL (2.3-4.7); Potassium 4.1 mmol/L (3.5-5.1); Sodium 136 mmol/L (136-145)
[2022-05-17] MEDS: Atorvastatin Calcium 10 MG TAB PO SCH (09:31)
[2022-05-17] MEDS: Famotidine/PF 20 mg/2ml Vial SLOW IVP SCH (09:31)
[2022-05-17] MEDS: Multivitamin W/ Minerals 1 TAB PO SCH (09:31)
[2022-05-17] MEDS: Senokot S 8.6-50 MG TAB PO SCH ×2 (09:31→20:29)
[2022-05-17] MEDS: (Bictegrav/Emtricit/Tenofov Ala [Biktarvy 50-200-25 Mg Tablet] PO SCH (09:31)
[2022-05-17] MEDS: Heparin 5,000 UNITS/ML VIAL SC SCH ×2 (09:32→20:29)
[2022-05-17] MEDS: Polyethylene Glycol 3350 17 GM Packet PO SCH (09:34)
[2022-05-17] MEDS: Metoprolol Tartrate 25 MG TAB PO SCH ×2 (09:35→20:25)
[2022-05-17] MEDS ORDERED: PHOS-NAK 1 PKT PACK PO SCH (12:45)
[2022-05-18] MEDS: Acetaminophen/Codeine 30-300mg Tablet PO SCH ×3 (07:15→17:17)
[2022-05-18] MEDS: Acetaminophen 325 MG TAB PO SCH ×3 (07:17→17:16)
[2022-05-18] MEDS: Metoprolol Tartrate 25 MG TAB PO SCH ×2 (07:55→21:50)
[2022-05-18] MEDS: Multivitamin W/ Minerals 1 TAB PO SCH (07:57)
[2022-05-18] MEDS: Senokot S 8.6-50 MG TAB PO SCH ×2 (07:57→21:50)
[2022-05-18] MEDS: Atorvastatin Calcium 10 MG TAB PO SCH (07:57)
[2022-05-18] MEDS: Famotidine/PF 20 mg/2ml Vial SLOW IVP SCH (07:57)
[2022-05-18] MEDS: (Bictegrav/Emtricit/Tenofov Ala [Biktarvy 50-200-25 Mg Tablet] PO SCH (07:57)
[2022-05-18] MEDS: Polyethylene Glycol 3350 17 GM Packet PO SCH (07:57)
[2022-05-18] MEDS: Heparin 5,000 UNITS/ML VIAL SC SCH ×2 (07:57→21:49)
[2022-05-18] MEDS ORDERED: Bisacodyl 10 MG SUPP PR PRN (19:36)
[2022-05-19] MEDS: Acetaminophen 325 MG TAB PO SCH ×4 (01:45→17:09)
[2022-05-19] MEDS: Acetaminophen/Codeine 30-300mg Tablet PO SCH ×4 (01:46→17:11)
[2022-05-19] MEDS: Multivitamin W/ Minerals 1 TAB PO SCH (08:07)
[2022-05-19] MEDS: Atorvastatin Calcium 10 MG TAB PO SCH (08:08)
[2022-05-19] MEDS: Heparin 5,000 UNITS/ML VIAL SC SCH ×2 (08:09→21:40)
[2022-05-19] MEDS: Metoprolol Tartrate 25 MG TAB PO SCH ×2 (08:09→21:40)
[2022-05-19] MEDS: Polyethylene Glycol 3350 17 GM Packet PO SCH (08:10)
[2022-05-19] MEDS: Senokot S 8.6-50 MG TAB PO SCH (08:10)
[2022-05-19] MEDS: (Bictegrav/Emtricit/Tenofov Ala [Biktarvy 50-200-25 Mg Tablet] PO SCH (08:11)
[2022-05-19] MEDS: Gabapentin 100 MG CAP PO SCH ×2 (14:39→21:40)
[2022-05-20] MEDS: Senokot S 8.6-50 MG TAB PO SCH ×3 (01:36→20:35)
[2022-05-20] MEDS: Acetaminophen/Codeine 30-300mg Tablet PO SCH ×5 (01:37→22:38)
[2022-05-20] MEDS: Acetaminophen 325 MG TAB PO SCH ×5 (01:37→23:13)
[2022-05-20 05:55] LABS: Anion Gap 13 mmol/L (10-20); BUN (Urea Nitrogen) 31 mg/dL (9.8-20.1); Calc. Creatinine Clearance 27 mL/min (70-130); Carbon Dioxide 21 mmol/L (23-31); Chloride 104 mmol/L (98-107); Estimated GFR 32; Glucose 120 mg/dL (83-110); Magnesium 2.1 mg/dL (1.6-2.6); Phosphorus 3.7 mg/dL (2.3-4.7); Potassium 4.4 mmol/L (3.5-5.1); Sodium 134 mmol/L (136-145)
[2022-05-20] MEDS ORDERED: Bisacodyl 10 MG SUPP PR SCH (07:00)
[2022-05-20] MEDS: Atorvastatin Calcium 10 MG TAB PO SCH (09:14)
[2022-05-20] MEDS: Multivitamin W/ Minerals 1 TAB PO SCH (09:15)
[2022-05-20] MEDS: Metoprolol Tartrate 25 MG TAB PO SCH ×2 (09:15→20:35)
[2022-05-20] MEDS: Gabapentin 100 MG CAP PO SCH ×3 (09:16→20:35)
[2022-05-20] MEDS: Heparin 5,000 UNITS/ML VIAL SC SCH ×2 (09:17→20:34)
[2022-05-20] MEDS: Polyethylene Glycol 3350 17 GM Packet PO SCH (09:18)
[2022-05-20] MEDS: (Bictegrav/Emtricit/Tenofov Ala [Biktarvy 50-200-25 Mg Tablet] PO SCH (09:24)
[2022-05-21] MEDS: Acetaminophen 325 MG TAB PO SCH ×4 (05:54→23:25)
[2022-05-21] MEDS: Atorvastatin Calcium 10 MG TAB PO SCH (10:17)
[2022-05-21] MEDS: Multivitamin W/ Minerals 1 TAB PO SCH (10:17)
[2022-05-21] MEDS: Heparin 5,000 UNITS/ML VIAL SC SCH ×2 (10:17→21:17)
[2022-05-21] MEDS: Gabapentin 100 MG CAP PO SCH ×3 (10:34→21:16)
[2022-05-21] MEDS: Metoprolol Tartrate 25 MG TAB PO SCH ×2 (10:34→21:18)
[2022-05-21] MEDS: Senokot S 8.6-50 MG TAB PO SCH ×2 (10:35→21:16)
[2022-05-21] MEDS: Polyethylene Glycol 3350 17 GM Packet PO SCH (10:35)
[2022-05-21] MEDS: (Bictegrav/Emtricit/Tenofov Ala [Biktarvy 50-200-25 Mg Tablet] PO SCH (10:39)
[2022-05-21] MEDS: Acetaminophen/Codeine 30-300mg Tablet PO SCH ×3 (12:47→23:25)
[2022-05-22] MEDS: Acetaminophen 325 MG TAB PO SCH ×2 (05:15→18:20)
[2022-05-22] MEDS: Acetaminophen/Codeine 30-300mg Tablet PO SCH ×3 (05:16→18:21)
[2022-05-22] MEDS: Senokot S 8.6-50 MG TAB PO SCH (11:42)
[2022-05-22] MEDS: Metoprolol Tartrate 25 MG TAB PO SCH (11:42)
[2022-05-22] MEDS: Heparin 5,000 UNITS/ML VIAL SC SCH (11:43)
[2022-05-22] MEDS: Multivitamin W/ Minerals 1 TAB PO SCH (11:43)
[2022-05-22] MEDS: Gabapentin 100 MG CAP PO SCH ×2 (11:43→18:22)
[2022-05-22] MEDS: Polyethylene Glycol 3350 17 GM Packet PO SCH (11:44)
[2022-05-22] MEDS: Atorvastatin Calcium 10 MG TAB PO SCH (11:45)
[2022-05-22 13:15] VITALS: TEMP 98.1
[2022-05-22 15:50] VITALS: BP 117/79
[2022-05-22] MEDS: (Bictegrav/Emtricit/Tenofov Ala [Biktarvy 50-200-25 Mg Tablet] PO SCH (18:20)
== END 2022-05-22 17:45 | DRG 522 ==
LOC: ERS 19:36 → SURG B 21:24 → OBSVTOIN 21:24
PROVIDERS: ADMIT Surgery; ATTEND Surgery
PROC: 0SRR0JZ Replacement of Right Hip Joint, Femoral Surface with Synthetic Substitute, Open Approach (ICD-10-PCS; principal; 2022-05-15)
DX: S72.091A Other fracture of head and neck of right femur, initial encounter for closed fracture (principal); N17.9 Acute kidney failure, unspecified; Z20.822 Contact with and (suspected) exposure to COVID-19; Z21 Asymptomatic human immunodeficiency virus [HIV] infection status; N18.30 Chronic kidney disease, stage 3 unspecified; I25.10 Atherosclerotic heart disease of native coronary artery without angina pectoris; F32.A Depression, unspecified; W01.0XXA Fall on same level from slipping, tripping and stumbling without subsequent striking against object, initial encounter; Z95.1 Presence of aortocoronary bypass graft; Y92.009 Unspecified place in unspecified non-institutional (private) residence as the place of occurrence of the external cause; Z98.890 Other specified postprocedural states; Z90.710 Acquired absence of both cervix and uterus; Z79.82 Long term (current) use of aspirin; Z88.0 Allergy status to penicillin; Z88.8 Allergy status to other drugs, medicaments and biological substances
CPT/HCPCS: 36415; 71045; 72170; 80048; 80053; 81001; 83735; 84100; 85025; 85610; 85730; 86850; 86900; 86901; 90714; 93005; 96374; C1713; C1776; G0390; J1100; J1644; J2270; J2370; J2405; J2704; J3010; J3490; J7050; S0028; U0002

== ENCOUNTER 2024-04-02 17:02 | Inpatient (IN) | payer MEDICARE ==
[2024-04-02] MEDS ORDERED: cefTRIAXone (ROCEPHIN) 2 GM VIAL ONE (17:20)
[2024-04-02] MEDS ORDERED: Sodium Chloride 0.9% 100 ML ONE (17:20)
[2024-04-02] MEDS ORDERED: Ondansetron PF 4 MG/2 ML Vial ONE (17:26)
[2024-04-02 17:42] LABS: #Basophils Less than 0.03 10x3/uL (0.0-0.2); #Eosinophils Less than 0.03 10x3/uL (0.0-0.7); %Basophils 0.2 % (0.0-1.0); %Eosinophils 0.1 % (0.0-10.0); %Monocytes 5.6 % (0.0-10.0); %Neutrophils 87.5 % (42.0-75.0); Hematocrit 37.2 % (36.0-47.0); Hemoglobin 12.2 g/dL (12.0-16.0); Mean Corpuscular HGB CONC 32.8 g/dL (32.0-36.0); Mean Corpuscular Hemoglobin 32.1 pg (27.0-31.0); Mean Corpuscular Volume 97.9 fL (78.0-98.0); Mean Platelet Volume 8.8 fL (7.4-10.4); Platelet Count 223 10x3/uL (130-400); RBC Distribution Width 12.8 % (11.5-14.5)
[2024-04-02] MEDS ORDERED: Acetaminophen 500 MG TAB ONE (17:54)
[2024-04-02 18:04] LABS: ALT (SGPT) 18 U/L (8-55); AST (SGOT) 25 U/L (5-34); Albumin 3.8 g/dL (3.4-4.8); Alkaline Phosphatase 113 U/L (40-110); Anion Gap 14 mmol/L (10-20); BUN (Urea Nitrogen) 23 mg/dL (9.8-20.1); Bilirubin, Total 1.1 mg/dL (0.2-1.2); Calc. Creatinine Clearance 0 mL/min (70-130); Calcium 9.9 mg/dL (7.8-10.44); Carbon Dioxide 24 mmol/L (23-31); Chloride 102 mmol/L (98-107); Estimated GFR 33; Globulin 4.2 g/dL (2.4-3.5); Glucose 145 mg/dL (83-110); Potassium 4.2 mmol/L (3.5-5.1); Sodium 136 mmol/L (136-145)
[2024-04-02] MEDS ORDERED: Ondansetron PF 4 MG/2 ML Vial IVP PRN (19:29)
[2024-04-02] MEDS ORDERED: Acetaminophen 325 MG TAB PO PRN (19:29)
[2024-04-02] MEDS ORDERED: Ondansetron ODT 4 MG TAB PO PRN (19:29)
[2024-04-02 20:39] LABS: Bacteria/HPF None Seen HPF (None Seen); Bilirubin Negative (Negative); Blood, Urine Negative (Negative); CAUTI Indications for Culture Dysuria,urgency,freq; Clarity Turbid (Clear); Glucose, Urine (Dipstick) Normal (Negative); Ketone, Urine Negative (Negative); Leukocyte 500 Leu/uL (Negative); Nitrite Negative (Negative); Protein, Urine (Dipstick) 10 mg/dL (Neg-Trace); RBC/HPF 0-3 HPF (0-3); Squamous Epithelial 21-50 HPF (0-3); Urobilinogen Normal mg/dL (Less than 2); WBC/HPF 21-50 HPF (0-3)
[2024-04-02 20:40] LABS: Urine Culture Reflex Yes Yes
[2024-04-02 20:51] LABS: Lactic Acid 1.21 mmol/L (0.5-2.2)
[2024-04-02 20:52] VITALS: BMI 21.1
[2024-04-02] MEDS ORDERED: Vancomycin Dose by Levels Sliding Scale (Wt <71) FS SCH (21:00)
[2024-04-02] MEDS: Vancomycin (BATCH) 1.75 GM in Premix 1 BAG IVPB SCH (21:05)
[2024-04-02] MEDS: Cefepime 2 GM in Sodium Chloride 0.9% 100 ML IVPB SCH (21:47)
[2024-04-02] MEDS: Heparin 5,000 UNITS/ML VIAL SC SCH (21:47)
[2024-04-03] MEDS: Sodium Chloride 0.9% 1,000 ML IV SCH (00:12)
[2024-04-03] MEDS: Cefepime 1 GM in Sodium Chloride 0.9% 100 ML IVPB SCH (08:43)
[2024-04-03] MEDS: Metoprolol Tartrate 25 MG TAB PO SCH (08:51)
[2024-04-03] MEDS: Allopurinol 100 MG TAB PO SCH (08:51)
[2024-04-03] MEDS ORDERED: [UNRECOGNIZED DRUG - OTHER] PO SCH (09:00)
[2024-04-03] MEDS ORDERED: [UNRECOGNIZED DRUG - OTHER] PO SCH (09:00)
[2024-04-03] MEDS ORDERED: Magnevist 469MG/ML 20 ML VIAL ONE (10:11)
[2024-04-03 13:53] LABS: #Basophils Less than 0.03 10x3/uL (0.0-0.2); #Eosinophils Less than 0.03 10x3/uL (0.0-0.7); %Basophils 0.2 % (0.0-1.0); %Eosinophils 0.5 % (0.0-10.0); %Lymphocytes 18.7 % (21.0-51.0); %Neutrophils 71.4 % (42.0-75.0); Hematocrit 30.7 % (36.0-47.0); Hemoglobin 10.1 g/dL (12.0-16.0); Mean Corpuscular HGB CONC 32.9 g/dL (32.0-36.0); Mean Corpuscular Hemoglobin 32.1 pg (27.0-31.0); Mean Corpuscular Volume 97.5 fL (78.0-98.0); Mean Platelet Volume 8.6 fL (7.4-10.4); Platelet Count 160 10x3/uL (130-400); Red Blood Cell (RBC) Count 3.15 mill/uL (4.20-5.40)
[2024-04-03 14:17] LABS: Anion Gap 10 mmol/L (10-20); BUN (Urea Nitrogen) 17 mg/dL (9.8-20.1); Calc. Creatinine Clearance 30 mL/min (70-130); Calcium 8.9 mg/dL (7.8-10.44); Carbon Dioxide 26 mmol/L (23-31); Chloride 107 mmol/L (98-107); Estimated GFR 37; Glucose 113 mg/dL (83-110); Potassium 3.8 mmol/L (3.5-5.1); Sodium 139 mmol/L (136-145)
[2024-04-03] MEDS: Aspirin Chewable 81 MG TAB PO SCH (15:11)
[2024-04-03 17:45] LABS: Vancomycin, Trough 10.4 ug/mL
[2024-04-03] MEDS: Vancomycin HCl 500 MG in Sodium Chloride 0.9% 100 ML IV SCH (18:34)
[2024-04-03] MEDS ORDERED: Atorvastatin Calcium 10 MG TAB PO SCH (21:00)
[2024-04-03] MEDS: Atorvastatin Calcium 20 MG TAB PO SCH (21:40)
[2024-04-04 06:14] LABS: #Basophils 0.03 10x3/uL (0.0-0.2); %Basophils 0.6 % (0.0-1.0); %Eosinophils 2.3 % (0.0-10.0); %Lymphocytes 22.6 % (21.0-51.0); %Monocytes 12.4 % (0.0-10.0); %Neutrophils 61.9 % (42.0-75.0); Hematocrit 31.6 % (36.0-47.0); Hemoglobin 10.3 g/dL (12.0-16.0); Mean Corpuscular HGB CONC 32.6 g/dL (32.0-36.0); Mean Corpuscular Hemoglobin 31.9 pg (27.0-31.0); Mean Corpuscular Volume 97.8 fL (78.0-98.0); Mean Platelet Volume 8.9 fL (7.4-10.4); Platelet Count 170 10x3/uL (130-400); Red Blood Cell (RBC) Count 3.23 mill/uL (4.20-5.40)
[2024-04-04 07:18] LABS: Anion Gap 9 mmol/L (10-20); BUN (Urea Nitrogen) 16 mg/dL (9.8-20.1); Calc. Creatinine Clearance 29 mL/min (70-130); Calcium 9.1 mg/dL (7.8-10.44); Carbon Dioxide 26 mmol/L (23-31); Chloride 110 mmol/L (98-107); Estimated GFR 35; Glucose 114 mg/dL (83-110); Potassium 4.1 mmol/L (3.5-5.1); Sodium 141 mmol/L (136-145)
[2024-04-04 13:42] LABS: %CD4 (Helper/Inducer) 63.6 % (30.8-58.5); Absolute CD4 382 /uL (359-1519); Lymphocytes/Gated Cell Count 0.6 x10E3/uL (0.7-3.1); Total Lymphocyte 11 % (Not Estab.)
[2024-04-04] MEDS: cefTRIAXone\\ROCEPHIN 2 GM in Sodium Chloride 0.9% 100 ML IVPB SCH (14:06)
[2024-04-04] MEDS: DAPTOmycin 400 MG in Sodium Chloride 0.9% 50 ML IVPB SCH (15:20)
[2024-04-05 05:58] LABS: #Basophils 0.03 10x3/uL (0.0-0.2); %Basophils 0.6 % (0.0-1.0); %Eosinophils 2.6 % (0.0-10.0); %Lymphocytes 22.4 % (21.0-51.0); %Monocytes 11.1 % (0.0-10.0); %Neutrophils 63.1 % (42.0-75.0); Hematocrit 33.2 % (36.0-47.0); Hemoglobin 11.3 g/dL (12.0-16.0); Mean Corpuscular Volume 94.1 fL (78.0-98.0); Mean Platelet Volume 8.7 fL (7.4-10.4); Platelet Count 183 10x3/uL (130-400); RBC Distribution Width 12.9 % (11.5-14.5); Red Blood Cell (RBC) Count 3.53 mill/uL (4.20-5.40)
[2024-04-05 06:12] LABS: Anion Gap 13 mmol/L (10-20); BUN (Urea Nitrogen) 21 mg/dL (9.8-20.1); CK (CPK) 151 U/L (29-168); Calc. Creatinine Clearance 31 mL/min (70-130); Calcium 9.6 mg/dL (7.8-10.44); Carbon Dioxide 24 mmol/L (23-31); Chloride 108 mmol/L (98-107); Estimated GFR 38; Glucose 113 mg/dL (83-110); Potassium 3.8 mmol/L (3.5-5.1); Sodium 141 mmol/L (136-145)
[2024-04-05] MEDS ORDERED: Lidocaine 1% PF 5 ML VIAL ONE (09:55)
[2024-04-05] MEDS ORDERED: Sodium Bicarbonate 0.5 MEQ/ML SDV 10 ML ONE (09:55)
[2024-04-05] MEDS ORDERED: Bisacodyl 10 MG SUPP PR PRN (17:10)
[2024-04-05] MEDS: Docusate 100 MG CAP PO SCH (20:22)
[2024-04-06 06:03] LABS: #Basophils Less than 0.03 10x3/uL (0.0-0.2); %Basophils 0.4 % (0.0-1.0); %Eosinophils 3.5 % (0.0-10.0); %Lymphocytes 24.7 % (21.0-51.0); %Monocytes 9.5 % (0.0-10.0); %Neutrophils 61.5 % (42.0-75.0); Hematocrit 34.5 % (36.0-47.0); Hemoglobin 11.3 g/dL (12.0-16.0); Mean Corpuscular HGB CONC 32.8 g/dL (32.0-36.0); Mean Corpuscular Hemoglobin 32.1 pg (27.0-31.0); Platelet Count 202 10x3/uL (130-400); Red Blood Cell (RBC) Count 3.52 mill/uL (4.20-5.40)
[2024-04-06 06:53] LABS: Anion Gap 12 mmol/L (10-20); BUN (Urea Nitrogen) 24 mg/dL (9.8-20.1); Calc. Creatinine Clearance 28 mL/min (70-130); Calcium 9.3 mg/dL (7.8-10.44); Carbon Dioxide 24 mmol/L (23-31); Chloride 108 mmol/L (98-107); Estimated GFR 34; Glucose 109 mg/dL (83-110); Potassium 3.7 mmol/L (3.5-5.1); Sodium 140 mmol/L (136-145)
[2024-04-06 07:26] VITALS: TEMP 98
[2024-04-06] MEDS: [UNRECOGNIZED DRUG - OTHER] PO SCH (09:17)
[2024-04-06 17:00] VITALS: BP 167/79
== END 2024-04-06 18:35 | disposition home or self-care (01) | DRG 872 ==
LOC: ERS 17:02 → T4-B 18:48
PROVIDERS: ADMIT Internal Medicine; ATTEND Internal Medicine
PROC: 02HV33Z Insertion of Infusion Device into Superior Vena Cava, Percutaneous Approach (ICD-10-PCS; principal; 2024-04-05)
PROC: B5181ZA Fluoroscopy of Superior Vena Cava using Low Osmolar Contrast, Guidance (ICD-10-PCS; 2024-04-05)
DX: A41.9 Sepsis, unspecified organism (principal); M86.8X6 Other osteomyelitis, lower leg; L97.519 Non-pressure chronic ulcer of other part of right foot with unspecified severity; M10.9 Gout, unspecified; N18.32 Chronic kidney disease, stage 3b; I12.9 Hypertensive chronic kidney disease with stage 1 through stage 4 chronic kidney disease, or unspecified chronic kidney disease; L03.031 Cellulitis of right toe; I73.9 Peripheral vascular disease, unspecified; I25.10 Atherosclerotic heart disease of native coronary artery without angina pectoris; Z88.0 Allergy status to penicillin; Z88.8 Allergy status to other drugs, medicaments and biological substances; Z90.710 Acquired absence of both cervix and uterus; Z95.1 Presence of aortocoronary bypass graft
CPT/HCPCS: 36415; 36569; 71045; 76937; 77001; 80048; 80053; 80202; 81001; 82550; 83036; 83605; 85025; 86141; 86361; 87040; 87086; 93005; 93923; 96365; 96366; 96375; C1751; J0692; J0696; J0878; J1644; J2405; J3370; J7030